=== PATIENT | female | born 1950 | race Caucasian/White ===

== ENCOUNTER → 2016-10-11 | Outpatient (CLI) | payer OTHER ==
[~2016-10-11] MED LIST: ATRIN INH; DICY20TA35 PO; LEVA45AE INH; LORA-741 PO; OXGN; PRED10TA PO; SERT50TA PO
--- NOTE | 2016-10-11 09:34 | DIAGNOSTIC IMAGING REPORT ---
GI SERIES W/AIR ROUTINE CLINICAL HISTORY: Generalized abdominal pain. COMPARISON STUDY: None. FLUOROSCOPY TIME: 0.7 minutes. 11 images obtained. FINDINGS: The patient only performed the exam in the upright position and a few prone/supine images. The patient did not participate in the remaining portions of the examination. The esophagus appeared to be normal and course and caliber. No hiatus hernia. No gastroesophageal reflux. Limited views of the stomach show no definite gastric ulcerations. The duodenal bulb and duodenal C sweep were incompletely evaluated. Orthopaedic Doctor image shows no evidence for bowel obstruction. Remaining portions of the small bowel follow-through were not obtained. IMPRESSION: Limited upper GI series as described above. However, no significant abnormality identified. Electronically signed by: Danny Catalan M.D. 10/11/2016 9:33 AM Dictated Date/Time: 10/11/2016 9:30 AM
== END | disposition home or self-care (01) ==
LOC: C.RAD 08:44
PROVIDERS: ATTEND Internal Medicine Gastroenterology
DX: R10.10 Upper abdominal pain, unspecified (principal)

== ENCOUNTER 2016-11-12 15:20 | Inpatient (IN) | payer OTHER ==
[~2016-11-12] VITALS: Ht 154.9 cm; Wt 44.2 kg
[~2016-11-12 15:20] MED LIST changes: -ATRIN INH; -DICY20TA35 PO; -LEVA45AE INH; -OXGN; -PRED10TA PO
[2016-11-12] MEDS ORDERED: DICY20TA35 PO (15:30)
[2016-11-12] MEDS ORDERED: METHYLPREDNISOLONE 125 MG VIAL IV STA (15:43)
[2016-11-12] MEDS ORDERED: PIPERACILLIN/TAZOBACTAM 3.375 GM/100ML D5W IV STA (15:44)
[2016-11-12 15:57] LABS: BASO % 2.5 %; BASO ABS # 0.07 K/uL (0-0.2); COMPLETE YES; EOS % 2.1 %; HEMATOCRIT 45.1 % (37-47); LYMPH % 20.8 %; LYMPH ABS # 0.59 K/uL (1.2-3.4); MEAN CELL VOLUME 87.2 fL (80-100); MEAN CORPUSCULAR HEMOGLOBIN 30.2 pg (25-34); MEAN CORPUSCULAR HGB CONC 34.6 g/dl (32-36); MEAN PLATELET VOLUME 9.1 fL (7.4-10.4); MONO % 10.9 %; NEUT % 63.7 %; PLATELET COUNT 162 K/uL (130-400); RED BLOOD COUNT 5.17 M/uL (4.2-5.4); WHITE BLOOD COUNT 2.84 K/uL (4.8-10.8)
[2016-11-12] MEDS ORDERED: AMPICILLIN IV SCH (16:00)
[2016-11-12] MEDS ORDERED: SODIUM CHLORIDE 0.9% IV SCH (16:00)
--- NOTE | 2016-11-12 16:14 | DIAGNOSTIC IMAGING REPORT ---
SINGLE VIEW CHEST CLINICAL HISTORY: Cough and fever. FINDINGS: An AP, portable, upright chest radiograph is compared to study dated 11/21/2011. The examination is degraded by portable technique and apical lordotic positioning. The cardiomediastinal silhouette is unremarkable. There is atherosclerotic calcification of the thoracic aorta. Advanced emphysema and chronic interstitial thickening is similar to previous. No airspace consolidation is identified typical for pneumonia. Blunting the costophrenic sulci may represent trace effusions or pleural thickening. No pneumothorax is seen. The skeletal structures are osteopenic. The bony thorax is grossly intact. IMPRESSION: 1. Advanced emphysema. 2. There is no airspace consolidation to suggest pneumonia. 3. Blunting of the costophrenic sulci could represent trace pleural effusions versus pleural thickening. Pleural thickening is favored. Electronically signed by: Alton Ratliff M.D. 11/12/2016 4:13 PM Dictated Date/Time: 11/12/2016 4:11 PM
[2016-11-12 16:15] LABS: ALT/SGPT 32 U/L (12-78); AST/SGOT 22 U/L (15-37); BLOOD UREA NITROGEN 3 mg/dl (7-18); CALCIUM 8.6 mg/dl (8.5-10.1); CARBON DIOXIDE 31 mmol/L (21-32); CHLORIDE 100 mmol/L (98-107); GLUCOSE 85 mg/dl (70-99); POTASSIUM 3.8 mmol/L (3.5-5.1); SODIUM 138 mmol/L (136-145)
[2016-11-12 16:18] LABS: ALKALINE PHOSPHATASE 74 U/L (45-117)
[2016-11-12] MEDS ORDERED: OSELTAMIVIR PHOSPHATE 75 MG CAP PO STA (17:01)
[2016-11-12] MEDS ORDERED: LORAZEPAM 0.5 MG TAB SL STA (17:07)
[2016-11-12] MEDS ORDERED: ZOLPIDEM TARTRATE 5 MG TAB PO PRN (17:15)
[2016-11-12] MEDS ORDERED: ALUMINUM/MAGNESIUM/SIMETH (MAALOX MAX) 30 ML UDC PO PRN (17:15)
[2016-11-12] MEDS ORDERED: MAGNESIUM HYDROXIDE SUSP 30 ML UDC PO PRN (17:15)
[2016-11-12] MEDS ORDERED: DICYCLOMINE HCL 20 MG TAB PO PRN (17:15)
[2016-11-12] MEDS ORDERED: ONDANSETRON INJ 2 MG/ML 2 ML VIAL IV PRN (17:15)
--- NOTE | 2016-11-12 17:20 | History and Physical ---
History & Physical Date & Time of Service: Nov 12, 2016 at 17:12 Chief Complaint: Coughing, Resp. Problems Primary Care Physician: Constance Bass M.D. History of Present Illness Source: patient pt reports of having cough . SOB , low grade fever , post nasal drip , sinus congestion for past 3 days denies of any sick contact , did not had Flu shot this year ( " I never take shots" ) experiencing Orthopnea -unable to lie flat -due to profuse post nasal drip very poor appetite last night SOB got worse , unable to take deep breath on arrival to ED she was found tachycardic, Hypoxic , SPO2 78% in RA , improved after 3 L 02 via nasal canula refused to have Neb tx -worried about side effect ( Father of anaphylaxis , cardiac shock with Albuterol neb tx ) Cxray -severe emphysema ,no obvious infiltrate afebrile Influenza A + ve Past Medical/Surgical History Medical Problems: (1) 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 (2) Chronic obstructive lung disease Status: Chronic (3) DISACCHARIDASE DEF/MALAB Status: Chronic (4) LONG QT SYNDROME Status: Chronic (5) s/p delivery Status: Resolved (6) s/p colonoscopy Permanent Comment: routine screening 01/13/09 Status: Resolved (7) s/p EGD Permanent Comment: 03/17/09 Status: Resolved (8) s/p tonsillectomy Status: Resolved (9) Sensorineural hearing loss Status: Chronic (10) Tobacco user Status: Chronic Social History Smoking Status: Current Every Day Smoker Marital Status: Housing status: lives with family Occupational Status: employed Immunizations History of Influenza Vaccine: No History of Tetanus Vaccine?: Yes Tetanus Immunization Date: Aug 17, 2009 History of Pneumococcal: Yes Pneumococcal Date: Aug 17, 2009 History of Hepatitis B Vaccine: Unknown Multi-Drug Resistant Organisms History of MDRO: No Allergies Coded Allergies: Amitriptyline (Verified Allergy, Severe, PASSED OUT, 11/12/16) Quinolones (Verified Allergy, Intermediate, urticaria, 11/21/11) also has history of prolonged QT Bacitracin (Verified Allergy, Unknown, "SPORINS" ALLERGY PER NURSING HX, ) Cephalexin (Verified Allergy, Unknown, UNKNOWN, 11/12/16) Cephalosporins (Verified Allergy, Unknown, "SPORINS" ALLERGY PER NURSING HX, 11/21/11) Ciprofloxacin (Verified Allergy, Unknown, HIVES, 11/12/16) Codeine (Verified Allergy, Unknown, ., 11/21/11) Diphenhydramine (Verified Allergy, Unknown, PER NURSING HX, 11/21/11) Macrolides and Ketolides (Verified Allergy, Unknown, UNKNOWN, 11/12/16) Neomycin (Verified Allergy, Unknown, "SPORINS" ALLERGY PER NURSING HX, 08/22) Nitrofurantoin (Verified Allergy, Unknown, DIZZY, IREGULAR HEARTBEAT, ) Polymyxin B (Verified Allergy, Unknown, "SPORINS" ALLERGY PER NURSING HX, 11/21/11) Sulfa Drugs (Verified Allergy, Unknown, "SULFA" ALLERGY, 11/21/11) Tetracycline (Verified Allergy, Unknown, unknown, 11/21/11) Propoxyphene (Verified Adverse Reaction, Severe, SPINNING, HALLUCINATIONS , 11/12/16) Morphine (Verified Adverse Reaction, Intermediate, "affects BP", 11/21/11) Sulfamethoxazole w/Trimethoprim (Verified Adverse Reaction, Intermediate, palpitations, 11/21/11) Erythromycin (Verified Adverse Reaction, Mild, agitation, 11/21/11) Metronidazole (Verified Adverse Reaction, Unknown, IRREGULAR HEART BEAT, ) Uncoded Allergies: LATEX (Allergy, Unknown, ORAL & VAGINAL SORES, 11/12/16) Home Medications Scheduled Lorazepam (Ativan), 0.5 MG PO Q6HR PRN Sertraline (Zoloft), 50 MG PO DAILY Scheduled PRN Dicyclomine Hcl (Bentyl), 1 TAB PO QID PRN for Pain Review of Systems Constitutional: + chills, + fatigue, + fever, + sweats, + weakness, + weight loss ENT: + nasal symptoms, + problem reported (post nasal drip , sinus pressure ), + sore throat Respiratory: + cough, + dyspnea at rest, + dyspnea on exertion, + shortness of breath, + sputum, + wheezing Cardiovascular: + orthopnea Abdomen: No GI bleeding, No constipation, No diarrhea, No nausea, No pain, No problem reported, No vomiting Musculoskeletal: + joint pain Genitourinary - Female: No dysmenorrhea, No dysuria, No hematuria, No menorrhagia, No metrorrhagia, No , No problem reported, No rash, No urinary frequency, No urinary incontinence, No urinary retention, No urinary urgency, No vaginal bleeding, No vaginal discharge, No vaginal itching, No vulvodynia Neurologic: + vertigo, + weakness Psychiatric: + anxiety, + insomnia Endocrine: + fatigue Physical Exam Vital Signs Date Time Temp Pulse Resp B/P Pulse Ox O2 Delivery O2 Flow Rate FiO2 11/12/16 16:01 100 Nasal Cannula 3.0 11/12/16 15:50 98 Nasal Cannula 4.0 11/12/16 15:42 90 11/12/16 15:21 37.5 100 20 140/72 85 Room Air General Appearance: + cachetic Head: normocephalic, atraumatic Eyes: normal inspection Respiratory/Chest: + respiratory distress, + decreased breath sounds, + wheezing Cardiovascular: + tachycardia Abdomen/GI: non tender, soft Extremities/Musculoskelatal: normal inspection, no calf tenderness, normal capillary refill, no pedal edema, normal range of motion Neurologic/Psych: no motor/sensory deficits, alert, normal mood/affect, oriented x 3 Diagnostics Laboratory Results Results Past 24 Hours Test 11/12/16 15:45 11/12/16 15:55 11/12/16 16:15 Range/Units White Blood Count 2.84 4.8-10.8 K/uL Red Blood Count 5.17 4.2-5.4 M/uL Hemoglobin 15.6 12.0-16.0 g/dL Hematocrit 45.1 37-47 % Mean Corpuscular Volume 87.2 80-100 fL Mean Corpuscular Hemoglobin 30.2 25-34 pg Mean Corpuscular Hemoglobin Concent 34.6 32-36 g/dl Platelet Count 162 130-400 K/uL Mean Platelet Volume 9.1 7.4-10.4 fL Neutrophils (%) (Auto) 63.7 % Lymphocytes (%) (Auto) 20.8 % Monocytes (%) (Auto) 10.9 % Eosinophils (%) (Auto) 2.1 % Basophils (%) (Auto) 2.5 % Neutrophils # (Auto) 1.81 1.4-6.5 K/uL Lymphocytes # (Auto) 0.59 1.2-3.4 K/uL Monocytes # (Auto) 0.31 0.11-0.59 K/uL Eosinophils # (Auto) 0.06 0-0.5 K/uL Basophils # (Auto) 0.07 0-0.2 K/uL RDW Standard Deviation 40.5 36.4-46.3 fL RDW Coefficient of Variation 12.6 11.5-14.5 % Immature Granulocyte % (Auto) 0.0 % Immature Granulocyte # (Auto) 0.00 0.00-0.02 K/uL Sodium Level 138 136-145 mmol/L Potassium Level 3.8 3.5-5.1 mmol/L Chloride Level 100 98-107 mmol/L Carbon Dioxide Level 31 21-32 mmol/L Anion Gap 7.0 3-11 mmol/L Blood Urea Nitrogen 3 7-18 mg/dl Creatinine 0.50 0.60-1.20 mg/dl Est Creatinine Clear Calc Drug Dose 75.1 ml/min Estimated GFR () 115.3 Estimated GFR (Non- 99.4 BUN/Creatinine Ratio 5.0 10-20 Random Glucose 85 70-99 mg/dl Calcium Level 8.6 8.5-10.1 mg/dl Total Bilirubin 0.3 0.2-1 mg/dl Direct Bilirubin < 0.1 0-0.2 mg/dl Aspartate Amino Transf (AST/SGOT) 22 15-37 U/L Alanine Aminotransferase (ALT/SGPT) 32 12-78 U/L Alkaline Phosphatase 74 45-117 U/L Total Protein 7.7 6.4-8.2 gm/dl Albumin 4.2 3.4-5.0 gm/dl Lactic Acid Level 0.6 0.4-2.0 mmol/L Influenza Type A Antigen POS for Influ A NEG Influenza Type B Antigen Neg for Influ B NEG Diagnostic Radiology SINGLE VIEW CHEST CLINICAL HISTORY: Cough and fever. FINDINGS: An AP, portable, upright chest radiograph is compared to study dated 11/21/2011. The examination is degraded by portable technique and apical lordotic positioning. The cardiomediastinal silhouette is unremarkable. There is atherosclerotic calcification of the thoracic aorta. Advanced emphysema and chronic interstitial thickening is similar to previous. No airspace consolidation is identified typical for pneumonia. Blunting the costophrenic sulci may represent trace effusions or pleural thickening. No pneumothorax is seen. The skeletal structures are osteopenic. The bony thorax is grossly intact. IMPRESSION: 1. Advanced emphysema. 2. There is no airspace consolidation to suggest pneumonia. 3. Blunting of the costophrenic sulci could represent trace pleural effusions versus pleural thickening. Pleural thickening is favored. Impression Assessment and Plan INFLUENZA A possible causing Hypoxia /COPD exacerbation Tamiflu 75 mg BID for 5 days no evidence of sepsis mild neutropenia -possible due to viral illness, repeat CBC in AM lactic acid 0.6 droplet isolation COPD EXACERBATION : hx of Chronic smoking 1 pk cig a day /50 yrs never had Pulmonology follow up or PFT done possible due to Influenza A -cont Tamiflu no evidence of pneumonia in chest Xray -advance COPD empiric abx not ordered -pt is allergic to multiple antibiotics given Solu Medrol 125 mg x1 in ED will cont Solu Medrol 40 mg IV Q 8hrs Neb tx ordered , cont supplemental 02 Pulmonology consult requested may need 2 step exercise prior to discharge HYPOXIA : due to above was hypoxic in RA on presentation 89% improved to 100 % with supplemental 02 3L via NC ( not on home 02 ) -may need 2 step exercise prior to discharge due to influenza A /COPD exacerbation Cxray : 1. Advanced emphysema. 2. There is no airspace consolidation to suggest pneumonia. cont tx for Influenza and COPD as outlined above low clinical suspicion for PE -no tachycardia /chest pain , no identifiable risk factor D Dimer 260 TOBACCO ABUSE DISORDER : hx of Chronic smoking 1 pk cig a day /50 yrs smoking cessation counselling provided refused Nicotine patch CHRONIC LONG QTc SYNDROME : check EKG repeat EKG in AM avoid medications /antibiotic that can cause Qtc prolongation monitor K /mg level DEPRESSION /ANXIETY DISORDER cont Zoloft PRN Ativan FULL CODE DVT PROPHYLAXIS : sub q heparin DISPOSITION : expected to be discharged home when medically stable Medicine follow up with Dr Constance Bass Level of Care Med/Surg Resuscitation Status FULL RESUSCITATION VTE Prophylaxis VTE Risk Assessment Done? Y/N: Yes Risk Level: Moderate Given or contraindicated: Unfractionated heparin SQ Note In my clinical judgment this beneficiary meets acute admission criteria, established by [facility], that includes being hospitalized through two midnights. Additional Copies To Constance Bass M.D.
[2016-11-12] MEDS ORDERED: LEVALBUTEROL/IPRATROPIUM NEB INH PRN (17:30)
[2016-11-12] MEDS ORDERED: PROMETHAZINE HCL INJ 12.5 MG in SODIUM CHLORIDE 0.9% 50ML 50 ML IV PRN (17:30)
[2016-11-12] MEDS ORDERED: SODIUM CHLORIDE 0.9% 1000ML 1,000 ML IV SCH (17:30)
--- NOTE | 2016-11-12 17:39 | EMERGENCY ROOM VISIT NOTE ---
History Report prepared by Herrera: Jany Denney Under the Supervision of: Dr. Matt Demarco D.O. First contact with patient: 15:26 Chief Complaint: SHORTNESS OF BREATH Stated Complaint: COUGHING, RESP. PROBLEMS History of Present Illness The patient is a 66 year old female who presents to the Emergency Room with complaints of constant shortness of breath beginning 3 days ago. The patient complains of a scratchy throat, beige productive cough, post nasal drip, and sore throat. She denies any abdominal pain, nausea, vomiting, urinary symptoms, chest pain, and fever at 99.4. She reports that she has COPD and is a smoker. She notes that she is not on oxygen at home and has no history of heart failure or recent steroid usage. The patient states that he has a lot of issues with antibiotics and only takes penicillins. She notes that she has never used an inhaler due to her father having a history of problems with inhalers. Source of History: patient Onset: 3 days ago Position: other (global) Quality: other (SOB) Timing: constant Associated Symptoms: + cough, + sorethroat, No abdominal pain, No chest pain , No fevers, No nausea, No urinary symptoms, No vomiting Note: The patient complains of a scratchy throat, post nasal drip. Review of Systems See HPI for pertinent positives & negatives. A total of 10 systems reviewed and were otherwise negative. Past Medical & Surgical Medical Problems: (1) ADJUSTMENT DISORDER WITH DEPRESSED MOOD (2) Chronic obstructive lung disease (3) DISACCHARIDASE DEF/MALAB (4) Hypoxia (5) Influenza A (6) LONG QT SYNDROME (7) s/p delivery (8) s/p colonoscopy (9) s/p EGD (10) s/p tonsillectomy (11) Sensorineural hearing loss (12) Tobacco user Family History No pertinent family history stated. Social History Smoking Status: Current Every Day Smoker Alcohol Use: occasionally Marital Status: Occupation Status: employed Current/Historical Medications Scheduled Lorazepam (Ativan), 0.5 MG PO Q6HR PRN Sertraline (Zoloft), 50 MG PO DAILY Scheduled PRN Dicyclomine Hcl (Bentyl), 1 TAB PO QID PRN for Pain Allergies Coded Allergies: Amitriptyline (Verified Allergy, Severe, PASSED OUT, 11/12/16) Quinolones (Verified Allergy, Intermediate, urticaria, 11/21/11) also has history of prolonged QT Bacitracin (Verified Allergy, Unknown, "SPORINS" ALLERGY PER NURSING HX, ) Cephalexin (Verified Allergy, Unknown, UNKNOWN, 11/12/16) Cephalosporins (Verified Allergy, Unknown, "SPORINS" ALLERGY PER NURSING HX, 11/21/11) Ciprofloxacin (Verified Allergy, Unknown, HIVES, 11/12/16) Codeine (Verified Allergy, Unknown, ., 11/21/11) Diphenhydramine (Verified Allergy, Unknown, PER NURSING HX, 11/21/11) Macrolides and Ketolides (Verified Allergy, Unknown, UNKNOWN, 11/12/16) Neomycin (Verified Allergy, Unknown, "SPORINS" ALLERGY PER NURSING HX, 08/22) Nitrofurantoin (Verified Allergy, Unknown, DIZZY, IREGULAR HEARTBEAT, ) Polymyxin B (Verified Allergy, Unknown, "SPORINS" ALLERGY PER NURSING HX, 11/21/11) Sulfa Drugs (Verified Allergy, Unknown, "SULFA" ALLERGY, 11/21/11) Tetracycline (Verified Allergy, Unknown, unknown, 11/21/11) Propoxyphene (Verified Adverse Reaction, Severe, SPINNING, HALLUCINATIONS , 11/12/16) Morphine (Verified Adverse Reaction, Intermediate, "affects BP", 11/21/11) Sulfamethoxazole w/Trimethoprim (Verified Adverse Reaction, Intermediate, palpitations, 11/21/11) Erythromycin (Verified Adverse Reaction, Mild, agitation, 11/21/11) Metronidazole (Verified Adverse Reaction, Unknown, IRREGULAR HEART BEAT, ) Uncoded Allergies: LATEX (Allergy, Unknown, ORAL & VAGINAL SORES, 11/12/16) Physical Exam Vital Signs Date Time Temp Pulse Resp B/P Pulse Ox O2 Delivery O2 Flow Rate FiO2 11/12/16 16:54 143/77 11/12/16 16:20 92 21 99 11/12/16 16:01 100 Nasal Cannula 3.0 11/12/16 15:50 98 Nasal Cannula 4.0 11/12/16 15:42 90 11/12/16 15:21 37.5 100 20 140/72 85 Room Air Physical Exam GENERAL: ill appearing, mild distress, non-toxic, on nasal canula. EYE EXAM: normal conjunctiva OROPHARYNX: no exudate, no erythema, lips, buccal mucosa, and tongue normal and mucous membranes are moist NECK: supple, no nuchal rigidity, no adenopathy, non-tender, no JVD LUNGS: Minimal air movement bilaterally with diffuse mild wheezing. HEART: no murmurs, S1 normal and S2 normal ABDOMEN: abdomen soft, non-tender, normo-active bowel sounds, no masses, no rebound or guarding. BACK: Back is symmetrical on inspection and there is no deformity, no midline tenderness, no CVA tenderness. SKIN: no rashes and no bruising UPPER EXTREMITIES: upper extremities are grossly normal. LOWER EXTREMITIES: Calves are equal bilaterally. No pitting edema. NEURO EXAM: Normal sensorium, cranial nerves II-XII grossly intact, normal speech, no gross weakness of arms, no gross weakness of legs. Medical Decision & Procedures ER Provider Diagnostic Interpretation: Xray results per the radiologist and my interpretation. SINGLE VIEW CHEST FINDINGS: An AP, portable, upright chest radiograph is compared to study dated 11/21/2011. The examination is degraded by portable technique and apical lordotic positioning. The cardiomediastinal silhouette is unremarkable. There is atherosclerotic calcification of the thoracic aorta. Advanced emphysema and chronic interstitial thickening is similar to previous. No airspace consolidation is identified typical for pneumonia. Blunting the costophrenic sulci may represent trace effusions or pleural thickening. No pneumothorax is seen. The skeletal structures are osteopenic. The bony thorax is grossly intact. IMPRESSION: 1. Advanced emphysema. 2. There is no airspace consolidation to suggest pneumonia. 3. Blunting of the costophrenic sulci could represent trace pleural effusions versus pleural thickening. Pleural thickening is favored. Electronically signed by: Alton Ratliff M.D. 11/12/2016 4:13 PM Dictated Date/Time: 11/12/2016 4:11 PM Laboratory Results 11/12/16 15:45 Red Blood Count 5.17, Mean Corpuscular Volume 87.2, Mean Corpuscular Hemoglobin 30.2, Mean Corpuscular Hemoglobin Concent 34.6, Mean Platelet Volume 9.1, Neutrophils (%) (Auto) 63.7, Lymphocytes (%) (Auto) 20.8, Monocytes (%) (Auto) 10.9, Eosinophils (%) (Auto) 2.1, Basophils (%) (Auto) 2.5, Neutrophils # (Auto ) 1.81, Lymphocytes # (Auto) 0.59, Monocytes # (Auto) 0.31, Eosinophils # (Auto ) 0.06, Basophils # (Auto) 0.07 11/12/16 15:45 Test 11/12/16 15:45 11/12/16 15:55 11/12/16 16:15 White Blood Count 2.84 K/uL (4.8-10.8) Red Blood Count 5.17 M/uL (4.2-5.4) Hemoglobin 15.6 g/dL (12.0-16.0) Hematocrit 45.1 % (37-47) Mean Corpuscular Volume 87.2 fL (80-100) Mean Corpuscular Hemoglobin 30.2 pg (25-34) Mean Corpuscular Hemoglobin Concent 34.6 g/dl (32-36) Platelet Count 162 K/uL (130-400) Mean Platelet Volume 9.1 fL (7.4-10.4) Neutrophils (%) (Auto) 63.7 % Lymphocytes (%) (Auto) 20.8 % Monocytes (%) (Auto) 10.9 % Eosinophils (%) (Auto) 2.1 % Basophils (%) (Auto) 2.5 % Neutrophils # (Auto) 1.81 K/uL (1.4-6.5) Lymphocytes # (Auto) 0.59 K/uL (1.2-3.4) Monocytes # (Auto) 0.31 K/uL (0.11-0.59) Eosinophils # (Auto) 0.06 K/uL (0-0.5) Basophils # (Auto) 0.07 K/uL (0-0.2) RDW Standard Deviation 40.5 fL (36.4-46.3) RDW Coefficient of Variation 12.6 % (11.5-14.5) Immature Granulocyte % (Auto) 0.0 % Immature Granulocyte # (Auto) 0.00 K/uL (0.00-0.02) Prothrombin Time 11.5 SECONDS (9.0-12.0) Prothromb Time International Ratio 1.1 (0.9-1.1) Activated Partial Thromboplast Time 35.0 SECONDS (21.0-31.0) Partial Thromboplastin Ratio 1.3 D-Dimer 260 ug/L FEU (0-500) Anion Gap 7.0 mmol/L (3-11) Est Creatinine Clear Calc Drug Dose 75.1 ml/min Estimated GFR () 115.3 Estimated GFR (Non- 99.4 BUN/Creatinine Ratio 5.0 (10-20) Calcium Level 8.6 mg/dl (8.5-10.1) Magnesium Level 2.0 mg/dl (1.8-2.4) Total Bilirubin 0.3 mg/dl (0.2-1) Direct Bilirubin < 0.1 mg/dl (0-0.2) Aspartate Amino Transf (AST/SGOT) 22 U/L (15-37) Alanine Aminotransferase (ALT/SGPT) 32 U/L (12-78) Alkaline Phosphatase 74 U/L (45-117) Total Protein 7.7 gm/dl (6.4-8.2) Albumin 4.2 gm/dl (3.4-5.0) Lactic Acid Level 0.6 mmol/L (0.4-2.0) Influenza Type A Antigen POS for Influ A (NEG) Influenza Type B Antigen Neg for Influ B (NEG) Laboratory results per my review. Medications Administered Medications (Trade) Dose Ordered Sig/Leroy Route Start Time Stop Time Status Last Admin Dose Admin Methylprednisolone Sodium Succinate (Solu-Medrol IV) 125 mg NOW STAT IV 11/12/16 15:43 11/12/16 15:44 DC 11/12/16 15:58 125 MG Oseltamivir Phosphate (Tamiflu Cap) 75 mg NOW STAT PO 11/12/16 17:01 11/12/16 17:02 DC 11/12/16 17:43 75 MG Lorazepam (Ativan Tab) 0.5 mg NOW STAT SL 11/12/16 17:07 11/12/16 17:09 DC 11/12/16 17:43 0.5 MG ECG Indication: SOB/dyspnea Rate (beats per minute): 90 Rhythm: sinus rhythm Findings: Q waves (Septal), other (normal axis) ED Course ED COURSE: Vital signs were reviewed and showed hypoxia The patients medical record was reviewed The above diagnostic studies were performed and reviewed. ED treatments and interventions as stated above. 1532: The patient was evaluated in room B12B. A complete history and physical examination was performed. Patient refused neb treatments and all antibiotics. 1543: Solu-Medrol IV 125mg IV. 1555: I reevaluated the patient and talked with her about putting her on Zosyn. She said that she sometimes passes out so she wants to do ampicillin. 1600: Ampicillin Sodium 800mg/Sodium Chloride 53.2 ml @ 100mls/hr IV. 1700: I updated the patient and re-paged Luci. 1701: Tamiflu Cap 75mg PO. 1707: Ativan Tab 0.5mg SL. 1707: I reviewed the patient's case with Dr. Covarrubias. She will evaluate the patient for further management. 1715: Upon reevaluation, the patient is hemodynamically stable.I discussed my findings with the patient and she understands and agrees with the treatment plan. Based on the patients age, coexisting illnesses, exam and lab findings the decision to treat as an inpatient was made. The patient remained stable while under my care. The patient will be evaluated for further management. Medical Decision Differential diagnoses includes but is not limited to pneumonia, bronchitis, COPD/Asthma exacerbation, pneumothorax, pulmonary embolism, congestive heart failure, acute coronary syndrome Patient is a 58-year-old female who presents the ER respiratory distress. Pulse ox was 70% on room air. She is placed on 4 L nasal cannula with improvement in her O2 saturations into the 90s. She has a history of COPD and new productive cough. She has of this has been worsening for at least 24 hours. Patient has multiple allergies to antibiotics. She notes that she is only able to take amoxicillin. Consequently I did order her dose of ampicillin. Following this influenza did come back positive. Chest x-ray showed no focal infiltrate. She was given steroids. She declined a treatments as this killed her father per the patient. With the oxygen and steroid she did feel slightly better. She is still hypoxic. She is admitted to internal medicine with influenza causing hypoxia and a COPD exacerbation. Consults Time Called: [phone] Consulting Physician: Dr. Covarrubias Returned Call: [phone] I reviewed the patient's case with Dr. Covarrubias. She will evaluate the patient for further management. Impression Primary Impression: Influenza Additional Impressions: Hypoxia COPD exacerbation Scribe Attestation The scribe's documentation has been prepared under my direction and personally reviewed by me in its entirety. I confirm that the note above accurately reflects all work, treatment, procedures, and medical decision making performed by me. Departure Information Dispostion Being Evaluated By Hospitalist Referrals Constance Bass M.D. (PCP) Patient Instructions My [facility] Problem Qualifiers
[2016-11-12] MEDS ORDERED: LEVALBUTEROL 1.25MG/0.5ML NEB INH PRN (18:00)
[2016-11-12] MEDS ORDERED: POLYETHYLENE (MIRALAX) 17 GM PACK PO PRN (18:00)
[2016-11-12] MEDS ORDERED: IPRATROPIUM BROMIDE NEB SOLN 0.02% 2.5 ML VIAL INH PRN (18:00)
[2016-11-12 18:09] LABS: INR 1.1 (0.9-1.1); PARTIAL THROMBOPLASTIN RATIO 1.3; PROTHROMBIN TIME (PATIENT) 11.5 SECONDS (9.0-12.0)
[2016-11-12 19:42] VITALS: PULSE 107; O2SAT 96
[2016-11-12 20:25] VITALS: BP 151/76; PULSE 95; TEMP 37.3; O2SAT 96; Ht 154.9 cm; Wt 44.2 kg
[2016-11-12] MEDS: HEPARIN SOD 5000 UNIT/0.5 ML CARP SQ SCH (20:26)
[2016-11-12] MEDS: OSELTAMIVIR PHOSPHATE 75 MG CAP PO SCH (20:26)
[2016-11-13] VITALS: O2SAT 95
[2016-11-13] MEDS: METHYLPREDNISOLONE IV 40 MG in SYRINGE 0 ML IV SCH ×3 (00:06→20:33)
[2016-11-13 00:12] VITALS: BP 108/67; PULSE 81; TEMP 37.6; O2SAT 97
[2016-11-13] MEDS: ACETAMINOPHEN 325 MG TAB PO PRN ×2 (03:59→09:40)
[2016-11-13 07:56] LABS: CREATININE 0.43 mg/dl (0.60-1.20); HEMATOCRIT 37.7 % (37-47); MEAN CELL VOLUME 87.9 fL (80-100); MEAN CORPUSCULAR HEMOGLOBIN 29.6 pg (25-34); MEAN CORPUSCULAR HGB CONC 33.7 g/dl (32-36); MEAN PLATELET VOLUME 9.1 fL (7.4-10.4); PLATELET COUNT 159 K/uL (130-400); RED BLOOD COUNT 4.29 M/uL (4.2-5.4)
[2016-11-13 07:57] LABS: BUN/CREATININE RATIO 10.5 (10-20); CALCIUM 8.1 mg/dl (8.5-10.1); POTASSIUM 4.2 mmol/L (3.5-5.1)
[2016-11-13 08:00] VITALS: O2SAT 97
[2016-11-13 08:04] VITALS: BP 109/56; PULSE 65; TEMP 36.3; O2SAT 93
[2016-11-13] MEDS: HEPARIN SOD 5000 UNIT/0.5 ML CARP SQ SCH ×2 (09:00→20:33)
[2016-11-13] MEDS: OSELTAMIVIR PHOSPHATE 75 MG CAP PO SCH ×2 (09:22→20:32)
[2016-11-13] MEDS: SERTRALINE HCL 50 MG TAB PO SCH (09:23)
--- NOTE | 2016-11-13 10:43 | Progress Note ---
Internal Med Progress Note Date of Service: Nov 13, 2016. Provider Documentation: SUBJECTIVE: Patient is seen and examine jahaira bedside. She feels better today. SOB and dry cough improving. Denies any chest pain, nausea, vomiting, dizziness, abd pain. Offers no other complaints. OBJECTIVE: Vital Signs-as noted below Physical Exam: General Appearance:Thin, fragile, no apparent distress Head: normocephalic, Atraumatic Eyes: normal inspection, EOMI, PERRLA Neck: supple, Trachea midline Respiratory/Chest: Decreased breath sounds, minimal creps at bases, No accessory muscle use Cardiovascular: S1, S2, No murmur Abdomen/GI:Soft, Non tender, Bowel sounds present Extremities/Musculoskelatal:normal inspection, no edema Neurologic/Psych:AAOX3, grossly no focal neurological deficits Skin: normal color, warm Lab data as noted below. ASSESSMENT & PLAN: INFLUENZA A Continue Tamiflu 75 mg BID for 5 days neutropenia -possible due to viral illness lactic acid 0.6 droplet isolation Monitor WBC, check Procalcitonin ACUTE HYPOXIC RESPIRATORY FAILURE secondary to Influenza/COPD Patient presented with hypoxic, 85% on RA CXR:Advanced COPD, no consolidation, likely pleural thickening continue Tamiflu, IV steroids D Dimer: 260, No signs of PE ACUTE COPD EXACERBATION : H/O Chronic smoking 1 pk per day for 50 yrs Never had Pulmonology follow up or PFT done possible due to Influenza A empiric abx not ordered -pt is allergic to multiple antibiotics Continue Solu Medrol 40 mg IV BID Neb PRN, cont supplemental 02 Pulmonology consulted May need 2 step exercise prior to discharge TOBACCO ABUSE DISORDER : smoking cessation counselling provided refused Nicotine patch CHRONIC LONG QTc SYNDROME : EKG: QTC wnl monitor K /mg level DEPRESSION /ANXIETY DISORDER cont Zoloft PRN Ativan CODE STATUS: FULL CODE DVT PROPHYLAXIS : sub q heparin DISPOSITION : Continue to monitor Medicine follow up with Dr Constance Bass PROCEDURES; CXR: 1. Advanced emphysema. 2. There is no airspace consolidation to suggest pneumonia. 3. Blunting of the costophrenic sulci could represent trace pleural effusions versus pleural thickening. Pleural thickening is favored. Vital Signs: Date Time Temp Pulse Resp B/P Pulse Ox O2 Delivery O2 Flow Rate FiO2 11/13/16 08:04 36.3 65 18 109/56 93 Nasal Cannula 3.0 11/13/16 00:12 37.6 81 18 108/67 97 3.0 11/13/16 00:00 95 Nasal Cannula 3.0 11/12/16 20:25 37.3 95 20 151/76 96 Nasal Cannula 3.0 11/12/16 19:42 107 22 96 Nasal Cannula 4.0 11/12/16 18:39 97 24 133/79 95 Nasal Cannula 2.5 11/12/16 18:20 98 17 96 11/12/16 17:44 115/84 11/12/16 17:44 94 20 115/84 95 Nasal Cannula 3.0 11/12/16 17:20 95 15 96 11/12/16 16:54 143/77 11/12/16 16:20 92 21 99 11/12/16 16:01 100 Nasal Cannula 3.0 11/12/16 15:50 98 Nasal Cannula 4.0 11/12/16 15:42 90 11/12/16 15:21 37.5 100 20 140/72 85 Room Air Lab Results: Results Past 24 Hours Test 11/12/16 15:45 11/12/16 15:55 11/12/16 16:15 11/13/16 06:50 Range/Units White Blood Count 2.84 1.50 4.8-10.8 K/uL Red Blood Count 5.17 4.29 4.2-5.4 M/uL Hemoglobin 15.6 12.7 12.0-16.0 g/dL Hematocrit 45.1 37.7 37-47 % Mean Corpuscular Volume 87.2 87.9 80-100 fL Mean Corpuscular Hemoglobin 30.2 29.6 25-34 pg Mean Corpuscular Hemoglobin Concent 34.6 33.7 32-36 g/dl Platelet Count 162 159 130-400 K/uL Mean Platelet Volume 9.1 9.1 7.4-10.4 fL Neutrophils (%) (Auto) 63.7 % Lymphocytes (%) (Auto) 20.8 % Monocytes (%) (Auto) 10.9 % Eosinophils (%) (Auto) 2.1 % Basophils (%) (Auto) 2.5 % Neutrophils # (Auto) 1.81 1.4-6.5 K/uL Lymphocytes # (Auto) 0.59 1.2-3.4 K/uL Monocytes # (Auto) 0.31 0.11-0.59 K/uL Eosinophils # (Auto) 0.06 0-0.5 K/uL Basophils # (Auto) 0.07 0-0.2 K/uL RDW Standard Deviation 40.5 40.8 36.4-46.3 fL RDW Coefficient of Variation 12.6 12.7 11.5-14.5 % Immature Granulocyte % (Auto) 0.0 % Immature Granulocyte # (Auto) 0.00 0.00-0.02 K/uL Prothrombin Time 11.5 9.0-12.0 SECONDS Prothromb Time International Ratio 1.1 0.9-1.1 Activated Partial Thromboplast Time 35.0 21.0-31.0 SECONDS Partial Thromboplastin Ratio 1.3 D-Dimer 260 0-500 ug/L FEU Sodium Level 138 134 136-145 mmol/L Potassium Level 3.8 4.2 3.5-5.1 mmol/L Chloride Level 100 98 98-107 mmol/L Carbon Dioxide Level 31 27 21-32 mmol/L Anion Gap 7.0 9.0 3-11 mmol/L Blood Urea Nitrogen 3 5 7-18 mg/dl Creatinine 0.50 0.43 0.60-1.20 mg/dl Est Creatinine Clear Calc Drug Dose 75.1 87.4 ml/min Estimated GFR () 115.3 121.1 Estimated GFR (Non- 99.4 104.5 BUN/Creatinine Ratio 5.0 10.5 10-20 Random Glucose 85 98 70-99 mg/dl Calcium Level 8.6 8.1 8.5-10.1 mg/dl Magnesium Level 2.0 2.0 1.8-2.4 mg/dl Total Bilirubin 0.3 0.2-1 mg/dl Direct Bilirubin < 0.1 0-0.2 mg/dl Aspartate Amino Transf (AST/SGOT) 22 15-37 U/L Alanine Aminotransferase (ALT/SGPT) 32 12-78 U/L Alkaline Phosphatase 74 45-117 U/L Total Protein 7.7 6.4-8.2 gm/dl Albumin 4.2 3.4-5.0 gm/dl Lactic Acid Level 0.6 0.4-2.0 mmol/L Influenza Type A Antigen POS for Influ A NEG Influenza Type B Antigen Neg for Influ B NEG Test 11/13/16 10:38 Range/Units
--- NOTE | 2016-11-13 11:20 | PULMONARY CONSULTATION ---
DATE OF CONSULTATION: 11/13/2016 HISTORY OF PRESENT ILLNESS: The patient is a 66-year-old female who was admitted to the hospital through the Emergency Room with worsening shortness of breath. Dr. Covarrubias has asked me to evaluate the patient from a pulmonary standpoint. She actually put the consult in for Dr. Munoz but he is away on vacation, I am covering the pulmonary service this week. The patient has had development of cough associated with shortness of breath about 5 days ago. She then 3 days ago developed some coryza associated with mild sore throat, sputum production but the sputum was beige in color but she only produced sputum twice with coughing. She denies aspiration, fevers or night sweats, developed worsening shortness of breath with a temp of 99.4. She was seen then in the Emergency Room with shortness of breath by Dr. Matt Demarco. Hemodynamically she was stable with an oxygen saturation of 85% at 1521 hours yesterday on room air, on 3 liters was 100%. She was admitted to the hospital, states she feels considerably improved today. The rhinitis is improving. She has not had a cough. She has not been out of bed much except to go to the bathroom, has some mild shortness of breath with exertion. Travel history and environmental histories are otherwise unremarkable. She is not using any inhalers at home. No one in her family has been ill. REVIEW OF SYSTEMS: Otherwise unremarkable. PAST MEDICAL HISTORY: Significant for chronic obstructive lung disease, prolonged QT syndrome, disaccharidase deficiency, adjustment disorder. PAST SURGICAL HISTORY: Positive for tonsillectomy, colonoscopy, EGD, recent upper GI series and a . She also has some hearing loss. FAMILY HISTORY: Unremarkable. SOCIAL HISTORY: She started smoking about age 12, about a pack a day and still smoking a pack of cigarettes a day, which gives her about [id number] history of cigarette smoking. She is not an alcohol user. 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 She is originally from [place]. ALLERGIES: NOTED AND ARE MULTIPLE. SHE IS RELUCTANT TO TAKE ALBUTEROL BECAUSE APPARENTLY HER FATHER FROM ANAPHYLAXIS FROM THAT MEDICATION. PHYSICAL EXAMINATION: VITAL SIGNS: Stable now, blood pressure is 108/67, oxygen saturation 97% on 3 liters and she has been afebrile since admission with a temp of 37.5 at the time of admission. Her weight is 44.2 kilograms. GENERAL: She was here with chest pain in 2012. Her weight was 60 kilograms at that point, so she has lost a considerable amount of weight over the last 5 years. HEENT: Unremarkable. No coryza is noted. No posterior pharyngeal abnormalities noted. There is no thrush. No adenopathy is noted. Carotid upstroke normal. Thyroid normal. She is quite thin. Expansion of the thorax is very good with deep inspiration. HEART: Regular rate and rhythm. No murmurs are heard. LUNGS: Reveal decreased breath sounds bilaterally, otherwise are clear. ABDOMEN: Soft, nontender. She has no cyanosis, clubbing or edema. EKG shows probable lead reversal with I suspect some right atrial enlargement, poor R-wave progression across the precordium and she could have possible septal infarction. Her chest x-ray revealed some cardiomegaly with probable pleural thickening at the left lower lobe area laterally. No pneumothorax is noted. There appears to be an apical lordotic film as well. Some chronic interstitial changes are noted compared to previous chest x-ray of 11/21/2011. I do not believe it has changed appreciably. No pulmonary infiltrates are noted. LABORATORY DATA: White count was 2.84, hemoglobin 15.6, hematocrit 45%, platelet count of 162,000. Chemistry profile is unremarkable with normal liver function studies. Lactate level was normal at 0.6 as well as the coagulation profile and D-dimer. Influenza A antigen is positive, influenza B antigen is negative. IMPRESSION: 1. Chronic obstructive pulmonary disease with exacerbation. 2. Influenza A. 3. Gastroesophageal reflux disease. RECOMMENDATIONS: 1. Continue with her present medications. I think the methylprednisolone could be tapered down to 20 mg q. 8 hours and perhaps she could be placed on prednisone starting tomorrow. 2. I think the Tamiflu may help but usually I think should be started within 48 hours of the illness and she has had this for about 4 days, but she seems to be tolerating it well. As long as she does not develop any significant vertigo, that could be finished out over a several-day period of time. 3. Continue on the Xopenex and Atrovent 4 times a day as needed. She has no wheezing now. 4. Smoking cessation discussed with the patient at great length. Overall, she is stable today. Thanks for asking me to evaluate Anish Fatemeh. Dr. Tuttle will tack picker her care tomorrow morning.
[2016-11-13 15:35] VITALS: BP 119/68; PULSE 66; TEMP 36.8; O2SAT 96
[2016-11-13 20:00] VITALS: O2SAT 95
[2016-11-13] MEDS: LORAZEPAM 0.5 MG TAB PO PRN (20:31)
[2016-11-14 00:36] VITALS: BP 127/64; PULSE 76; TEMP 36.7; O2SAT 92
[2016-11-14 06:41] LABS: COMPLETE YES; HEMATOCRIT 42.6 % (37-47); IG% 0.3 %; LYMPH ABS # 0.95 K/uL (1.2-3.4); MEAN CELL VOLUME 89.5 fL (80-100); MEAN CORPUSCULAR HEMOGLOBIN 29.6 pg (25-34); MEAN CORPUSCULAR HGB CONC 33.1 g/dl (32-36); MONO % 10.1 %; NEUT % 63.6 %; PLATELET COUNT 170 K/uL (130-400); RED BLOOD COUNT 4.76 M/uL (4.2-5.4); WHITE BLOOD COUNT 3.65 K/uL (4.8-10.8)
[2016-11-14 06:58] VITALS: BP 128/73; PULSE 64; TEMP 36.7; O2SAT 93
[2016-11-14 07:16] LABS: BUN/CREATININE RATIO 10.9 (10-20); CALCIUM 8.3 mg/dl (8.5-10.1); CREATININE 0.49 mg/dl (0.60-1.20); MAGNESIUM 2.2 mg/dl (1.8-2.4); POTASSIUM 4.4 mmol/L (3.5-5.1)
[2016-11-14] MEDS: SERTRALINE HCL 50 MG TAB PO SCH (09:37)
[2016-11-14] MEDS: OSELTAMIVIR PHOSPHATE 75 MG CAP PO SCH ×2 (09:37→21:00)
[2016-11-14] MEDS: HEPARIN SOD 5000 UNIT/0.5 ML CARP SQ SCH ×2 (09:37→20:50)
[2016-11-14] MEDS: METHYLPREDNISOLONE IV 40 MG in SYRINGE 0 ML IV SCH ×2 (09:38→21:17)
--- NOTE | 2016-11-14 11:42 | Pulmonology Progress Note ---
Pulmonary Progress Note Date of Service Nov 14, 2016. Attending Dr. Tuttle Subjective Feeling improved today. Denies any increased cough, dyspnea, wheeze or chest pain. Slept well over the night last night for the first time in several days. Denies any edema. Anticipating ambulating the halls today. Objective 66-yo female admitted to [facility] through the ER 11/12/16 with symptoms of cough, malaise and hypoxia. CXR 11/12/16 consistent with emphysema and subtle pleural thickening. Influenza PCR: + Influenza A. Pct: <0.05. She was treated with IV steroid, oseltamivir (day #3) and PRN levalbuterol-ipratropium (received x 1 11/12). Of note, she is hesitant to take any medications/inhalers on a daily basis but stated that she did tolerate levalbuterol-ipratropium x 1 without complication. PMHx includes: COPD/emphysema (no prior PFTs or pulmonary f/u), h/o long QTc, GERD, and current tobacco use: 50-pack year. Today: - 92-93% O2 via 2-3LPM nasal cannula - WBC/Hgb/Hct/Plts: 3.65/14.1/42.6/170 - CO2 elevated 35 (from 27) Physical Exam: Constitutional: Well developed thin female sitting upright in hospital bed. No acute distress Head: + facial symmetry Eyes: EOMi, PERRLA, no injection Mouth: Moist mucous membranes. Several missing teeth. No visible lesions. Respiratory: Non-labored respirations. Very reduced air movement bilaterally. No wheeze, rales or rhonchi. CV: RRR, no MRG. Warm and perfused peripherally. MSK/Extremities: Moving and developed symmetrically. No peripheral edema or erythema Neurologic: A&O. Good data recall. Appropriate affect. Assessment & Plan 66-yo female admitted with exacerbation of COPD + Influenza A. She is responding well to current treatment with steroid and oseltamivir. We did discuss her daily inhalers and prior pulmonary care. She is very resistant to taking any new medications and specifically - long-acting medications/inhalers. She did tolerate levalbuterol-ipratropium 11/12/16 and is willing to continue this regimen as an outpatient. She stated she would not use a medication like Spiriva or a LABA/ICS secondary to her fears of an adverse. 1. Wean steroid to 50mg PO prednisone tomorrow 2. Ambulatory O2 assessment prior to discharge: 2-step 3. Trial Atrovent and Xopenex HFA TID in-house with spacer under observation - has tolerated nebulized formulation 4. Will need lung CA screening CT - chest and PFTs as part of outpatient follow- up Data Medications: Current Inpatient Medications Medications (Trade) Dose Ordered Sig/Leroy Route Start Time Stop Time Status Last Admin Dose Admin Acetaminophen (Tylenol Tab) 650 mg Q4H PRN PO 11/12/16 17:15 12/12/16 17:14 11/13/16 09:40 650 MG Al Hydrox/Mg Hydrox/Simethicone (Maalox Max Susp) 15 ml Q4H PRN PO 11/12/16 17:15 12/12/16 17:14 Magnesium Hydroxide (Milk Of Magnesia Susp) 30 ml Q6H PRN PO 11/12/16 17:15 12/12/16 17:14 Polyethylene (Miralax Powder Packet) 17 gm DAILY PRN PO 11/12/16 18:00 12/12/16 17:59 Zolpidem Tartrate (Ambien Tab) 5 mg HSZ PRN PO 11/12/16 17:15 12/12/16 17:14 Heparin Sodium (Porcine) (Heparin Sq 5000 Unit/0.5ml) 5,000 unit Q12H SQ 11/12/16 21:00 12/12/16 20:59 Oseltamivir Phosphate (Tamiflu Cap) 75 mg BID PO 11/12/16 21:00 11/17/16 20:59 11/14/16 09:37 75 MG Dicyclomine HCl (Bentyl Tab) 20 mg QID PRN PO 11/12/16 17:15 12/12/16 17:14 Lorazepam (Ativan Tab) 0.5 mg Q6 PRN PO 11/12/16 17:15 12/12/16 17:14 11/13/16 20:31 0.5 MG Sertraline HCl 50 mg 50 mg DAILY PO 11/13/16 09:00 12/13/16 08:59 11/14/16 09:37 50 MG Promethazine HCl/ Sodium Chloride (Phenergan Inj/ Nss 50ml) 50.5 ml @ 204 mls/hr Q6H PRN IV 11/12/16 17:30 12/12/16 17:29 Ipratropium [place] (Atrovent 0.02% 0.5MG/2.5ML Neb) 0.5 mg Q6R PRN INH 11/12/16 18:00 12/12/16 17:59 11/12/16 19:41 0.5 MG Levalbuterol 1.25 mg 1.25 mg Q6R PRN INH 11/12/16 18:00 12/12/16 17:59 11/12/16 19:41 1.25 MG Methylprednisolone Sodium Succinate/ Syringe (Solu-Medrol IV/ Syringe) 0.64 ml @ 1.5 mls/min BID IV 11/13/16 21:00 12/13/16 20:59 11/14/16 09:38 1.5 MLS/MIN I & O: 24-Hour Column 11/14/16 07:59 Intake Total 1435 ml Output Total 3700 ml Balance -2265 ml Vital Signs: Date Time Temp Pulse Resp B/P Pulse Ox O2 Delivery O2 Flow Rate FiO2 11/14/16 08:30 Nasal Cannula 2.0 11/14/16 06:58 36.7 64 18 128/73 93 Nasal Cannula 2.0 11/14/16 00:36 36.7 76 18 127/64 92 3.0 11/14/16 00:00 Nasal Cannula 2.0 11/13/16 20:00 Nasal Cannula 3.0 11/13/16 16:00 Room Air 11/13/16 15:35 36.8 66 18 119/68 96 Nasal Cannula 3.0 Laboratory Results: Last 24 Hours Test 11/14/16 06:22 White Blood Count 3.65 K/uL Red Blood Count 4.76 M/uL Hemoglobin 14.1 g/dL Hematocrit 42.6 % Mean Corpuscular Volume 89.5 fL Mean Corpuscular Hemoglobin 29.6 pg Mean Corpuscular Hemoglobin Concent 33.1 g/dl Platelet Count 170 K/uL Mean Platelet Volume 9.0 fL Neutrophils (%) (Auto) 63.6 % Lymphocytes (%) (Auto) 26.0 % Monocytes (%) (Auto) 10.1 % Eosinophils (%) (Auto) 0.0 % Basophils (%) (Auto) 0.0 % Neutrophils # (Auto) 2.32 K/uL Lymphocytes # (Auto) 0.95 K/uL Monocytes # (Auto) 0.37 K/uL Eosinophils # (Auto) 0.00 K/uL Basophils # (Auto) 0.00 K/uL RDW Standard Deviation 42.2 fL RDW Coefficient of Variation 12.8 % Immature Granulocyte % (Auto) 0.3 % Immature Granulocyte # (Auto) 0.01 K/uL Sodium Level 140 mmol/L Potassium Level 4.4 mmol/L Chloride Level 100 mmol/L Carbon Dioxide Level 35 mmol/L Anion Gap 5.0 mmol/L Blood Urea Nitrogen 5 mg/dl Creatinine 0.49 mg/dl Est Creatinine Clear Calc Drug Dose 76.7 ml/min Estimated GFR () 116.0 Estimated GFR (Non- 100.1 BUN/Creatinine Ratio 10.9 Random Glucose 87 mg/dl Calcium Level 8.3 mg/dl Magnesium Level 2.2 mg/dl
[2016-11-14 14:27] VITALS: BP 132/70; PULSE 67; TEMP 36.8; O2SAT 94
--- NOTE | 2016-11-14 14:27 | Progress Note ---
Internal Med Progress Note Date of Service: Nov 14, 2016. Provider Documentation: SUBJECTIVE: Patient is seen and examine jahaira bedside. States having some productive cough. SOB and wheezing improving. Denies any chest pain, nausea, vomiting, dizziness, abd pain. Offers no other complaints. OBJECTIVE: Vital Signs-as noted below Physical Exam: General Appearance:Thin, fragile, no apparent distress Head: normocephalic, Atraumatic Eyes: normal inspection, EOMI, PERRLA Neck: supple, Trachea midline Respiratory/Chest: Decreased breath sounds, CTA, No accessory muscle use Cardiovascular: S1, S2, No murmur Abdomen/GI:Soft, Non tender, Bowel sounds present Extremities/Musculoskelatal:normal inspection, no edema Neurologic/Psych:AAOX3, grossly no focal neurological deficits Skin: normal color, warm Lab data as noted below. ASSESSMENT & PLAN: INFLUENZA A Continue Tamiflu 75 mg BID for 5 days neutropenia -possible due to viral illness, improving lactic acid 0.6 droplet isolation Monitor WBC Procalcitonin:wnl ACUTE HYPOXIC RESPIRATORY FAILURE secondary to Influenza/COPD Patient presented with hypoxic, 85% on RA CXR:Advanced COPD, no consolidation, likely pleural thickening continue Tamiflu, IV steroids D Dimer: 260, No signs of PE ACUTE COPD EXACERBATION : H/O Chronic smoking 1 pk per day for 50 yrs Never had Pulmonology follow up or PFT done possible due to Influenza A empiric abx not ordered -pt is allergic to multiple antibiotics Continue Solu Medrol 40 mg IV BID Plan to transition to 50mg PO prednisone tomorrow Neb PRN, cont supplemental 02 Appreciate Pulmonology help May need 2 step exercise prior to discharge Reluctant to take any new meds like long acting inhalers (Family member from use) Trial of Atrovent and Xopenex HFA TID today TOBACCO ABUSE DISORDER : smoking cessation counselling provided refused Nicotine patch CHRONIC LONG QTc SYNDROME : EKG: QTC wnl monitor K /mg level DEPRESSION /ANXIETY DISORDER cont Zoloft PRN Ativan CODE STATUS: FULL CODE DVT PROPHYLAXIS : sub q heparin DISPOSITION : Continue to monitor Medicine follow up with Dr Constance Bass Needs lung CA screening CT - chest and PFTs as outpatient follow-up PROCEDURES; CXR: 1. Advanced emphysema. 2. There is no airspace consolidation to suggest pneumonia. 3. Blunting of the costophrenic sulci could represent trace pleural effusions versus pleural thickening. Pleural thickening is favored. Vital Signs: Date Time Temp Pulse Resp B/P Pulse Ox O2 Delivery O2 Flow Rate FiO2 11/14/16 14:27 36.8 67 18 132/70 94 Nasal Cannula 2.0 11/14/16 08:30 Nasal Cannula 2.0 11/14/16 06:58 36.7 64 18 128/73 93 Nasal Cannula 2.0 11/14/16 00:36 36.7 76 18 127/64 92 3.0 11/14/16 00:00 Nasal Cannula 2.0 11/13/16 20:00 Nasal Cannula 3.0 11/13/16 16:00 Room Air 11/13/16 15:35 36.8 66 18 119/68 96 Nasal Cannula 3.0 Lab Results: Results Past 24 Hours Test 11/14/16 06:22 Range/Units White Blood Count 3.65 4.8-10.8 K/uL Red Blood Count 4.76 4.2-5.4 M/uL Hemoglobin 14.1 12.0-16.0 g/dL Hematocrit 42.6 37-47 % Mean Corpuscular Volume 89.5 80-100 fL Mean Corpuscular Hemoglobin 29.6 25-34 pg Mean Corpuscular Hemoglobin Concent 33.1 32-36 g/dl Platelet Count 170 130-400 K/uL Mean Platelet Volume 9.0 7.4-10.4 fL Neutrophils (%) (Auto) 63.6 % Lymphocytes (%) (Auto) 26.0 % Monocytes (%) (Auto) 10.1 % Eosinophils (%) (Auto) 0.0 % Basophils (%) (Auto) 0.0 % Neutrophils # (Auto) 2.32 1.4-6.5 K/uL Lymphocytes # (Auto) 0.95 1.2-3.4 K/uL Monocytes # (Auto) 0.37 0.11-0.59 K/uL Eosinophils # (Auto) 0.00 0-0.5 K/uL Basophils # (Auto) 0.00 0-0.2 K/uL RDW Standard Deviation 42.2 36.4-46.3 fL RDW Coefficient of Variation 12.8 11.5-14.5 % Immature Granulocyte % (Auto) 0.3 % Immature Granulocyte # (Auto) 0.01 0.00-0.02 K/uL Sodium Level 140 136-145 mmol/L Potassium Level 4.4 3.5-5.1 mmol/L Chloride Level 100 98-107 mmol/L Carbon Dioxide Level 35 21-32 mmol/L Anion Gap 5.0 3-11 mmol/L Blood Urea Nitrogen 5 7-18 mg/dl Creatinine 0.49 0.60-1.20 mg/dl Est Creatinine Clear Calc Drug Dose 76.7 ml/min Estimated GFR () 116.0 Estimated GFR (Non- 100.1 BUN/Creatinine Ratio 10.9 10-20 Random Glucose 87 70-99 mg/dl Calcium Level 8.3 8.5-10.1 mg/dl Magnesium Level 2.2 1.8-2.4 mg/dl
[2016-11-14] MEDS: IPRATROPIUM BROMIDE HFA INHALER INH SCH ×2 (14:49→20:52)
[2016-11-14] MEDS: LEValbuterol HFA 15GM INHALER INH SCH ×2 (14:52→20:53)
[2016-11-14] MEDS: LORAZEPAM 0.5 MG TAB PO PRN (19:52)
[2016-11-14 19:55] VITALS: O2SAT 97
[2016-11-15 00:07] VITALS: BP 109/64; PULSE 68; TEMP 36.9; O2SAT 90
[2016-11-15 07:28] VITALS: BP 133/69; PULSE 56; TEMP 36.8; O2SAT 96
[2016-11-15 08:14] LABS: BASO % 0.3 %; BASO ABS # 0.01 K/uL (0-0.2); COMPLETE YES; HEMATOCRIT 41.6 % (37-47); LYMPH % 23.6 %; LYMPH ABS # 0.83 K/uL (1.2-3.4); MEAN CELL VOLUME 90.8 fL (80-100); MEAN CORPUSCULAR HEMOGLOBIN 29.3 pg (25-34); MEAN CORPUSCULAR HGB CONC 32.2 g/dl (32-36); MEAN PLATELET VOLUME 9.5 fL (7.4-10.4); NEUT % 66.1 %; PLATELET COUNT 179 K/uL (130-400); RED BLOOD COUNT 4.58 M/uL (4.2-5.4); WHITE BLOOD COUNT 3.51 K/uL (4.8-10.8)
[2016-11-15 08:45] LABS: BUN/CREATININE RATIO 13.3 (10-20); CALCIUM 8.7 mg/dl (8.5-10.1); CREATININE 0.42 mg/dl (0.60-1.20); MAGNESIUM 2.3 mg/dl (1.8-2.4)
[2016-11-15] MEDS: HEPARIN SOD 5000 UNIT/0.5 ML CARP SQ SCH ×2 (09:00→21:00)
[2016-11-15] MEDS: IPRATROPIUM BROMIDE HFA INHALER INH SCH ×3 (09:02→21:00)
[2016-11-15] MEDS: OSELTAMIVIR PHOSPHATE 75 MG CAP PO SCH ×2 (09:03→21:08)
[2016-11-15] MEDS: LEValbuterol HFA 15GM INHALER INH SCH ×3 (09:04→21:00)
[2016-11-15] MEDS: SERTRALINE HCL 50 MG TAB PO SCH (09:04)
[2016-11-15] MEDS: METHYLPREDNISOLONE IV 40 MG in SYRINGE 0 ML IV SCH (09:07)
--- NOTE | 2016-11-15 12:41 | PULMONARY PROGRESS NOTE ---
DATE: 11/15/2016 TIME: 12:05 p.m. SUBJECTIVE: The patient is generally feeling better. She has very little cough. She is less short of breath. She has no specific complaints at the present time. Her oxygen saturations have remained marginal. I took her off of oxygen for a few minutes and her saturations were 89%. She states she thinks her saturations are usually about 95% when she goes to her family doctor. OBJECTIVE: GENERAL: The patient appears comfortable. Temperature is 36.8. The patient is slender. BMI is 18.4. ENT: Unremarkable. CARDIAC: Rate is 56 beats per minute. The rhythm is regular. Blood pressure 133/69. Respiratory rate 18 breaths per minute. LUNGS: Lung diaz revealed diminished breath sounds. No active wheezing was heard. Saturations are as noted above. EXTREMITIES: Showed no cyanosis, clubbing or edema. LABORATORY DATA: White blood cell count is still low at 3.51. It is unknown if this is a chronic situation or if it is due to a viral infection such as influenza. Hemoglobin is 13.4. Platelets were 179,000. Electrolytes show sodium 136, potassium 4.0, chloride 96, and bicarbonate 32. BUN was 6 with a creatinine of 0.42. IMPRESSIONS: 1. Influenza A. 2. Chronic obstructive pulmonary disease with exacerbation secondary to #1. 3. Emphysema. 4. Hypoxia. 5. Leukopenia. COMMENTS AND RECOMMENDATIONS: The patient has been very cautious with medicines. She states there is a family history of QT interval prolongation. She is very concerned about the problems that may occur. She believes that she has had this for a period of time. She describes having syncopal episodes at various times during her lifetime that she thinks might have been related to that. She is concerned about the effects of medications on QT interval. She did try Atrovent inhaler and Xopenex inhaler. She apparently did not have any side effects with them. She was uncertain if they made a significant difference or not. She seems receptive to trying the inhalers upon discharge. In the past, they tried to do pulmonary function test on her. She states she had a hard time doing it properly because she had dentures and she could not perform a good seal around the tube when they were doing the test. She is on methylprednisolone that I think certainly could be switched to prednisone and tapered fairly readily. I do not have any objections to her being discharged. She needs a 2-step to determine if she may need home oxygen. The patient requested one of my card because she indicated she might want to be seen for a pulmonary outpatient evaluation. I explained to her that that would be feasible if she so desired, but she should speak to her family physician about that.
--- NOTE | 2016-11-15 14:57 | Progress Note ---
Subjective Date of Service: Nov 15, 2016. Subjective Pt evaluation today including: conversation w/ patient, physical exam, lab review, review of studies, conversation w/ independent marketing consultant, review of inpatient medication list Saw/examined the patient in room 254 She is feeling slightly better today No respiratory distress, no wheezing continues to agree with nebulizer treatments two step performed - requiring 2L O2 continuously Problem List Medical Problems: (1) COPD exacerbation Status: Acute (2) Influenza Status: Acute Review of Systems Constitutional: No chills, No fever Respiratory: + cough, + shortness of breath, + sputum, No dyspnea at rest, No dyspnea on exertion, No hemoptysis, No wheezing Cardiac: No chest pain, No edema, No palpitations Abdomen: No constipation, No diarrhea, No nausea, No pain, No vomiting Female : No dysuria, No urinary frequency Heme: No abnormal bleeding/bruising Medications Current Inpatient Medications Medications (Trade) Dose Ordered Sig/Leroy Route Start Time Stop Time Status Last Admin Dose Admin Acetaminophen (Tylenol Tab) 650 mg Q4H PRN PO 11/12/16 17:15 12/12/16 17:14 11/13/16 09:40 650 MG Al Hydrox/Mg Hydrox/Simethicone (Maalox Max Susp) 15 ml Q4H PRN PO 11/12/16 17:15 12/12/16 17:14 Magnesium Hydroxide (Milk Of Magnesia Susp) 30 ml Q6H PRN PO 11/12/16 17:15 12/12/16 17:14 Polyethylene (Miralax Powder Packet) 17 gm DAILY PRN PO 11/12/16 18:00 12/12/16 17:59 Zolpidem Tartrate (Ambien Tab) 5 mg HSZ PRN PO 11/12/16 17:15 12/12/16 17:14 Heparin Sodium (Porcine) (Heparin Sq 5000 Unit/0.5ml) 5,000 unit Q12H SQ 11/12/16 21:00 12/12/16 20:59 Oseltamivir Phosphate (Tamiflu Cap) 75 mg BID PO 11/12/16 21:00 11/17/16 20:59 11/15/16 09:03 75 MG Dicyclomine HCl (Bentyl Tab) 20 mg QID PRN PO 11/12/16 17:15 12/12/16 17:14 Lorazepam (Ativan Tab) 0.5 mg Q6 PRN PO 11/12/16 17:15 12/12/16 17:14 11/14/16 19:52 0.5 MG Sertraline HCl 50 mg 50 mg DAILY PO 11/13/16 09:00 12/13/16 08:59 11/15/16 09:04 50 MG Promethazine HCl/ Sodium Chloride (Phenergan Inj/ Nss 50ml) 50.5 ml @ 204 mls/hr Q6H PRN IV 11/12/16 17:30 12/12/16 17:29 Ipratropium [place] (Atrovent 0.02% 0.5MG/2.5ML Neb) 0.5 mg Q6R PRN INH 11/12/16 18:00 12/12/16 17:59 11/12/16 19:41 0.5 MG Levalbuterol (Xopenex 1.25MG/ 0.5ML Neb) 1.25 mg Q6R PRN INH 11/12/16 18:00 12/12/16 17:59 11/12/16 19:41 1.25 MG Ipratropium [place] (Atrovent Hfa Inhaler) 2 puffs TID INH 11/14/16 14:00 12/14/16 13:59 11/15/16 14:44 2 PUFFS Levalbuterol (Xopenex Hfa Inhaler) 2 puffs TID INH 11/14/16 14:00 12/14/16 13:59 11/15/16 14:44 2 PUFFS Prednisone (PredniSONE TAB) 50 mg DAILY PO 11/16/16 09:00 12/16/16 08:59 Objective Vital Signs Date Time Temp Pulse Resp B/P Pulse Ox O2 Delivery O2 Flow Rate FiO2 11/15/16 08:00 Nasal Cannula 1.0 11/15/16 07:28 36.8 56 18 133/69 96 2.0 11/15/16 00:07 36.9 68 16 109/64 90 Room Air 11/15/16 00:00 Nasal Cannula 2.0 11/14/16 19:55 97 Room Air 11/14/16 16:08 Nasal Cannula 2.0 Physical Exam General Appearance: no apparent distress, + thin Respiratory/Chest: no respiratory distress, no accessory muscle use, + decreased breath sounds Cardiovascular: regular rate, rhythm, no edema, no murmur Abdomen: normal bowel sounds, non tender, soft Extremities: normal inspection, no pedal edema Neurologic/Psychiatric: no motor/sensory deficits, alert, normal mood/affect Skin: normal color Laboratory Results Last 24 Hours Test 11/15/16 07:35 White Blood Count 3.51 K/uL Red Blood Count 4.58 M/uL Hemoglobin 13.4 g/dL Hematocrit 41.6 % Mean Corpuscular Volume 90.8 fL Mean Corpuscular Hemoglobin 29.3 pg Mean Corpuscular Hemoglobin Concent 32.2 g/dl Platelet Count 179 K/uL Mean Platelet Volume 9.5 fL Neutrophils (%) (Auto) 66.1 % Lymphocytes (%) (Auto) 23.6 % Monocytes (%) (Auto) 10.0 % Eosinophils (%) (Auto) 0.0 % Basophils (%) (Auto) 0.3 % Neutrophils # (Auto) 2.32 K/uL Lymphocytes # (Auto) 0.83 K/uL Monocytes # (Auto) 0.35 K/uL Eosinophils # (Auto) 0.00 K/uL Basophils # (Auto) 0.01 K/uL RDW Standard Deviation 43.2 fL RDW Coefficient of Variation 12.9 % Immature Granulocyte % (Auto) 0.0 % Immature Granulocyte # (Auto) 0.00 K/uL Sodium Level 136 mmol/L Potassium Level 4.0 mmol/L Chloride Level 96 mmol/L Carbon Dioxide Level 32 mmol/L Anion Gap 8.0 mmol/L Blood Urea Nitrogen 6 mg/dl Creatinine 0.42 mg/dl Est Creatinine Clear Calc Drug Dose 89.5 ml/min Estimated GFR () 122.1 Estimated GFR (Non- 105.3 BUN/Creatinine Ratio 13.3 Random Glucose 97 mg/dl Calcium Level 8.7 mg/dl Magnesium Level 2.3 mg/dl Assessment and Plan This is a 66 year old female with PMH of severe COPD, IBS, depression/anxiety presents with worsening shortness of breath Acute COPD exacerbation likely secondary to Influenza A has been treated with IV steroids refusing Spiriva, albuterol, LABA, etc. due to family history of anaphylaxis agreeable to Xarelto-Atrovent nebs/inhalers for today, we will taper Solu-medrol to PO prednisone one week prednisone taper as per pulm two step performed - requiring 2L O2 continuously can be re-evaluated as an outpatient by PCP and pulmonology for the need for O2 Influenza A finish tamiflu course hemodynamically stable Depression/Anxiety continue home medications DVT ppx subq heparin FULL CODE
[2016-11-15 15:37] VITALS: BP 146/81; PULSE 59; TEMP 36.8; O2SAT 97
[2016-11-15] MEDS: ACETAMINOPHEN 325 MG TAB PO PRN (16:14)
[2016-11-15 16:20] VITALS: O2SAT 97
[2016-11-15] MEDS: LORAZEPAM 0.5 MG TAB PO PRN (21:04)
[2016-11-16 00:25] VITALS: BP 133/71; PULSE 63; TEMP 36.8; O2SAT 91
[2016-11-16 06:56] LABS: HEMATOCRIT 43.9 % (37-47); MEAN CORPUSCULAR HEMOGLOBIN 29.4 pg (25-34); PLATELET COUNT 183 K/uL (130-400); RED BLOOD COUNT 4.93 M/uL (4.2-5.4); WHITE BLOOD COUNT 3.84 K/uL (4.8-10.8)
[2016-11-16 07:19] VITALS: BP 121/71; PULSE 60; TEMP 37.1; O2SAT 93
[2016-11-16 07:29] LABS: BUN/CREATININE RATIO 10.7 (10-20); CALCIUM 8.4 mg/dl (8.5-10.1); CREATININE 0.55 mg/dl (0.60-1.20); MAGNESIUM 2.2 mg/dl (1.8-2.4); POTASSIUM 3.7 mmol/L (3.5-5.1)
[2016-11-16 08:17] LABS: BASO % 0.5 %; BASO ABS # 0.02 K/uL (0-0.2); COMPLETE YES; EOS % 1.3 %; LYMPH ABS # 1.92 K/uL (1.2-3.4); MONO % 15.4 %; NEUT % 32.8 %
[2016-11-16] MEDS: LEValbuterol HFA 15GM INHALER INH SCH (08:43)
[2016-11-16] MEDS: IPRATROPIUM BROMIDE HFA INHALER INH SCH (08:43)
[2016-11-16] MEDS: OSELTAMIVIR PHOSPHATE 75 MG CAP PO SCH (08:46)
[2016-11-16] MEDS: HEPARIN SOD 5000 UNIT/0.5 ML CARP SQ SCH (08:47)
--- NOTE | 2016-11-16 08:54 | Progress Note ---
Subjective Date of Service: Nov 16, 2016. Subjective Pt evaluation today including: conversation w/ patient, physical exam, lab review, review of studies, review of inpatient medication list Saw/examined the patient in room 254 Doing well, eager to go home, no shortness of breath or chest pain Problem List Medical Problems: (1) COPD exacerbation Status: Acute (2) Influenza Status: Acute Review of Systems Constitutional: No chills, No fever, No weakness Respiratory: + cough, + sputum, No dyspnea at rest, No dyspnea on exertion, No hemoptysis, No shortness of breath, No wheezing Cardiac: No chest pain, No edema, No palpitations Abdomen: No constipation, No diarrhea, No nausea, No pain, No vomiting Heme: No abnormal bleeding/bruising Medications Current Inpatient Medications Medications (Trade) Dose Ordered Sig/Leroy Route Start Time Stop Time Status Last Admin Dose Admin Acetaminophen (Tylenol Tab) 650 mg Q4H PRN PO 11/12/16 17:15 12/12/16 17:14 11/15/16 16:14 650 MG Al Hydrox/Mg Hydrox/Simethicone (Maalox Max Susp) 15 ml Q4H PRN PO 11/12/16 17:15 12/12/16 17:14 Magnesium Hydroxide (Milk Of Magnesia Susp) 30 ml Q6H PRN PO 11/12/16 17:15 12/12/16 17:14 Polyethylene (Miralax Powder Packet) 17 gm DAILY PRN PO 11/12/16 18:00 12/12/16 17:59 Zolpidem Tartrate (Ambien Tab) 5 mg HSZ PRN PO 11/12/16 17:15 12/12/16 17:14 Heparin Sodium (Porcine) (Heparin Sq 5000 Unit/0.5ml) 5,000 unit Q12H SQ 11/12/16 21:00 12/12/16 20:59 Oseltamivir Phosphate (Tamiflu Cap) 75 mg BID PO 11/12/16 21:00 11/17/16 20:59 11/16/16 08:46 75 MG Dicyclomine HCl (Bentyl Tab) 20 mg QID PRN PO 11/12/16 17:15 12/12/16 17:14 Lorazepam (Ativan Tab) 0.5 mg Q6 PRN PO 11/12/16 17:15 12/12/16 17:14 3/7/17 21:04 0.5 MG Sertraline HCl 50 mg 50 mg DAILY PO 11/13/16 09:00 12/13/16 08:59 11/15/16 09:04 50 MG Promethazine HCl/ Sodium Chloride (Phenergan Inj/ Nss 50ml) 50.5 ml @ 204 mls/hr Q6H PRN IV 11/12/16 17:30 12/12/16 17:29 Ipratropium [place] (Atrovent 0.02% 0.5MG/2.5ML Neb) 0.5 mg Q6R PRN INH 11/12/16 18:00 12/12/16 17:59 11/12/16 19:41 0.5 MG Levalbuterol (Xopenex 1.25MG/ 0.5ML Neb) 1.25 mg Q6R PRN INH 11/12/16 18:00 12/12/16 17:59 11/12/16 19:41 1.25 MG Ipratropium [place] (Atrovent Hfa Inhaler) 2 puffs TID INH 11/14/16 14:00 12/14/16 13:59 11/16/16 08:43 2 PUFFS Levalbuterol (Xopenex Hfa Inhaler) 2 puffs TID INH 11/14/16 14:00 12/14/16 13:59 11/16/16 08:43 2 PUFFS Prednisone (PredniSONE TAB) 50 mg DAILY PO 11/16/16 09:00 12/16/16 08:59 11/16/16 08:44 50 MG Objective Vital Signs Date Time Temp Pulse Resp B/P Pulse Ox O2 Delivery O2 Flow Rate FiO2 11/16/16 07:19 37.1 60 18 121/71 93 Nasal Cannula 2.0 11/16/16 00:25 36.8 63 16 133/71 91 2.0 11/16/16 00:00 Nasal Cannula 2.0 11/15/16 16:20 97 Nasal Cannula 2.0 11/15/16 15:37 36.8 59 18 146/81 97 Nasal Cannula 2.0 Physical Exam General Appearance: no apparent distress, + thin Respiratory/Chest: chest non-tender, lungs clear, normal breath sounds, no respiratory distress, no accessory muscle use Cardiovascular: regular rate, rhythm, no edema, no murmur Extremities: normal inspection, no pedal edema Skin: normal color Laboratory Results Last 24 Hours Test 11/16/16 06:35 White Blood Count 3.84 K/uL Red Blood Count 4.93 M/uL Hemoglobin 14.5 g/dL Hematocrit 43.9 % Mean Corpuscular Volume 89.0 fL Mean Corpuscular Hemoglobin 29.4 pg Mean Corpuscular Hemoglobin Concent 33.0 g/dl Platelet Count 183 K/uL Mean Platelet Volume 9.0 fL Neutrophils (%) (Auto) 32.8 % Lymphocytes (%) (Auto) 50.0 % Monocytes (%) (Auto) 15.4 % Eosinophils (%) (Auto) 1.3 % Basophils (%) (Auto) 0.5 % Neutrophils # (Auto) 1.26 K/uL Lymphocytes # (Auto) 1.92 K/uL Monocytes # (Auto) 0.59 K/uL Eosinophils # (Auto) 0.05 K/uL Basophils # (Auto) 0.02 K/uL RDW Standard Deviation 41.5 fL RDW Coefficient of Variation 12.7 % Immature Granulocyte % (Auto) 0.0 % Immature Granulocyte # (Auto) 0.00 K/uL Sodium Level 138 mmol/L Potassium Level 3.7 mmol/L Chloride Level 97 mmol/L Carbon Dioxide Level 34 mmol/L Anion Gap 7.0 mmol/L Blood Urea Nitrogen 6 mg/dl Creatinine 0.55 mg/dl Est Creatinine Clear Calc Drug Dose 68.3 ml/min Estimated GFR () 111.7 Estimated GFR (Non- 96.4 BUN/Creatinine Ratio 10.7 Random Glucose 79 mg/dl Calcium Level 8.4 mg/dl Magnesium Level 2.2 mg/dl Assessment and Plan This is a 66 year old female with PMH of severe COPD, IBS, depression/anxiety presents with worsening shortness of breath Acute COPD exacerbation 11/16 secondary to Influenza A doing well today currently on 2L of oxygen via nasal cannula two step performed yesterday - requiring O2 for home script written - to receive oxygen tank later today will d/c home with prednisone taper 11/15 likely secondary to Influenza A has been treated with IV steroids refusing Spiriva, albuterol, LABA, etc. due to family history of anaphylaxis agreeable to Xarelto-Atrovent nebs/inhalers for today, we will taper Solu-medrol to PO prednisone one week prednisone taper as per pulm two step performed - requiring 2L O2 continuously can be re-evaluated as an outpatient by PCP and pulmonology for the need for O2 Influenza A finish tamiflu course (last dose on 11/16) hemodynamically stable Depression/Anxiety continue home medications DVT ppx subq heparin FULL CODE Discharge planning: home
[2016-11-16] MEDS: SERTRALINE HCL 50 MG TAB PO SCH (09:00)
[2016-11-16] MEDS ORDERED: PRED10TA PO (09:01)
[2016-11-16] MEDS ORDERED: LEVA45AE INH (09:01)
[2016-11-16] MEDS ORDERED: ATRIN INH (09:01)
[2016-11-16] MEDS ORDERED: OXGN (09:03)
--- NOTE | 2016-11-16 09:07 | Discharge Instructions ---
Discharge Instructions Date of Service Nov 16, 2016. Admission Reason for Admission: Hypoxia Infuenza A Discharge Discharge Diagnosis / Problem: Hypoxia, Influenza A, COPD exacerbation Discharge Goals Goal(s): Decrease discomfort, Improve function, Diagnostic testing, Therapeutic intervention Activity Recommendations Activity Limitations: resume your previous activity . Instructions / Follow-Up Instructions / Follow-Up Please see your primary care physician, Dr. Bass, on November 22 @ 10: 30AM You should follow-up with pulmonology, Dr. Tuttle, as an outpatient You will be sent home with oxygen 2L via nasal cannula continuously You will be sent home with a prednisone taper (please take 5 tablets on 11/17, 4 tablets on 11/18, 3 tablets on 11/19, 2 tablets on 11/20, 1 tablet on 11/21, 11/22, ) You will be sent home with Xopenex and Atrovent inhalers - please use as needed Last dose of Tamiflu is on 11/16/16 Current Hospital Diet Patient's current hospital diet: Regular Diet, Low Lactose Diet Discharge Diet Recommended Diet: Regular Diet Pending Studies Studies pending at discharge: no Medical Emergencies . Who to Call and When: Medical Emergencies: If at any time you feel your situation is an emergency, please call 911 immediately. . Non-Emergent Contact Non-Emergency issues call your: Primary Care Provider . . "Provider Documentation" section prepared by Lida Cabezas. VTE Core Measure Inpt VTE Proph given/why not?: Unfractionated heparin SQ
--- NOTE | 2016-11-16 09:11 | Discharge Summary ---
Discharge Summary Date of Service Nov 16, 2016. Discharge Summary Admission Date: Nov 12, 2016 at 17:10 Discharge Date: Nov 16, 2016 Discharge Disposition: Home Principal Diagnosis: Influenza A COPD exacerbation Medication Reconciliation New Medications: Oxygen (Oxygen) Gas 2 LITERS NA CONTINOUS for 30 Days Ipratropium [place] (Atrovent Hfa) 200 Puffs/3400 Mcg Aers 2 PUFFS INH TID PRN for Shortness of Breath for 30 Days, #1 INHALER Levalbuterol Tartrate (Levalbuterol Tartrate Hfa) 45 Mcg/Act Aer 2 PUFFS INH TID PRN for Shortness of Breath for 30 Days, #1 INHALER Prednisone Tab (Prednisone) 10 Mg Tab 10 MG PO DAILY for 7 Days, #17 TAB Continued Medications: Dicyclomine Hcl (Bentyl) 20 Mg Tab 1 TAB PO QID PRN for Pain for 30 Days Lorazepam (Ativan) 0.5 Mg Tab 0.5 MG PO Q6HR PRN Take as needed for anxiety. Sertraline (Zoloft) 50 Mg Tab 50 MG PO DAILY Admission Information HPI (per Admitting provider): pt reports of having cough . SOB , low grade fever , post nasal drip , sinus congestion for past 3 days denies of any sick contact , did not had Flu shot this year ( " I never take shots" ) experiencing Orthopnea -unable to lie flat -due to profuse post nasal drip very poor appetite last night SOB got worse , unable to take deep breath on arrival to ED she was found tachycardic, Hypoxic , SPO2 78% in RA , improved after 3 L 02 via nasal canula refused to have Neb tx -worried about side effect ( Father of anaphylaxis , cardiac shock with Albuterol neb tx ) Cxray -severe emphysema ,no obvious infiltrate afebrile Influenza A + ve Physical Exam (per Admitting): General Appearance: + cachetic Head: normocephalic, atraumatic Eyes: normal inspection Respiratory/Chest: + respiratory distress, + decreased breath sounds, + wheezing Cardiovascular: + tachycardia Abdomen/GI: non tender, soft Extremities/Musculoskelatal: normal inspection, no calf tenderness, normal capillary refill, no pedal edema, normal range of motion Neurologic/Psych: no motor/sensory deficits, alert, normal mood/affect, oriented x 3 Hospital Course This is a 66 year old female with PMH of severe COPD, IBS, depression/anxiety presents with worsening shortness of breath Acute COPD exacerbation 11/16 secondary to Influenza A doing well today currently on 2L of oxygen via nasal cannula two step performed yesterday - requiring O2 for home script written - to receive oxygen tank later today will d/c home with prednisone taper 11/15 likely secondary to Influenza A has been treated with IV steroids refusing Spiriva, albuterol, LABA, etc. due to family history of anaphylaxis agreeable to Xarelto-Atrovent nebs/inhalers for today, we will taper Solu-medrol to PO prednisone one week prednisone taper as per pulm two step performed - requiring 2L O2 continuously can be re-evaluated as an outpatient by PCP and pulmonology for the need for O2 Influenza A finish tamiflu course (last dose on 11/16) hemodynamically stable Depression/Anxiety continue home medications DVT ppx subq heparin FULL CODE Discharge planning: home Total time spent on discharge = 35 This includes examination of the patient, discharge planning, medication reconciliation, and communication with other providers. Discharge Instructions Please see your primary care physician, Dr. Bass, on November 22 @ 10: 30AM You should follow-up with pulmonology, Dr. Tuttle, as an outpatient You will be sent home with oxygen 2L via nasal cannula continuously You will be sent home with a prednisone taper (please take 5 tablets on 11/17, 4 tablets on 11/18, 3 tablets on 11/19, 2 tablets on 11/20, 1 tablet on 11/21, 11/22, ) You will be sent home with Xopenex and Atrovent inhalers - please use as needed Last dose of Tamiflu is on 11/16/16
[2016-11-16 09:29] VITALS: BP 121/71; PULSE 60; TEMP 37.1; O2SAT 93
[2016-11-16] MEDS ORDERED: NURSING VERBAL MED ORDER ONE (09:45)
[2016-11-16] MEDS ORDERED: OSELTAMIVIR PHOSPHATE 75 MG CAP PO SCH (10:00)
== END 2016-11-16 11:00 | disposition home or self-care (01) | DRG 152 ==
LOC: ENRESERVTM → ENRESERVDT → C.EDB 15:22 → C.MS2W 17:10 → UNDOADMIN 17:10
PROVIDERS: ADMIT Hospitalist; ATTEND Family Medicine
DX: J11.1 Influenza due to unidentified influenza virus with other respiratory manifestations (principal); J96.01 Acute respiratory failure with hypoxia; J44.1 Chronic obstructive pulmonary disease with (acute) exacerbation; F32.9 Major depressive disorder, single episode, unspecified; F41.9 Anxiety disorder, unspecified; D70.9 Neutropenia, unspecified; F17.210 Nicotine dependence, cigarettes, uncomplicated; K21.9 Gastro-esophageal reflux disease without esophagitis; I45.81 Long QT syndrome; E73.9 Lactose intolerance, unspecified; H90.5 Unspecified sensorineural hearing loss; Z87.898 Personal history of other specified conditions; Z79.899 Other long term (current) drug therapy; Z53.29 Procedure and treatment not carried out because of patient's decision for other reasons

== ENCOUNTER 2024-11-18 09:09 | Observation (INO) ==
--- NOTE | 2024-11-18 09:28 | Emergency Department Note ---
Impression & Plan Acute exacerbation of chronic obstructive pulmonary disease, Acute respiratory failure with hypoxia and hypercarbia, Chest pain, Shortness of breath ED Provider Note NAME: IQRA MONZON AGE: 74 SEX: F : 1950 ARRIVES VIA: Walk-In INFORMANT: Patient, ED PROVIDER(S): Pj Glass MD CHIEF COMPLAINT: Chest pain MEDICAL DECISION MAKING: Patient presents due to concern for chest pain. IV was established and blood work is obtained. EKG without significant changes from prior. Patient is very limited with what she can take with regard to COPD and this could be more of a presentation of that although the patient states that this feels different. Patient's blood work shows a white count of 2.2 with a normal hemoglobin and platelet count. The patient's kidney function is unremarkable. Hyponatremia at 130. The patient did have a VBG and a repeat troponin ordered and troponin negative. I do believe the patient may benefit from inpatient treatment. Escalation of care was considered and offered. Did discuss that the patient may benefit from inpatient treatment or further discuss medication management options with regard to her COPD as the patient has been hesitant to try new medications given the patient's significant prior allergy history as and concerns for intermittent heart block per review of prior records. VBG with a pH of 735 with pCO2 72. Fairly well compensated. Repeat troponin is negative. BioFire negative. I did speak the on-call hospital service Dr. Muller and the patient was admitted to the medicine service. Discussion w/ other healthcare providers: Dr. Muller inpatient medicine service Prior /Outside records reviewed: I reviewed part of pulmonology note from Dr. Lyn from January 2022. Known history of COPD patient with known history of chronic hypoxia COPD on 2 L at all times. Differential diagnosis: Cardiac ischemia, aortic dissection, pulmonary embolism, pneumothorax, pneumonia, pericarditis, myocarditis, GERD, cholecystitis, pancreatitis, musculoskeletal, as well as other pathologies were considered. Diagnostics, as interpreted by me: ECG: Normal sinus rhythm, rate of 68, normal intervals, normal axis, Q waves noted anteriorly with slight elevation in V3. EKG morphology looks grossly unchanged from comparison April 17, 2023. Cardiac monitoring: An order was placed for continuous cardiac monitoring. The monitor shows a rate of 72 with sinus rhythm. Patient was placed on pulse oximetry Medical decision rules: Wells score Imaging studies: I informally interpreted the patient's chest x-ray does not show obvious pneumonia or pneumothorax with formal report to follow. HPI: Patient presents due to concern for bandlike chest pain over the lower chest that woke her up from sleep of the chest. The patient states that she gets a noncontrast CT yearly that is low-dose in nature for follow-up for her COPD and pulmonary nodules. Patient states that she currently does not have that chest discomfort. Patient denies any exertional component. Mild nausea but no vomiting or diaphoresis. No leg swelling or calf pain. Patient denies a prior history of DVT or PE. No recent surgeries procedures or hospitalizations no recent long car plane travel. Patient states that she does suffer from QT prolongation and will pass out whenever she takes any medications and this is limited with what she can take for her COPD. Patient denies any cough or fever. Patient states that this chest discomfort feels different from her COPD. Patient does wear 2 L of oxygen at all times. PAST MEDICAL HISTORY: See Below PAST SURGICAL HISTORY: See Below SOCIAL HISTORY: See Below HOME MEDICATIONS: See Below ALLERGIES: See Below VITALS: See Below PHYSICAL EXAMINATION: GENERAL: NAD, non-toxic. Wearing glasses. EYE EXAM: Normal conjunctiva. PERRL, no anisocoria and EOM's grossly intact w/o pain. OROPHARYNX: Moist mucus membranes, grossly normal dentition. NECK: Trachea midline, no stridor. Supple, no nuchal rigidity, no adenopathy, non-tender. No signs of meningismus. FROM of the neck with good chin to chest and neck extension. LUNGS: Diminished breath sounds throughout. Normal chest wall mechanics. HEART: NSR, no MRG. ABDOMEN: Abdomen soft, non-tender, no masses, no rebound or guarding. BACK: No CVA TTP. SKIN: No rashes and no bruising. UPPER EXTREMITIES: Upper extremities are grossly normal. LOWER EXTREMITIES: Grossly normal, no edema. Negative Homans' sign bilaterally. NEURO EXAM: A&O x3, cranial nerves II-XII grossly intact, normal speech, moves all 4 extremities. Past Med/Surg History Problem List (Updated 11/18/24 @ 17:34 by Pj Glass MD) Shortness of breath (Acute) Chest pain (Acute) Acute respiratory failure with hypoxia and hypercarbia (Acute) Acute exacerbation of chronic obstructive pulmonary disease (Acute) Hypercapnic respiratory failure Pulmonary nodule COPD (chronic obstructive pulmonary disease) Colon cancer screening Encounter for pre-operative examination COPD exacerbation (Acute) Hypoxia Influenza (Acute) Influenza A Sensorineural hearing loss (Chronic Unknown) Bronchitis (Chronic) Pneumonia (Chronic) Urinary problem (Chronic) Medical History IBS (irritable bowel syndrome) On home oxygen therapy 1.5 LITERS ----- 03/04 Chronic obstructive pulmonary disease Hx of bronchitis Surgical History History of open reduction and internal fixation (ORIF) procedure left radius fx repair--hardware in place History of colonoscopy History of thumb surgery History of dental surgery 2 POST FOR DENTURES History of tonsillectomy and adenoidectomy Hx of section X1 Hx of carpal tunnel repair RIGHT AND LEFT Hx of cataract surgery bilt Family History Daughter Family history of reaction to anesthesia gets nauseated Uncle Family hx of colon cancer Uncle Family hx of colon cancer Other No significant family history Social History Smoking Status: Former smoker Tobacco Type: Cigarettes Smoking End Date: 2018; Second Hand Exposure: No; Do You Dip or Chew Tobacco: No; Tobacco Cessation Education Requested by Patient: No Hx Alcohol Use: No Hx Substance Use: Yes Last Used Substance Other:: 4 months ago Substance Use Type Other:: gummivalentín Preferred Language: Uzbek Communication Ability: Effective Disk Operator Required: No Beliefs That Will Affect Care: None Current Living Situation: Family Current Living Situation Comment: son daughter and inlaws Other Information That Helps Us Care for You: No Feels Safe at Home: Yes Safety Concerns: Feels Safe At This Time Assistive Devices: Denture - Upper, Glasses and Oxygen - Continuous Assistive Devices Comment: partial lower Allergies Allergies Allergy/AdvReac Type Severity Reaction Status Date / Time amitriptyline Allergy Severe PASSED OUT Verified 11/18/24 11:53 Milk Containing Products Allergy Severe difficulty Verified 11/18/24 13:16 (Dairy) breathing 24-36 hours after ingestion ciprofloxacin Allergy Intermediate HIVES Verified 11/18/24 11:53 diphenhydramine Allergy Intermediate "gets me Verified 11/18/24 11:53 too hyper" metronidazole Allergy Intermediate IRREGULAR Verified 11/18/24 11:53 HEART BEAT nitrofurantoin Allergy Intermediate DIZZY, Verified 11/18/24 11:53 IREGULAR HEARTBEAT propoxyphene Allergy Intermediate SPINNING, Verified 11/18/24 11:53 HALLUCINATIONS Quinolones Allergy Intermediate Hives Verified 11/18/24 11:53 epinephrine Allergy Mild heart Verified 11/18/24 11:53 beats fast and has twitches latex Allergy Mild thrush Verified 11/18/24 11:53 Methacrylate Analogues Allergy Mild THRUSH Verified 11/18/24 13:16 bacitracin Allergy Unknown Unknown Verified 11/18/24 11:53 cephalexin Allergy Unknown UNKNOWN Verified 11/18/24 11:53 Cephalosporins Allergy Unknown Unknown Verified 11/18/24 11:53 Cipro Allergy Unknown HIVES Verified 11/12/16 15:36 codeine Allergy Unknown Unknown Verified 11/18/24 11:53 Macrolide Antibiotics Allergy Unknown UNKNOWN Verified 11/18/24 11:53 neomycin Allergy Unknown Unknown Verified 11/18/24 11:53 polymyxin B Allergy Unknown Unknown Verified 11/18/24 11:53 Sulfa (Sulfonamide Allergy Unknown Unknown Verified 11/18/24 11:53 Antibiotics) tetracycline Allergy Unknown unknown Verified 11/18/24 11:53 Bactrim AdvReac Intermediate palpitation Verified 11/21/11 10:38 s morphine AdvReac Intermediate "affects Verified 11/18/24 11:53 BP" sulfamethoxazole AdvReac Intermediate palpitation Verified 11/18/24 11:53 s trimethoprim AdvReac Intermediate palpitation Verified 11/18/24 11:53 s erythromycin base AdvReac Mild agitation Verified 11/18/24 11:53 Home Meds Home Medications Medication Instructions Recorded Confirmed sertraline 50 mg tablet (Zoloft) 50 mg PO QAM 07/02/19 11/18/24 clobetasol 0.05 % scalp solution 1 applic topical BID PRN flare 11/18/24 11/18/24 clobetasol 0.05 % topical ointment 1 applic topical BID Rash on legs 11/18/24 11/18/24 lorazepam 0.5 mg tablet 0.5 mg PO Q8H PRN Anxiety 11/18/24 11/18/24 prednisone 1 mg tablet 1 mg PO QAM 11/18/24 11/18/24 Results & Data (ED) Vital Signs Vital Signs - 24 hr 11/18/24 09:13 11/18/24 09:33 11/18/24 09:40 Temperature 36.0 C L Temperature Source Temporal Artery Scan Pulse Rate 69 Pulse Rate from SpO2 Sensor Respiratory Rate 24 Respiratory Effort / Characteristics Spontaneous Short of Breath Blood Pressure 141/70 H 156/77 H Blood Pressure Mean 93 111 Pulse Oximetry 91 98 Oxygen Delivery Method Nasal Cannula Nasal Cannula Oxygen Flow Rate 2 2 Sepsis Recent Fever Within 48 Hours No Sepsis New/Unexplained Change in Mental Status N/A Sepsis Action Taken by Nursing No Action Required 11/18/24 09:40 11/18/24 10:00 11/18/24 10:00 Temperature Temperature Source Pulse Rate 70 Pulse Rate from SpO2 Sensor Respiratory Rate Respiratory Effort / Characteristics Blood Pressure 153/79 H 153/79 H Blood Pressure Mean 114 114 Pulse Oximetry Oxygen Delivery Method Oxygen Flow Rate Sepsis Recent Fever Within 48 Hours Sepsis New/Unexplained Change in Mental Status Sepsis Action Taken by Nursing 11/18/24 10:03 11/18/24 10:30 11/18/24 10:30 Temperature Temperature Source Pulse Rate 71 70 Pulse Rate from SpO2 Sensor 71 Respiratory Rate 22 19 Respiratory Effort / Characteristics Blood Pressure 149/81 H Blood Pressure Mean 113 Pulse Oximetry 92 Oxygen Delivery Method Oxygen Flow Rate Sepsis Recent Fever Within 48 Hours Sepsis New/Unexplained Change in Mental Status Sepsis Action Taken by Nursing 11/18/24 10:39 11/18/24 11:00 11/18/24 11:00 Temperature Temperature Source Pulse Rate 71 Pulse Rate from SpO2 Sensor 70 Respiratory Rate 20 Respiratory Effort / Characteristics Blood Pressure 141/85 H 141/85 H Blood Pressure Mean 117 117 Pulse Oximetry 95 Oxygen Delivery Method Oxygen Flow Rate Sepsis Recent Fever Within 48 Hours Sepsis New/Unexplained Change in Mental Status Sepsis Action Taken by Nursing 11/18/24 11:00 11/18/24 11:18 11/18/24 11:30 Temperature Temperature Source Pulse Rate 69 Pulse Rate from SpO2 Sensor 68 Respiratory Rate 23 Respiratory Effort / Characteristics Blood Pressure 141/85 H 159/78 H Blood Pressure Mean 117 107 Pulse Oximetry 93 Oxygen Delivery Method Oxygen Flow Rate Sepsis Recent Fever Within 48 Hours Sepsis New/Unexplained Change in Mental Status Sepsis Action Taken by Nursing 11/18/24 11:30 11/18/24 11:30 11/18/24 11:54 Temperature Temperature Source Pulse Rate 68 75 Pulse Rate from SpO2 Sensor 67 80 Respiratory Rate 19 24 Respiratory Effort / Characteristics Blood Pressure 159/78 H Blood Pressure Mean 107 Pulse Oximetry 92 89 L Oxygen Delivery Method Oxygen Flow Rate Sepsis Recent Fever Within 48 Hours Sepsis New/Unexplained Change in Mental Status Sepsis Action Taken by Nursing 11/18/24 12:00 11/18/24 12:00 11/18/24 12:00 Temperature Temperature Source Pulse Rate Pulse Rate from SpO2 Sensor Respiratory Rate Respiratory Effort / Characteristics Blood Pressure 156/79 H 156/79 H 156/79 H Blood Pressure Mean 102 102 102 Pulse Oximetry Oxygen Delivery Method Oxygen Flow Rate Sepsis Recent Fever Within 48 Hours Sepsis New/Unexplained Change in Mental Status Sepsis Action Taken by Prison Medications Current Medication List: was personally reviewed by me Laboratory Data Attestation: I reviewed the patient's lab results. 11/18/24 09:35 11/18/24 09:35 Lab Results 11/18/24 11/18/24 11/18/24 Range/Units 09:35 11:00 11:33 WBC 2.24 L (4.8-10.8) K/ul RBC 4.54 (4.20-5.40) M/uL Hgb 12.4 (12.0-16.0) g/dl Hct 39.6 (37.0-47.0) % MCV 87.2 (80.0-100.0) fL MCH 27.3 (25.0-34.0) pg MCHC 31.3 L (32.0-36.0) g/dL RDW Std Deviation 41.0 (36.4-46.3) fL RDW Coeff of Porfirio 13.0 (11.5-14.5) % Plt Count 206 (130-400) K/uL MPV 9.6 (9.4-12.4) fL Immature Gran % (Auto) 0.4 % Neut % (Auto) 69.2 % Lymph % (Auto) 17.9 % [place] % (Auto) 8.5 % Eos % (Auto) 2.7 % Baso % (Auto) 1.3 % Neut # (Auto) 1.55 (1.40-6.50) K/uL Lymph # (Auto) 0.40 L (1.20-3.40) K/uL [place] # (Auto) 0.19 (0.11-0.59) K/uL Eos # (Auto) 0.06 (0.00-0.50) K/uL Baso # (Auto) 0.03 (0.00-0.20) K/uL Immature Gran # (Auto) 0.01 (0.01-0.20) K/uL PT 11.0 (9.0-12.0) Seconds INR 1.0 (0.9-1.1) APTT 31 (21-31) Seconds PTT Ratio 1.2 D-Dimer 1180 H* (0-500) ug/L FEU VBG pH 7.35 L (7.36-7.41) VBG pCO2 72 H (38-50) mmHg VBG pO2 34 mmHg VBG HCO3 40 mmol/L VBG O2 Saturation 61.6 % VBG Base Excess 11.0 mEq/L Sodium 130 L (136-145) mmol/L Potassium 3.9 (3.5-5.1) mmol/L Chloride 91 L (98-107) mmol/L Carbon Dioxide 39 H (21-32) mmol/L Anion Gap 0 L (3-11) BUN 5 L (6-23) mg/dl Creatinine 0.37 L (0.6-1.2) mg/dl Est Cr Clr Drug Dosing 94.3 ml/min eGFR 104.45 BUN/Creatinine Ratio 13.5 (10-20) Glucose 99 (70-99(Fasting)) mg/dl Calcium 9.5 (8.6-10.3) mg/dl Total Bilirubin 0.4 (0.2-1.0) mg/dl AST 31 (13-39) U/L ALT 15 (7-52) U/L Alkaline Phosphatase 44 (34-104) U/L Total Creatine Kinase 61 (26-192) U/L Troponin I High Sens 5.5 4.1 (0-14) pg/ml Total Protein 7.5 (6.0-8.3) gm/dl Albumin 4.2 (3.4-5.0) gm/dl Globulin 3.3 (2.5-4.0) gm/dl Albumin/Globulin Ratio 1.3 (0.9-2) Lipase 30 (11-82) U/L Adenovirus (PCR) Not Detected (NotDetected) B. pertussis DNA (PCR) Not Detected (NotDetected) B.parapertussis DNA PCR Not Detected (NotDetected) C. pneumoniae DNA (PCR) Not Detected (NotDetected) Coronavirus OC43 (PCR) Not Detected (NotDetected) Coronavirus HKU1 (PCR) Not Detected (NotDetected) Coronavirus 229E (PCR) Not Detected (NotDetected) SARS-CoV-2 (PCR) Not Detected (NotDetected) Coronavirus NL63 (PCR) Not Detected (NotDetected) Human Metapneumovir PCR Not Detected (NotDetected) Influenza Type A (PCR) Not Detected (NotDetected) Influenza Type B (PCR) Not Detected (NotDetected) M. pneumoniae (PCR) Not Detected (NotDetected) Parainfluenza 1 (PCR) Not Detected (NotDetected) Parainfluenza 2 (PCR) Not Detected (NotDetected) Parainfluenza 3 (PCR) Not Detected (NotDetected) Parainfluenza 4 (PCR) Not Detected (NotDetected) RSV (PCR) Not Detected (NotDetected) Entero/Rhino (PCR) Not Detected (NotDetected) Administered Medications Amoxicillin/Clavulanate Potassium (Amoxicillin/Clavulanate 875 Mg Tab) 1 tab PO BIDM [facility]; Protocol Stop: 11/28/24 12:59 Last Admin: 11/18/24 13:09 Dose: 1 tab Documented By: CATALINA Aspirin (Aspirin 81 Mg Chew) 81 mg PO DAILY [facility] Stop: 12/18/24 12:59 Last Admin: 11/18/24 13:09 Dose: Not Given Documented By: CATALINA Discontinued Medications Magnesium Sulfate/Dextrose (Magnesium Sulfate / D5w) 1 gm in 100 mls @ 200 mls/hr IV NOW STA Stop: 11/18/24 10:16 Last Infusion: 11/18/24 11:06 Dose: Infused Documented By: Admin: 11/18/24 10:06 Dose: 200 mls/hr Documented By: CATALINA Ioversol (Optiray 320 125ml) 120 ml IV ONCE ONE Stop: 11/18/24 15:11 Last Admin: 11/18/24 15:10 Dose: 120 ml Documented By: VY Methylprednisolone (Methylprednisolone 125 Mg/2 Ml Vial) 125 mg IV NOW STA Stop: 11/18/24 09:46 Last Admin: 11/18/24 10:03 Dose: 125 mg Documented By: CATALINA Imaging Data Radiologist's Impression: Chest X-Ray 11/18/24 09:45 XR chest 1V portable CLINICAL HISTORY: Chest pain, nonspecific COMPARISON STUDY: 04/17/2023 FINDINGS: Single view chest is unchanged demonstrating no acute cardiopulmonary process. Flattened diaphragms and mild bibasilar fibrotic changes are redemonstrated. There is no focal airspace opacity or pleural effusion. There is no pneumothorax. The heart and pulmonary vascularity are unremarkable. IMPRESSION: Stable exam; no acute process ACT 112: Negative or not required by law. Electronically signed by: Ana Porras M.D. 11/18/2024 10:32 AM Discharge Plan Visit Data Chief Complaint: Cardiac Assessment Stated Complaint: TIGHT BAND AROUND CHEST, HEART BURN, GAS ED Provider: Pj Glass Discharge Problem: Acute exacerbation of chronic obstructive pulmonary disease, Acute respiratory failure with hypoxia and hypercarbia, Chest pain, Shortness of breath Patient Disposition: Admitted As Inpatient Discharge Instructions Interventions: ED Discharge Assessment Last Done: 11/18/24 14:35 Discharge Problem: Chest pain Qualifiers: Chest pain type: unspecified Qualified Code(s): R07.9 - Chest pain, unspecified
[2024-11-18] MEDS: methylPREDNISolone 125 MG/2 ML VIAL IV STA (10:03)
[2024-11-18] MEDS: MAGNESIUM SULFATE / D5W 1 GM/100 ML BAG IV STA (10:06)
[2024-11-18 10:19] LABS: Basophils # (auto) 0.03 K/uL (0.00-0.20); Basophils % (auto) 1.3 %; Eosinophils # (auto) 0.06 K/uL (0.00-0.50); Eosinophils % (auto) 2.7 %; Hematocrit (blood only) 39.6 % (37.0-47.0); Hemoglobin 12.4 g/dl (12.0-16.0); Immature Granulocytes # (auto) 0.01 K/uL (0.01-0.20); Immature Granulocytes % (auto) 0.4 %; Lymphocytes % (auto) 17.9 %; Mean Corpuscular Hemoglobin 27.3 pg (25.0-34.0); Mean Corpuscular Hgb Conc 31.3 g/dL (32.0-36.0); Mean Corpuscular Volume 87.2 fL (80.0-100.0); Mean Platelet Volume 9.6 fL (9.4-12.4); Monocytes # (auto) 0.19 K/uL (0.11-0.59); Monocytes % (auto) 8.5 %; Neutrophils # (auto) 1.55 K/uL (1.40-6.50); Neutrophils % (auto) 69.2 %; Platelet Count 206 K/uL (130-400); Red Blood Count 4.54 M/uL (4.20-5.40); White Blood Count 2.24 K/ul (4.8-10.8)
--- OUTSIDE RECORDS SUMMARY | 2024-11-18 10:30 | External Medical Summary ---
Author Name Unknown Address Unknown Organization [facility] [address] [place] [address] Laboratory Report Ordering Provider Test Date Status MIROSLAVA LARA 10/23/2024 11:28:23 Final Observation Date Value Abnormality Reference (Units ) Status SYNC LEUKOCYTES IN BLOOD BY AUTOMATED COUNT 10/23/2024 11:28:23 2.36 Below low normal 4.00-10.80 (K/uL) Final Segs 10/23/2024 11:28:23 64.9 40.0-75.0 (%) Final Lymphs % 10/23/2024 11:28:23 21.6 18.0-42.0 (%) Final Monos 10/23/2024 11:28:23 9.7 1.0-11.0 (%) Final Eosinophils 10/23/2024 11:28:23 3.0 0.0-6.0 (%) Final Basos 10/23/2024 11:28:23 0.8 0.0-2.0 (%) Final Absolute Segs 10/23/2024 11:28:23 1.53 Below low normal 1.80-7.70 (K/uL) Final Lymphs, absolute 10/23/2024 11:28:23 0.51 Below low normal 1.00-4.80 (K/ul) Final Monos, Abs 10/23/2024 11:28:23 0.23 0.00-1.10 (K/uL) Final Eos, Abs 10/23/2024 11:28:23 0.07 0.00-0.70 (K/uL) Final Basos, Abs 10/23/2024 11:28:23 0.02 0.00-0.20 (K/uL) Final Performing Location [facility] [address] [place] [place] [address]
--- OUTSIDE RECORDS SUMMARY | 2024-11-18 10:30 | External Medical Summary ---
Author Name Unknown Address Unknown Organization [id number] [address] [place] [address] Laboratory Report Ordering Provider Test Date Status MIROSLAVA LARA 10/23/2024 11:28:23 Final Observation Date Value Abnormality Reference (Units ) Status BUN 10/23/2024 11:28:23 4 Below low normal 6-2 0 (mg/dL) Final Creatinine 10/23/2024 11:28:23 0.4 Below low normal 0. 5-1.0 (mg/dL) Final The above reference range is based on the legal sex of the patient only. Results should be interpreted together with patient's sex at , gender identity, and clinical context. Glomerular filtration rate/1 .73 sq M.predicted [Volume Rate/Area] in Serum, Plasma or Blood by Creatinine-based formula (CKD-EPI) 10/23/2024 11:28:23 >90 >=60 (mL/min) Final eGFR is calculated based on the legal sex of the patient, using the CKD-EPI 2020 equation. Sodium 10/23/2024 11:28:23 132 Below low normal 135 -146 (mmol/L) Final Potassium 10/23/2024 11:28:23 4.8 3.5-5.1 (m mol/L) Final Cl 10/23/2024 11:28:23 89 Below low normal 98- 107 (mmol/L) Final CO2 10/23/2024 11:28:23 34 Above high normal 22 -32 (mmol/L) Final Anion gap 10/23/2024 11:28:23 9 7-15 (mmol /L) Final Glucose 10/23/2024 11:28:23 97 70-120 (mg /dL) Final Albumin 10/23/2024 11:28:23 4.2 3.8-5.0 (g /dL) Final AST (Aspartate aminotransferase) 10/23/2024 11:28:23 36 Above high normal 10-35 (U/L) Final Alk Phos 10/23/2024 11:28:23 52 35-130 (U/ L) Final Bilirubin, Total 10/23/2024 11:28:23 0.3 <=1 .2 (mg/dL) Final Calcium 10/23/2024 11:28:23 9.7 8.4-10.2 ( mg/dL) Final Protein 10/23/2024 11:28:23 7.1 6.0-8.3 (g /dL) Final ALT (Alanine aminotransferase) 10/23/2024 11:28:23 19 10-35 (U/L) Pastor matthews Performing Location [facility] [address] [place] [address]
--- OUTSIDE RECORDS SUMMARY | 2024-11-18 10:30 | External Medical Summary | Summary of Care ---
Author Name Unknown Organization [facility] Address [address] [place] [address] Phone [phone] Care Team Providers Care Rn Progressive Care Unit Name Role Phone Jung Ruvalcabar Nick DO Primary Care Provider Reason for Visit * Reason Comments Outpatient Testing Encounter Details Date Type Department Care Team (Late st Contact Info) Description 10/23/2024 11:20 AM EST Laboratory Laboratory, [facility] [address] [place] [phone] [facility] [address] [place] [address] Encounter for long-term (current) use of medications; Dyslipidemia, goal LDL below 100 Allergies Active Allergy Reactions Criticality Noted Date Comments Amitriptyline Other (Please comment) High 08/23/2016 Passed out Other Reaction(s): PASSED OUT Aspirin Other (Please comment) 04/03/2023 Shortness of breath Diphenhydramine Other (Please comment) 02/16/2024 QT Prolongation Cefditoren Pivoxil Allergy test positive Medium 10/21/2021 Allergic to Casein Cephalosporins 02/14/2000 See Keflex Ciprofloxacin Hives 08/23/2016 Codeine Hypotension 09/08/2016 Propoxyphene Other (Please comment) 08/23/2016 Spinning, hallucinations Erythromycin Other (Please comment) 08/15/1997 agitation Azathioprine 01/24/2024 Cephalexin Unknown 08/23/2016 Occurred in Lactose Allergy test positive High 10/21/2021 bronchospasms Latex 02/24/1999 oral and vaginal sores Macrolides And Ketolides 08/15/1997 Methylmethacrylate 12/07/2022 Metronidazole 08/23/2016 Irregular heart beat A-G Pro 10/26/2021 Morphine And Codeine 08/15/1997 affects bp Nitrofurantoin 01/25/2012 Dizzy, irregular heart beat Quinolones Hives 04/19/2001 Including Cipro Sulfa Antibiotics Other (Please comment) 02/24/1999 heartbeat irregularities,dizzy Tetracyclines & Related Unknown 08/15/1997 Trimethoprim 08/15/1997 documented as of this encounter (statuses as of 10/23/2024) Medications oxygen IN GAS 1 LPM via NC with exertion only 1 Each 05/17/20 22 Active predniSONE 2.5 MG Oral Tablet (Deltasone) Take One to Two tablet by mouth as needed 20 Tablet 10/25/19 24 Active Dicyclomine HCl 20 MG Oral Tablet (Bentyl) Take 1 Tablet by mouth every 6 hours. Active Triamcinolone Acetonide 0.1 % External Ointment (Aristocort)Indica tions:Atopic dermatitis, unspecified type Apply topically to affected area 2 times a day. To affected area. 80 g 5 11/28/19 24 Active Additional Information Patient not taking.Reported on 10/23/2024 Sertraline HCl 50 MG Oral Tablet (Zoloft)Indication s:Adjustment disorder with depressed mood TAKE 1 TABLET BY MOUTH EVERY DAY 90 Tablet 3 12/21/19 24 Active hydrOXYzine HCl 10 MG Oral Tablet (Atarax)Indication s:Pruritic dermatitis Take 1 Tablet by mouth 3 times a day as needed for Itching. 90 Tablet 3 04/09/20 24 Active Additional Information Patient not taking.Reported on 10/23/2024 Clobetasol Propionate 0.05 % External Cream (Temovate)Indicati ons:Nummular dermatitis Apply to rash on back and legs twice daily 60 g 5 04/25/20 24 Active Amoxicillin-Pot Clavulanate 875-125 MG Oral Tablet (Augmentin)Indicat ions:COPD, group D, by GOLD 2017 classification ([facility]) Take 1 Tablet by mouth in the morning and 1 Tablet before bedtime. 20 Tablet 3 06/11/20 24 Active Miconazole Nitrate 2 % Vaginal Cream (Monistat 7)Indications:Labi al irritation Administer into the vagina daily. 45 g 1 07/15/20 24 Active Additional Information Patient not taking.Reported on 10/23/2024 predniSONE 1 MG Oral Tablet (Deltasone)Indicat ions:Dermatomyosit is (HCC) Take one tablet daily 60 Tablet 2 07/23/20 24 Active LORazepam 0.5 MG Oral Tablet (Ativan)Indication s:Anxiety state,Adjustment disorder with depressed mood TAKE 1 TABLET BY MOUTH UP TO EVERY 8 HOURS NEEDED FOR ANXIETY [employer]: TEVA ONLY (lactose free tablets) 90 Tablet 10/14/19 25 025 Discontin ued(Refil l) documented as of this encounter (statuses as of 10/23/2024) Active Problems Problem Noted Date Diagnosed Date Dermatomyositis 12/20/2023 Intermittent complete atrioventricular block 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 Dyslipidemia, goal LDL below 100 11/28/2023 COPD, group D, by GOLD 2017 classification 12/19 Overview: Per COPD GOLD Classification Sacroiliitis, not elsewhere classified Abnormal heart rhythm 10/21/2021 At risk for prolonged QT interval syndrome 10/21 Age-related osteoporosis wit hout current pathological fracture 10/12/2020 Gastro-esophageal reflux disease without esophag itis 10/12/2020 Paraseptal emphysema 10/25/2019 Anxiety state 09/30/2019 Atherosclerotic heart diseas e of [place] coronary artery without angina pectoris 09/30/2019 Chronic respiratory failure with hypoxia and hyp ercapnia 11/14/2018 Family history of osteoporosis in mother 018 Allergy to multiple antibiotics 08/23/2016 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 History of tobacco use 10/10/2002 ADJ DISORDER W/DEPRES MOOD 08/15/1997 Irritable bowel syndrome 08/15/1997 Centrilobular emphysema documented as of this encounter (statuses as of 10/23/2024) Resolved Problems Problem Noted Date Diagnosed Date Resolved Date COPD, group B, by GOLD 2017 classification 06/13/2018 12/22/2022 Overview: Per COPD GOLD Classification Lactose intolerance 08/23/2016 04/14/20 22 Overview (04/14/2022): Duplicate-Intestinal disaccharidase deficiency Pain in the abdomen 05/09/2016 05/25/20 17 Rectal pressure 05/09/2016 12/21/2017 CHR SEROUS OM,right 10/14/2010 10/12/19 16 Unspecified viral infection, in conditions classified elsewhere and of unspecified site 04/15/2010 10/12/2015 Abdominal pain, left upper quadrant 03/11/2009 10/12/2015 Chest pain 11/30/2007 10/12/2015 COPD, severity to be determined 11/12/2007 08/23/2016 ADVANCE DIRECTIVE INFORMATION 10/27/2006 07/15/2024 Overview (10/27/2006): Information given previously. Dysfunction of eustachian tube 07/11/2006 10/12/2015 Overview (01/08/2008): Rt, Dr. Maldonado Sensorineural hearing loss 07/11/2006 0 10/12/2015 Overview (01/08/2008): Dr. Maldonado Temporomandibular joint diso rders, unspecified 07/11/2006 10/12/2015 Overview (01/08/2008): Dr. Maldonado Allergic rhinitis 07/11/2006 05/25/2017 Overview (01/08/2008): Dr. Maldonado Carpal tunnel syndrome 01/29/200211/11 Thrush 05/12/1999 10/27/2006 documented as of this encounter (statuses as of 10/23/2024) Immunizations Name Administration Dates Next Due COVID-19 mRNA, LNP-s, No Pre serve, 2-Dose Series (Moderna) 04/27/2021,11/14/2020,10/17/2020 Pneumococcal Conjugate Vacc, 13 Valent (Prevnar) 07/28/2014 Pneumococcal Polysaccharide PPV23 (Pneumovax) 06/22/2017,08/17/2009,02/20/2009(Defer red: Patient Refused) Seasonal Influenza, PF, 6 M & above, IM , (FluLaval or Fluzone) 06/13/2018 Seasonal Influenza, Quadriva lent Hd (Fluzone Hd) 05/26/2023 Seasonal Influenza, Quadriva lent Hd, 65+ Yrs 06/22/2022 Seasonal Influenza, Trivalen t, (IIV3), PF, (Fluzone) 06/12/2024 TDAP (age 10 and older)(Boostrix) 05/29/2020 TDAP, Age 7 and older, IM (Adacel) 08/17,01/29/2009(Deferred: Patient Refused) documented as of this encounter Social History Tobacco Use Types Packs/Day Years Used Date Smoking Tobacco: Former Cigarettes 1 50 1 - 06/26/2019 Smokeless Tobacco: Never Alcohol Use Standard Drinks/Week Comments Not Currently 3.3 (1 standard drink = 0.6 oz p ure alcohol) 8 drinks/week PHQ-2 Answer Date Recorded PHQ-2 Score -1 08/17/2020 Hunger Vital Sign Answer Date Recorded Within the past 12 months, y ou worried that your food would run out before you got the money to buy more. Never true 07/20/20 24 Within the past 12 months, t he food you bought just didn't last and you didn't have money to get more. Never true 07/20/2024 Childcare Answer Date Recorded Do you feel overwhelmed with taking care of a child, family member or friend? No 07/20/2024 Does your family need help f inding childcare? (Household - for ages 0-17 years) Not on file 07/20/2024 Clothing Answer Date Recorded Have you been unable to get clothing when it was really needed? No 07/20/2024 Is your family able to get c lothes or diapers when needed? (Household - for ages 0-17 years) Not on file 07/20/2024 Personal Safety Answer Date Recorded Do you feel unsafe or have concerns for your saf ety? No 07/20/2024 Do you have concerns for you r family's safety? (Household - for ages 0-17 years) Not on file 07/20/2024 Utilities Answer Date Recorded Do you have trouble paying y our heating, water, or electric bill? No 07/20/2024 Is your family able to pay t he heat, water, or electric bill? (Household - for ages 0-17 years) Not on file 07/20/2024 Does your family have access to good internet? (Household - for ages 0-17 years) Not on file 07/20/2024 Employment Status Answer Date Recorded Are you unemployed or without regular income? No 07/20/2024 Does the household have a re lar source of income? (Household - for ages 0-17 years) Not on file 07/20/2024 Social Connections Answer Date Recorded How often do you feel lonely or isolated from th ose around you? Never 07/20/2024 Financial Resource Strain Answer Date R ecorded Do you have any trouble payi ng for your medications, or do you think you might in the future? No 07/20/2024 Does your family have troubl e paying for medicine? (Household - for ages 0-17 years) Not on file 07/20/2024 Transportation Needs Answer Date Record ed READ ONLY Do you have troubl e getting a ride to medical visits or work? Never True 07/20/2024 Does your family have a hard time getting a ride to doctors visits? (Household - for ages 0-17 years) Not on file 07/20/2024 Has lack of transportation k ept you from medical appointments, meetings, work, or from getting things needed for daily living? Check all that apply. No 07/20/2024 Do you (or your family) have trouble finding or paying for a ride (transportation)? (Household - for ages 0-17 years) Not on file 07/20/2024 Housing Stability Answer Date Recorded Do you currently live in a s helter or have no steady place to sleep at night? No 07/20/2024 READ ONLY Do you think you a re at risk of becoming homeless? No 07/20/2024 Does your family worry about paying for your home or becoming homeless? (Household - for ages 0-17 years) Not on file 1 09/19/2023 Are you homeless or worried that you might be in the future? No 07/20/2024 Are you (or your family) gisel eless or worried that you might be in the future? (Household - for ages 0-17 years) Not on file Food Insecurity Answer Date Recorded Do you need food for this week? No 07/20/2024 Are you able to get enough f ood for your family? (Household - for ages 0-17 years) Not on file 07/20/2024 Does your family need food t his week? (Household - for ages 0-17 years) Not on file 07/20/2024 Do you always have enough fo od for your family? (Household - for ages 0-17 years) Not on file 07/20/2024 Food Insecurity Answer Date Recorded Within the past 12 months, y ou worried that your food would run out before you got the money to buy more. Never true 07/20/20 24 Within the past 12 months, t he food you bought just didn't last and you didn't have money to get more. Never true 07/20/2024 Do you need food for this week? No 07/20/2024 Comments No Sex and Gender Information Value Date Recorded Sex Assigned at Choose not to disclose 9:41 AM EDT Legal Sex Female 5:56 AM EST Gender Identity Female 09/30/2019 2:18 PM EST Sexual Orientation Straight 12/07/2023 9: 41 AM EDT Sexual Orientation Choose not to disclose 2023 9:41 AM EDT documented as of this encounter Plan of Treatment Upcoming Encounters Date Type Department Care Team (Late st Contact Info) Description 11/22/2024 10:15 AM EDT Office Visit Dermatology [facility] [place] [address] [place] [address] Raj Jackson MD [address] [place] [address] 12/24/2024 1:00 PM EDT Telemedicine Pharmacy, [facility] [address] [facility] [address] [place] [address] 01/01/2025 1:30 PM EDT Imaging Radiology [facility] 1st Floor, [place] [address] [place] [phone] 01/22/2025 10:40 AM EDT Office Visit [facility] [address] [place] [address] Theron Ruvalcaba, DO [address] [address] 05/05/2025 8:40 AM EDT Office Visit [facility] [address] [place] [address] Theron Ruvalcaba, DO [address] [place] [address] Pending Results Name Type Priority Associated Diagnoses Date /Time LIPID PANEL WITH DIRECT LDL IF TG IS HIGH Lab Routine Dyslipidemia, goal LDL below 100 10/23/2024 11:28 AM EST Scheduled Procedures Name Priority Associated Diagnoses Date/Ti me COLONOSCOPY FLEXIBLE PROXIMAL DIAGNOSTIC Recall Colon cancer screening Health Maintenance Due Date Last Done Comments Zoster Vaccines (1 of 2) 1998 Adult Wellness Visit 2014 Depression Screening 08/17/2021 08/17/2020 *BISPHONATE OR OTHER ACCEPTABLE MEDICATION NEEDED FOR OSTEOPOROSIS (REFER TO SMARTSET #1146) 08/03/2023 COVID-19 Vaccine ( season) 2024 04/27/2021, 11/14/2020, 10/17/2020 O2 ASSESSMENT COMPLETED IN PAST YEAR FOR COPD 10/23/2025 10/23/2024 DTap/Tdap Vaccines (3 - Td or Tdap) 05/29/2030 05/29/2020, 08/17/2009 VITAMIN D LEVEL ONCE IN A LIFETIME-USE SMARTSET# 23977 Completed 12/16/2008 Cologuard Discontinued 10/27/2016 Pneumococcal Vaccine: 50+ Years Completed 06/22/2017, 07/28/2014, 08/17/2009 DXA Scan Discontinued 11/11/2019 Alpha-1 Antitrypsin Completed 05/29/2020 Colonoscopy Discontinued 12/24/2020, 09/11, 09/20/2016, Additional history exists Colorectal Cancer Screening Discontinued Lung Cancer Screening Completed 12/29/2023 , 12/26/2022, 01/04/2022, Additional history exists Influenza Vaccine (FLU shot) Completed 06/12/2024, 05/26/2023, 06/22/2022, Additional history exists Fecal Occult Blood Test Discontinued HPV (Gardasil) Vaccine Aged Out No lo nger eligible based on patient's age to complete this topic Hepatitis B Vaccine Aged Out No longe r eligible based on patient's age to complete this topic MENINGOCOCCAL (MENACTRA/MENVEO) Aged Out No longer eligible based on patient's age to complete this topic Sigmoidoscopy Discontinued documented as of this encounter Medical Devices Implanted Type Area Forest Management Teacher Device Identifier Shelf Expiration Date Model / Serial / Lot Lens Intraoc 17.5 - [id number] - [id number] Implanted:Qty: 1 on 10/09/2018 by Elvis Pacheco MD at OR [facility] Right: Eye [employer] 04/10/2023 [id number] / [id number] / Lens Intraoc 20.5 - [id number] - [id number] Implanted:Qty: 1 on 10/16/2018 by Elvis Pacheco MD at OR [facility] Left: Eye [employer] 07/11/2023 [id number] / [id number] / [id number] documented as of this encounter Procedures Procedure Name Priority Date/Time Associated Diagnosis Comments DIFFERENTIAL, AUTOMATED Routine 10/23/2024 11:28 AM EST Encounter for long-term (current) use of medications COMPREHENSIVE METABOLIC PANEL Routine 10/23/2024 11:28 AM EST Dyslipidemia, goal LDL below 100 CBC Routine 10/23/2024 11:28 AM EST Encounter for long-term (current) use of medications ALBUMIN / CREATININE RATIO, URINE Routine 10/23/2024 11:28 AM EST Encounter for long-term (current) use of medications CBC Routine 10/23/2024 11:28 AM EST Encounter for long-term (current) use of medications documented in this encounter Results * (ABNORMAL) DIFFERENTIAL, AUTOMATED (10/23/2024 11:28 AM EST) WBC 2.36(L) 4.00 - 10.80 K/uL 10/23/2024 11:53 AM EST [facility] Neutrophils % 64.9 40.0 - 75.0 % 10/23/2024 11:53 AM EST [facility] [place] [facility] Lymphocytes % 21.6 18.0 - 42.0 % 10/23/2024 11:53 AM EST [facility] Monocytes % 9.7 1.0 - 11.0 % 10/23/2024 11:53 AM EST [facility] [place] [facility] Eosinophils % 3.0 0.0 - 6.0 % 10/23/2024 11:53 AM EST [facility] [place] [facility] Basophils % 0.8 0.0 - 2.0 % 10/23/2024 11:53 AM EST [facility] Absolute Neutrophils 1.53(L) 1.80 - 7.70 K/uL 10/23/2024 11:53 AM EST [facility] Absolute Lymphocytes 0.51(L) 1.00 - 4.80 K/ul 10/23/2024 11:53 AM EST [facility] [place] [facility] Absolute Monocytes 0.23 0.00 - 1.10 K/uL 10/23/2024 11:53 AM EST [facility] [place] [facility] Absolute Eosinophils 0.07 0.00 - 0.70 K/uL 10/23/2024 11:53 AM EST [facility] Absolute Basophils 0.02 0.00 - 0.20 K/uL 10/23/2024 11:53 AM EST [facility] Blood Venous blood specimen / Unknown Venipuncture / Unknown 10/23/2024 11:28 AM EST 10/23/2024 11:28 AM EST Theron Ruvalcaba DO LAB BLOOD ORDERABLES Fi nal Result [facility] [address] [place] [address] * (ABNORMAL) CBC (10/23/2024 11:28 AM EST) WBC 2.36(L) 4.00 - 10.80 K/uL 10/23/2024 11:53 AM EST [facility] RBC 4.43 3.85 - 5.15 M/uL 10/23/2024 11:53 AM EST [facility] HGB 12.2 12.0 - 15.3 g/dL 10/23/2024 11:53 AM EST [facility] HCT 39.3 36.0 - 45.2 % 10/23/2024 11:[address] [facility] MCV 88.7 81.5 - 97.5 fL 10/23/2024 11:[address] [facility] MCH 27.5 27.0 - 34.0 pg 10/23/2024 11:[address] [facility] MCHC 31.0 32.0 - 36.0 g/dL 10/23/2024 11:53 AM EST [facility] RDW 13.2 11.5 - 15.5 % 10/23/2024 11:53 AM EST [facility] PLT 201 140 - 400 K/uL 10/23/2024 11:53 AM EST [facility] MPV 9.5 6.6 - 11.1 fL 10/23/2024 11:53 AM EST [facility] Blood Venous blood specimen / Unknown Venipuncture / Unknown 10/23/2024 11:28 AM EST 10/23/2024 11:28 AM EST us Theron Ruvalcaba DO LAB BLOOD ORDERABLES Fi nal Result [facility] [address] [place] [address] * ALBUMIN / CREATININE RATIO, URINE (10/23/2024 11:28 AM EST) Albumin, Random Urine <1.20 mg/dL 10/23/2024 5:[address] [facility] Creatinine, Random Urine 58 mg/dL 10/23/2024 5:[address] [facility] Albumin / Creatinine Ratio, Urine <21 <30 mg/g Creat 10/23/2024 5:[address] [facility] Urine Urine specimen obtained by clean catch procedure / Unknown Non-blood Collection / Unknown 10/23/2024 11:28 AM EST 10/23/2024 11:28 AM EST [facility] - 10/23/2024 5:40 PM EST Normal: <30 mg/g creatinine High: 30-300 mg/g creatinine Very High: >300 mg/g creatinine Nephrotic: >2200 mg/g creatinine us Theron Ruvalcaba DO LAB URINE ORDERABLES Fi nal Result [facility]ATORY [facility] [address] [place] [address] * (ABNORMAL) COMPREHENSIVE METABOLIC PANEL (10/23/2024 11:28 AM EST) Pathologist [facility] BUN 4(L) 6 - 20 mg/dL 10/23/2024 1:17 PM EST [facility] [place] [facility] CREATININE 0.4(L) 0.5 - 1.0 mg/dL 10/23/2024 1:17 PM EST [facility] [place] [facility] Comment:The above reference range is based on the legal sex of the patient only. Results should be interpreted together with patient's sex at , gender identity, and clinical context. EGFR >90 >=60 mL/min 10/23/2024 1:17 PM EST [facility] [place] [facility] Comment:eGFR is calculated b ased on the legal sex of the patient, using the CKD- EPI 2020 equation. SODIUM 132(L) 135 - 146 mmol/L 10/23/2024 1:17 PM EST [facility] POTASSIUM 4.8 3.5 - 5.1 mmol/L 10/23/2024 1:17 PM EST [facility] CHLORIDE 89(L) 98 - 107 mmol/L 10/23/2024 1:17 PM EST [facility] CO2 34(H) 22 - 32 mmol/L 10/23/2024 1:17 PM EST [facility] ANION GAP 9 7 - 15 mmol/L 10/23/2024 1:17 PM EST [facility] GLUCOSE 97 70 - 120 mg/dL 10/23/2024 1:17 PM EST [facility] Albumin 4.2 3.8 - 5.0 g/dL 10/23/2024 1:17 PM EST [facility] AST 36(H) 10 - 35 U/L 10/23/2024 1:17 PM EST [facility] Alkaline Phosphatase 52 35 - 130 U/L 10/23/2024 1:17 PM EST [facility] Bilirubin, Total 0.3 <=1.2 mg/dL 10/23/2024 1:17 PM EST [facility] CALCIUM 9.7 8.4 - 10.2 mg/dL 10/23/2024 1:17 PM EST [facility] Protein 7.1 6.0 - 8.3 g/dL 10/23/2024 1:17 PM EST [facility] ALT 19 10 - 35 U/L 10/23/2024 1:17 PM EST [facility] Blood Venous blood specimen / Unknown Venipuncture / Unknown 10/23/2024 11:28 AM EST 10/23/2024 11:28 AM EST us Theron Ruvalcaba DO LAB BLOOD ORDERABLES Fi nal Result [facility] [address] [facility] [place] [address] documented in this encounter Visit Diagnoses Diagnosis Encounter for long-term (current) use of medications Encounter for long-term (current) use of other medications Dyslipidemia, goal LDL below 100 Other and unspecified hyperlipidemia documented in this encounter Advance Directives Documents on File Type Date Recorded Patient Roll Scale Worker Expl anation Power of Dependency Case Manager 03/19/2024 signed on 03/14/2024 Care Teams Rn Progressive Care Unit Relationship Specialty Start Date End Date Theron Ruvalcaba DO [address] [address] PCP - General Family Medicine 11/11/19 documented as of this encounter
--- OUTSIDE RECORDS SUMMARY | 2024-11-18 10:30 | External Medical Summary ---
Author Name Unknown Address Unknown Organization [id number]:LABORATORY [facility] - [address] [place] [address] Laboratory Report Ordering Provider Test Date Status MIROSLAVA LARA 10/23/2024 11:28:23 Final Normal: <30 mg/g creatinine< br/>High: 30-300 mg/g creatinine
Very High: >300 mg/g creatinine
Nephrotic: >2200 mg/g creatinine Observation Date Value Abnormality Reference (Units ) Status Albumin, Urine 10/23/2024 11:28:23 <1.20 (mg/dL) Final Creatinine, Urine 10/23/2024 11:28:23 58 (mg/dL) Final Albumin/Creatinine [Mass Ratio] in Urine 10/23/2024 11:28:23 <21 <30 (mg/g Creat) Final Performing Location LABORATORY [facility] - [address] [place] [address]
--- OUTSIDE RECORDS SUMMARY | 2024-11-18 10:30 | External Medical Summary ---
Author Name Unknown Address Unknown Organization [id number]:[facility] - [address] [place] [address] Laboratory Report Ordering Provider Test Date Status MIROSLAVA LARA 10/23/2024 11:28:23 Final Observation Date Value Abnormality Reference (Units ) Status WBC, Total 10/23/2024 11:28:23 2.36 Below low normal 4. 00-10.80 (K/uL) Final RBC 10/23/2024 11:28:23 4.43 3.85-5.15 (M/uL) Final Hemoglobin 10/23/2024 11:28:23 12.2 12.0-15.3 (g/dL) Final HCT 10/23/2024 11:28:23 39.3 36.0-45.2 (%) Final MCV 10/23/2024 11:28:23 88.7 81.5-97.5 (fL) Final MCH 10/23/2024 11:28:23 27.5 27.0-34.0 (pg) Final MCHC 10/23/2024 11:28:23 31.0 32.0-36.0 (g/dL) Final RDW 10/23/2024 11:28:23 13.2 11.5-15.5 (%) Final Platelets 10/23/2024 11:28:23 201 140-400 (K /uL) Final MPV 10/23/2024 11:28:23 9.5 6.6-11.1 ( fL) Final Performing Location [facility] 0 - [address] [place] [address]
--- OUTSIDE RECORDS SUMMARY | 2024-11-18 10:30 | External Medical Summary | Summary of Care ---
Author Name Unknown Organization [facility] Address [address] [place] [address] Phone [phone] Care Team Providers Care District Resource Officer Name Role Phone Theron Ruvalcaba Primary Care Provider Encounter Details Date Type Department Care Team (Late st Contact Info) Description 10/01/2024 Population Health External Data Unspecified Department Allergies Active Allergy Reactions Criticality Noted Date [...] Azathioprine 01/24/2024 Cephalexin Unknown 08/23/2016 Occurred in 1960's Lactose Allergy test positive High 10/21/2021 bronchospasms [...] as of this encounter (statuses as of 10/01/2024) Medications oxygen IN GAS 1 LPM via NC with exertion only 1 Each 05/17/20 22 Active predniSONE 2.5 MG Oral Tablet (Deltasone) Take One to Two tablet by mouth as needed 20 Tablet 10/25/19 24 Active Additional Information Patient not taking.Reported on 07/23/2024 Dicyclomine HCl 20 MG Oral Tablet (Bentyl) Take 1 Tablet by mouth every 6 hours. Active Triamcinolone Acetonide 0.1 % External Ointment (Aristocort)Indica tions:Atopic dermatitis, unspecified type Apply topically to affected area 2 times a day. To affected area. 80 g 5 11/28/19 24 Active Additional Information Patient not taking.Reported on 07/23/2024 Sertraline HCl 50 MG Oral Tablet (Zoloft)Indication s:Adjustment disorder with depressed mood TAKE 1 TABLET BY MOUTH EVERY DAY 90 Tablet 3 12/21/19 24 Active hydrOXYzine HCl 10 MG Oral Tablet (Atarax)Indication s:Pruritic dermatitis Take 1 Tablet by mouth 3 times a day as needed for Itching. 90 Tablet 3 04/09/20 24 Active Additional Information Patient not taking.Reported on 07/23/2024 Clobetasol Propionate 0.05 % External Cream (Temovate)Indicati ons:Nummular dermatitis Apply to rash on back and legs twice daily 60 g 5 04/25/20 24 Active Amoxicillin-Pot Clavulanate 875-125 MG Oral Tablet (Augmentin)Indicat ions:COPD, group D, by GOLD 2017 classification ([facility]) Take 1 Tablet by mouth in the morning and 1 Tablet before bedtime. 20 Tablet 3 06/11/20 24 Active Miconazole Nitrate 2 % Vaginal Cream (Monistat 7)Indications:Labi al irritation Administer into the vagina daily. 45 g 1 07/15/20 24 Active predniSONE 1 MG Oral Tablet (Deltasone)Indicat ions:Dermatomyosit is ([facility]) Take one tablet daily 60 Tablet 2 07/23/20 24 Active LORazepam 1 MG Oral Tablet (Ativan)Indication s:Grief,Anxiety state Take 1 Tablet by mouth at bedtime as needed for Anxiety. 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 (Household - for ages [...] ages 0-17 years) Not on file 07/20/2024 Comments No Sex and Gender Information [...] Care Team (Late st Contact Info) Description 10/17/2024 11:30 AM EST Office Visit Dermatology [facility] [address] [facility] [place] [address] Raj Jackson MD [address] [facility] [place] [address] 10/23/2024 10:40 AM EST Office Visit [facility] [address] [place] [address] Theron Ruvalcaba, DO [address] [place] [address] 01/22/2025 10:40 AM EDT Office Visit [facility] [address] [place] [address] Theron Ruvalcaba, DO [address] [place] [address] 05/05/2025 8:40 AM EDT Office Visit [facility] [address] [place] [address] Theron Ruvalcaba, DO [address] [place] [address] Scheduled Procedures Name Priority Associated Diagnoses Date/Ti [...] ASSESSMENT COMPLETED IN PAST YEAR FOR COPD 07/23/2025 07/23/2024 DTap/Tdap Vaccines (3 - Td or Tdap) 05/29/2030 05/29/2020, 08/17/2009 VITAMIN D LEVEL ONCE IN A LIFETIME-USE SMARTSET# [id number] Completed 12/16/2008 Cologuard Discontinued 10/27/2016 Pneumococcal Vaccine: [...] this encounter Medical Devices Implanted Type Area Shoe Lining Fitter Device Identifier Shelf Expiration Date Model / Serial / Lot Lens Intraoc 17.5 - [id number] - [id number] Implanted:Qty: 1 on 10/09/2018 by Elvis Pacheco MD at [place] [facility] Right: Eye [employer] 04/10/2023 [id number] / [id number] / Lens Intraoc 20.5 - [id number] - [id number] Implanted:Qty: 1 on 10/16/2018 by Elvis Pacheco MD at [place] [facility] Left: Eye [employer] 07/11/2023 [id number] / [id number] / [id number] documented as of this encounter Advance Directives Documents on File Type Date Recorded Patient Manager Ship Expl anation Power of R&D Engineer 03/19/2024 signed on 03/14/2024 Care Teams District Resource Officer Relationship Specialty Start Date End Date Theron Ruvalcaba DO [address] [place] [address] PCP - General Family Medicine 11/11/19 documented as of this encounter
--- OUTSIDE RECORDS SUMMARY | 2024-11-18 10:30 | External Medical Summary ---
Author Name Unknown Address Unknown Organization K01:[facility] [address] [place] [address] Laboratory Report Ordering Provider Test Date Status MIROSLAVA LARA 10/23/2024 11:28:23 Final Observation Date Value Abnormality Reference (Units ) Status Triglyceride 10/23/2024 11:28:23 81 <=174 ( mg/dL) Final Triglyceride Reference Range s (mg/dL):
<150 Acceptable
150-174 Borderline high
175-499 High
>=500 Very high Cholesterol 10/23/2024 11:28:23 262 Above high normal <200 (mg/dL) Final Total Cholesterol Reference Ranges (mg/dL):
<200 Desirable
200-239 Borderline high
>=240 High HDL 10/23/2024 11:28:23 89 >49 (mg/dL ) Final HDL Cholesterol Reference Ra nges (mg/dL):
>=60 High (Desirable)
<50 Low (Undesirable) For Females
<40 Low (Undesirable) For Males NON-HDL CHOLESTEROL 10/23/2024 11:28:23 173 Above high normal <=159 (mg/dL) Final Non-HDL Cholesterol Referenc e Range (mg/dL):
<100 Target level for high risk ASCVD patient
<130 Optimal for general population
130-159 Near optimal for general population
160-189 Borderline High
190-219 High
>=220 Very High LDL, (calculated) 10/23/2024 11:28:23 157 Above high n ormal <=129 (mg/dL) Final LDL Cholesterol Reference Ra nges (mg/dL):
<70 Target level for high risk ASCVD patient
<100 Optimal for general population
100-129 Near optimal for general population
130-159 Borderline high
160-189 High
>=190 Very high Performing Location [facility] [address] [facility] [address]
--- OUTSIDE RECORDS SUMMARY | 2024-11-18 10:30 | External Medical Summary | Summary of Care ---
Author Name Unknown Organization [facility] Address [address] [place] [address] Phone [phone] Care Team Providers Care Per Diem Interpreter Name Role Phone Theron Ruvalcaba DO Primary Care Provider Reason for Referral * Evaluate & Treat - Unlimited Visits (Within 10 days (routine)) - Authorized Specialty Diagnoses / Procedures Referred By She gonzales Referred To Contact Pharmacist / Pharmacy Diagnoses Chronic respiratory failure with hypoxia and hypercapnia (HCC) Paraseptal emphysema (HCC) COPD, group D, by GOLD 2017 classification (HCC) Dyslipidemia, goal LDL below 100 Theron Ruvalcaba DO [address] [place] [address] Phone: tel: fax: Referral ID Status Reason Start Date Expiration Date Visits Requested Visits Authorized [id number] Authorized Specialty Services Required 10/23/2024 04/21/2025 99 99 Question Answer Referral Priority Within 10 days (routine) Where should this appointment be scheduled? [facility] Referring Provider Role: Primary Care Reason for Referral: Med Review Comments Pharmacist Medication Therapy Management: Minimum frequency patient should be seen in person for medication management: as appropriate per clinical condition and patient status By my signature, I understand that my patient Dipika Weldon will have her medication therapy managed by the [facility] Medication Therapy Disease Management [facility] ([facility]) per established policies, procedures, and protocols. I also certify that this referral may serve as an initiation of service for the management of drug therapy in the above noted patient. [facility] providers will be responsible for scheduling patient visits, obtaining appropriate laboratory studies, and adjusting medication management therapy per patient's need, in addition to those roles spelled out in the clinic policy, procedures, and drug management protocols. I understand that the service provided by the [facility] Clinic is voluntary and have informed patient that they can refuse the service at their discretion. I am aware that the [facility] Clinic will provide me with a copy of the patient encounter via my [employer] InBasket. I authorize the [facility] Clinic to carry out these activities on my behalf. I consider this program to be a necessary part of the patient's medical care. Theron Ruvalcaba DO Reason for Visit * Reason Comments Re-Check 3 months Encounter Details Date Type Department Care Team (Latest Contact Info) Description 10/23/2024 10:40 AM EST Office Visit [facility] [address] [place] [address] Theron Ruvalcaba DO [address] [place] [address] Chronic respiratory failure with hypoxia and hypercapnia (HCC)*; Paraseptal emphysema (HCC); COPD, group D, by GOLD 2017 classification (HCC); Centrilobular emphysema (HCC); Sacroiliitis, not elsewhere classified (HCC); Dermatomyositis (HCC); Dyslipidemia, goal LDL below 100; Encounter for long-term (current) use of medications; Anxiety state; ADJ DISORDER W/DEPRES MOOD; History of tobacco use; Intermittent complete atrioventricular block (HCC); Ophthalmic migraine; Grief; Atherosclerosis of [place] coronary artery of [place] heart without angina pectoris; Age-related osteoporosis without current pathological fracture Allergies Active Allergy Reactions Criticality Noted Date [...] ions:COPD, group D, by GOLD 2017 classification ([facility]) Take 1 Tablet by mouth in the morning and 1 Tablet before bedtime. 20 Tablet 3 06/11/20 24 Active Miconazole Nitrate 2 % Vaginal Cream (Monistat 7)Indications:Labi al irritation Administer into the vagina daily. 45 g 1 07/15/20 24 Active Additional Information Patient not taking.Reported on 10/23/2024 predniSONE 1 MG Oral Tablet (Deltasone)Indicat ions:Dermatomyosit is ([facility]) Take one tablet daily 60 Tablet 2 07/23/20 24 Active LORazepam 0.5 MG Oral Tablet (Ativan)Indication s:Anxiety state,Adjustment disorder with depressed mood Take 1.5 Tablets by mouth every 8 hours as needed for Anxiety. TAKE 1 TABLET BY MOUTH UP TO EVERY 8 HOURS NEEDED FOR ANXIETY [employer]HOU[employer] DISTRIBUTION ASSOCIATE: TEVA ONLY (lactose free tablets) 135 Tablet 10/23/19 25 Active LORazepam 0.5 MG Oral Tablet (Ativan)Indication s:Anxiety state,Adjustment disorder with depressed mood TAKE 1 TABLET BY MOUTH UP TO EVERY 8 HOURS NEEDED FOR ANXIETY [employer]ARE[employer] DISTRIBUTION ASSOCIATE: TEVA ONLY (lactose free tablets) 90 Tablet [...] state 09/30/2019 Atherosclerotic heart diseas e of [place] coronary artery without angina pectoris 09/30/2019 Chronic [...] No 07/20/2024 Does the household have a [facility] source of income? (Household - for ages [...] AM EDT documented as of this encounter Last Filed Vital Signs Vital Sign Reading Time Taken Comments Blood Pressure 130/64 10/23/2024 10:53 AM EST Pulse 67 10/23/2024 10:53 AM EST Temperature 36.6 °C (97.9 °F) 10/23/2024 10:[address] Respiratory Rate - - Oxygen Saturation 93% 10/23/2024 10:53 AM EST Inhaled Oxygen Concentration - - Weight - - Height 154.9 cm (5' 1") 10/23/2024 10:53 AM EST Body Mass Index - - documented in this encounter Progress Notes * Theron Ruvalcaba, DO - 10/23/2024 12:25 PM EST Images from the original note were not included. Assessment and Plan Assessment & Plan Chronic Obstructive Pulmonary Disease (COPD) Stable with occasional fluctuations in oxygen saturation. Discussed the importance of maintaining oxygen saturation between 88-95% and adjusting oxygen flow rate accordingly. Noted patient's effective use of pursed-lip breathing and diaphragmatic breathing. -Continue current management and monitor oxygen saturation. -Consider reducing oxygen flow rate if saturation consistently above 95%. Grief Doing well currently And is surrounded with family Intermittent heart block Avoid QT prolongation medications Dermatomyositis Patient hesitant to start Methotrexate due to potential side effects. Discussed the benefits of Methotrexate in managing dermatomyositis and the importance of starting with a low dose. -Encourage patient to start Methotrexate at a low dose. -Order blood work to monitor CK levels. Medication Management Patient experiencing difficulty with precise dosing of Lorazepam and concerns about lactose in Prednisone. Discussed the possibility of meeting with a clinical pharmacist for medication therapy management. -Refer to clinical pharmacist for medication therapy management. COVID-19 Vaccination Patient has not received a COVID-19 vaccine in over a year. Discussed the importance of vaccination, especially given patient's high-risk status. -Advise patient to receive COVID-19 vaccine at local pharmacy. Follow-up in January 2025. History of Present Illness Dipika Weldon is a 74 year old adult that presents for Re-Check (3 months) History of Present Illness The patient, with a history of dermatomyositis and COPD, presents for a follow- up visit. She reports a recent weight gain of three pounds over the past three months, which she considers a significantimprovement. She has been eating regularly, although she did not have breakfast on the day of the visit. Respiratory-wilks, the patient reports doing okay, with her oxygen saturation levels mostly ranging between 93 to 95. However, she has noticed instances where her oxygen levels reach 99, which she is concerned might indicate she is receiving too much oxygen. She reports that her oxygen levels drop to the 80s within 30 seconds to a minute of removing her oxygen supply. The patient is also concerned about the lactose content in her prednisone medication and is lookingfor a substitute. She is also interested in new bronchodilators that do not contain drugs she cannot take. She expresses fear about starting methotrexate due to the potential side effects. The patient has not had a COVID-19 vaccine in over a year and is considering getting one. She also reports having no headaches and sleeping fine. Physical Exam Vitals: 10/23/24 1053 Temp: 97.9 °F (36.6 °C) Pulse: 67 SpO2: 93% BP: 130/64 Physical Exam Constitutional: Appearance: Normal appearance. HENT: Head: Normocephalic and atraumatic. Eyes: Extraocular Movements: Extraocular movements intact. Pupils: Pupils are equal, round, and reactive to light. Cardiovascular: Rate and Rhythm: Normal rate. Pulmonary: Effort: Pulmonary effort is normal. Breath sounds: Wheezing present. No rhonchi or rales. Neurological: General: No focal deficit present. Mental Status: She is alert and oriented to person, place, and time. Psychiatric: Mood and Affect: Mood normal. Behavior: Behavior normal. Wrap-Up Time: Total time today was 42 minutes excluding any time spent in the performance of separately billed services. Text in this note was generated using an ambient documentation service. I discussed the use of a device to record and summarize our discussion today. All persons present during the encounter consented to its use. documented in this encounter Nursing Notes * Marisela Singh Student - 10/23/2024 10:49 AM EST The patient has been properly identified by confirmation of name and date of . Chief Complaint Patient presents with Re-Check 3 months documented in this encounter Plan of Treatment Upcoming Encounters Date Type Department Care Team (Late st Contact Info) Description 11/22/2024 10:15 AM EDT Office Visit Dermatology [facility] [address] [facility] [place] [address] Raj Jackson MD [address] [facility] [address] 12/24/2024 1:00 PM EDT Telemedicine Pharmacy, [facility] [address] [place] [phone] [facility] [address] [place] [address] 01/01/2025 1:30 PM EDT Imaging Radiology [address] [place] [phone] 01/22/2025 10:40 AM EDT Office Visit [facility] [address] [place] [address] Theron Ruvalcaba, DO [address] [place] [address] 05/05/2025 8:40 AM EDT Office Visit [facility] [address] [place] [address] Theron Ruvalcaba, DO [address] [place] [address] Pending Results Name Type Priority Associated Diagnoses Date /Time LIPID PANEL WITH DIRECT LDL IF TG IS HIGH Lab Routine Dyslipidemia, goal LDL below 100 10/23/2024 11:28 AM EST Scheduled Orders Name Type Priority Associated Diagnoses Orde r Schedule LIPID PANEL WITH DIRECT LDL IF TG IS HIGH Lab Routine Dyslipidemia, goal LDL below 100 Expected: 10/23/2024, Expires: 10/23/2025 Scheduled Procedures Name Priority Associated Diagnoses Date/Ti in COLONOSCOPY FLEXIBLE PROXIMAL DIAGNOSTIC Recall Colon cancer screening Scheduled Referrals Name Type Priority Associated Diagnoses Orde r Schedule PHARMACIST MEDS THERAPY MGMT REFERRAL OP Referral Within 10 days (routine) Chronic respiratory failure with hypoxia and hypercapnia (HCC) Paraseptal emphysema (HCC) COPD, group D, by GOLD 2017 classification (HCC) Dyslipidemia, goal LDL below 100 Ordered: 10/23/2024 Health Maintenance Due Date Last Done Comments [...] D LEVEL ONCE IN A LIFETIME-USE SMARTSET# [id number] Completed 12/16/2008 Cologuard Discontinued 10/27/2016 Pneumococcal Vaccine: [...] this encounter Medical Devices Implanted Type Area Security Consultant Device Identifier Shelf Expiration Date Model / Serial / Lot Lens Intraoc 17.5 - [id number] - [id number] Implanted:Qty: 1 on 10/09/2018 by Elvis Pacheco MD at OR [facility] Right: Eye [employer] 04/10/2023 [id number] / [id number] / Lens Intraoc 20.5 - [id number] - [id number] Implanted:Qty: 1 on 10/16/2018 by Elvis Pacheco MD at OR [facility] Left: Eye [employer] 07/11/2023 [id number] / [id number] / [id number] documented as of this encounter Results * ALBUMIN / CREATININE RATIO, URINE (10/23/2024 11:28 AM EST) Albumin, Random Urine <1.20 mg/dL 10/23/2024 5:40 PM EST [facility] Creatinine, Random Urine 58 mg/dL 10/23/2024 5:40 PM EST [facility] Albumin / Creatinine Ratio, Urine <21 <30 mg/g Creat 10/23/2024 5:40 PM EST [facility] Urine Urine specimen obtained by clean catch procedure / Unknown Non-blood Collection / Unknown 10/23/2024 11:28 AM EST 10/23/2024 11:28 AM EST Narrative [facility] - 10/23/2024 5:40 PM EST Normal: <30 mg/g creatinine High: 30-300 mg/g creatinine Very High: >300 mg/g creatinine Nephrotic: >2200 mg/g creatinine us Theron Ruvalcaba DO LAB URINE ORDERABLES Fi nal Result [facility] [address] [place] [address] * (ABNORMAL) COMPREHENSIVE METABOLIC PANEL (10/23/2024 11:28 AM EST) BUN 4(L) 6 - 20 mg/dL 10/23/2024 1:17 PM EST [facility]10 CREATININE 0.4(L) 0.5 - 1.0 mg/dL 10/23/2024 1:17 PM EST [facility] Comment:The above reference range is based on the legal sex of the patient only. Results should be interpreted together with patient's sex at , gender identity, and clinical context. EGFR >90 >=60 mL/min 10/23/2024 1:17 PM EST [facility]10 Comment:eGFR is calculated b ased on [...] LAB BLOOD ORDERABLES Fi nal Result [facility] [address] [place] [id number] documented in this encounter Visit Diagnoses Diagnosis Chronic respiratory failure with hypoxia and hypercapnia (HCC)- Primary Paraseptal emphysema (HCC) Other emphysema COPD, group D, by GOLD 2017 classification (HCC) Centrilobular emphysema (HCC) Other emphysema Sacroiliitis, not elsewhere classified (HCC) Sacroiliitis, not elsewhere classified Dermatomyositis (HCC) Dermatomyositis Dyslipidemia, goal LDL below 100 Other and unspecified hyperlipidemia Encounter for long-term (current) use of medications Encounter for long-term (current) use of other medications Anxiety state Anxiety state, unspecified ADJ DISORDER W/DEPRES MOOD Adjustment disorder with depressed mood History of tobacco use Personal history of tobacco use, presenting hazards to health Intermittent complete atrioventricular block (HCC) Atrioventricular block, complete Ophthalmic migraine Other forms of migraine, without mention of intractable migraine without mention of status migrainosus Grief Adjustment disorder with depressed mood Atherosclerosis of [place] coronary artery of [place] heart without angina pectoris Age-related osteoporosis without current pathological fracture Senile osteoporosis documented in this encounter Advance Directives Documents on File Type Date Recorded Patient Racking Technician Expl anation Power of Diesel Pile Hammer Operator 03/19/2024 signed on 03/14/2024 Care Teams Per Diem Interpreter Relationship Specialty Start Date End Date Theron Ruvalcaba DO [address] [place] [address] PCP - General Family Medicine 11/11/19 documented as of this encounter
--- OUTSIDE RECORDS SUMMARY | 2024-11-18 10:30 | External Medical Summary | Continuity of Care Document ---
Author Name Unknown Organization [facility] [address] [phone] Care Team Providers Care Bobbin Winder Tender Name Role Phone Theron Ruvalcaba Primary Care Physician [phone] Encounter [facility] [id number] Date(s): 09/02/24 - 09/02/24 [facility] [address] [facility] [facility] [address] [phone] Encounter Diagnosis Dermatomyositis(Discharge Diagnosis) - 09/02/24 Dermatitis(Discharge Diagnosis) - 09/02/24 Discharge Disposition: Home or Self Care Attending Physician: MD Reis Galen T Allergies, Adverse Reactions, Alerts Substance Criticality Severity Reaction Reaction Severity Status ciprofloxacin Hives Active codeine Hypotension Active tetracycline Unknown Active erythromycin unknown Active nitrofurantoin Irrgeular hea rt beat Dizzy Active trimethoprim Unknown Active aspirin Unknown Active cephalosporins unknown Activ e sulfa drugs Dizzy Heartbeat irregularities Active Keflex Unknown Active Darvon Hallucinations Spinning Active Benadryl QT Prolongation Acti ve Latex Hives Active Immune Globulin, Intravenous Hives Active Allergy Not found in Search QT prolonging agents unknown Dairy Active azaTHIOprine Unknown Active metroNIDAZOLE irregular heart beat Active Assessment and Plan Extracted from: Title:Clinical Document Author:MD Reis Galen T Date:09/02/24 DERMATOLOGY OUTPATIENT NOTE Name: IQRA MONZON Patient Number: [id number] : 1950 Date of Service: 09/02/2024 Primary Care Physician: DO Ruvalcaba Trevor S Chief Complaint: Follow up. 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 She presented with symptoms for the first time in October 2023. She was treated at [facility] with azathioprine at first, which was not effective. After a few months she was transitioned to IVIg and after the second infusion she had a substantial rash outbreak, that was deemed to be a morbilliform drug eruption secondary to the IVIg. It resolved in about a week. Since last visit she has developed new rash on the chest, neck and scalp, and has had worsening of the rash on the hands. The knuckles have erosions. She has new weakness in the upper arms and in her knees, and perhaps in her calves. Topical steroids have not been helpful with the new rash. She has a new sore spot on the R antihelix. Present for weeks. She sleeps on that ear. Her since last visit, and she had to delay her imaging studies. They were completed this morning. She has a [facility] lab report of TIF1g+ abs. Her rash is painful and burning and her weakness limits her ADLs. 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 No other major health issues. She gets yearly chest CT. Hx of long QT syndrome NO significant fam hx SHx: Denies EtOH Review of Systems: A 12 point review systems was conducted - no vision changes, headaches, numbness or tingling, no difficulty speaking or swallowing, no shortness of breath, no chest pain, no night sweats, no abnormal bleeding, no swollen lymph nodes, no infections or recurrent fevers. Current Home Meds: (Last Updated 09/02 14:17) LORazepam (LORazepam 0.5 mg oral tablet) clobetasol topical (clobetasol 0.05% topical ointment) 1 appl topical bid clobetasol topical (clobetasol 0.05% topical solution) 1 appl topical bid folic acid (folic acid 1 mg oral tablet) 1 mg PO Daily methotrexate (methotrexate 2.5 mg oral tablet) 15 mg PO q7days HAZARDOUS MEDICATION | tablet: green | suspension: yellow | oral soln: yellow | injection: yellow | prefilled syringe: Nursing - yellow, Pharmacy - green - [facility] 09/02 14:17 predniSONE (predniSONE 1 mg oral tablet) 1 mg PO Daily sertraline (sertraline 50 mg oral tablet) 50 mg PO Daily tofacitinib (tofacitinib 5 mg oral tablet) 5 mg PO bid HAZARDOUS MEDICATION | tablet: green | XR tablet: green | oral soln: teal - [facility] 07/08 13:59 Allergies and Sensitivities: aspirin(Unknown) trimethoprim(Unknown) tetracycline(Unknown) sulfa drugs(Heartbeat irregularities) sulfa drugs(Dizzy) nitrofurantoin(Dizzy) nitrofurantoin(Irrgeular heart beat) metroNIDAZOLE(irregular heart beat) Keflex(Unknown) azaTHIOprine(Unknown) erythromycin(unknown) Darvon(Spinning) Darvon(Hallucinations) codeine(Hypotension) ciprofloxacin(Hives) cephalosporins(unknown) Benadryl(QT Prolongation) Allergy Not found in Search(QT prolonging agents) Allergy Not found in Search(unknown) Allergy Not found in Search(Dairy) Immune Globulin, Intravenous(Hives) Latex(Hives) Past Medical History: Problems: No Chronic Problems OBJECTIVE Physical Exam Helene red scaly plaques on the dorsal hands with erosions on the knuckles. New rash on scalp, chest, arms, legs and trunk, BSA ~ 30% tenderness to palpation of the shoulders and quadriceps, 5/5 strength in the shoulders, elbow flexion and 4/5 extension, 4/5 hip extension and flexion, knee flexion and extension, ankle plantar and dorsiflexion. No finger ulcerations, no atrophy of the digital pulp This patient is well appearing, interactive and pleasant. Skin examination including the head, scalp, ears, eyelids, eyelashes, nose, lips, neck, chest, back, trunk, arms, hands, nails, legs, feet, and buttocks was performed and was negative save those items listed above ASSESSMENT: 74 yo woman with TIFg+ dermatomyositis, a severe rheumatic disease with high risk of morbidity and mortality. [id number] - TIF1g is associated with a substantial increase in cancer risk, with 40-60% of cases being paraneoplastic. She has extensive new rash. new rash, and increasing muscle weakness. It seems that she does have new dermatitis in addition to her dermatomyositis on her chest, arms neck. She has expert pulm care already, so we will not deploy any advanced pulm dz screening. PLAN: _ 1 ) Dermatitis - resistant to topical steroids, has not responded to azathioprine in the past. Rinvoq can help with her dermatitis, and has high liklihood to improve her DM as well. Upadacitinib 15 mg once daily. Discussed risks of infection, cytopenias, lipid abnormalities, thromboses and malignancy among others. Try to continue topicals (clobetasol) 2 ) TIF1g+ classical DM - 15 mg mtx weekly. Folic acid once daily. If dermatitis approved for dermatitis, will d/c methotrexate. Discussed risks of hepatotoxicity, cytopenias, infection and others. 3 ) muscle pain and stiffness - Check CPK and aldolase 4 ) Health maintenance - high risk medication tofacitinib - CBC and CMP after start and lipid profile. Check q 3 mo thereafter. RTC 3 months Primary Care Physician: DO Ruvalcaba Trevor S Addendum by MD Smiley, Torrie Hallman on September 02, 2024 15:38 EST I spent greater than 40 minutes were spe nt with the patient, greater than half of which was spent discussing treatment and counseling Medications clobetasol 0.05% topical ointment Start: 07/08/24 1:54:00 PM EDT, 1 appl, topical, bid, Disp# 30 g, Refills: 9, [id number] Start Date: 07/08/24 Status: Ordered clobetasol 0.05% topical solution Start: 07/08/24 1:54:00 PM EDT, 1 appl, topical, bid, Disp# 50 mL, Refills: 9, Pharmacy: [id number] Start Date: 07/08/24 Status: Ordered folic acid 1 mg oral tablet Start: 09/02/24 2:14:00 PM EST, 1 tab, PO, Daily, Disp# 90 tab, Refills: 9, Pharmacy: [id number] Start Date: 09/02/24 Stop Date: 02/19/27 Status: Ordered LORazepam 0.5 mg oral tablet Start: 07/08/24 1:02:00 PM EDT Start Date: 07/08/24 Status: Ordered methotrexate 2.5 mg oral tablet Start: 09/02/24 2:14:00 PM EST, 6 tab, PO, q7days, Disp# 78 tab, Refills: 2, Pharmacy: [id number] Start Date: 09/02/24 Stop Date: 05/30/25 Status: Ordered predniSONE 1 mg oral tablet Start: 07/08/24 1:02:00 PM EDT, 1 tab, PO, Daily Start Date: 07/08/24 Status: Ordered sertraline 50 mg oral tablet Start: 07/08/24 1:01:00 PM EDT, 1 tab, PO, Daily Start Date: 07/08/24 Status: Ordered tofacitinib 5 mg oral tablet Start: 07/08/24 1:59:00 PM EDT, 1 tab, PO, bid, Disp# 180 tab, Refills: 2, Pharmacy: [facility] Start Date: 07/08/24 Stop Date: 04/04/25 Status: Ordered Mental Status 09/02/24 Barriers to Learning one year None evide nt Mandatory Health Literacy Documentation Yes Health Literacy Communication Barriers N ever Primary Language Slovak Problem List No Chronic Problems Diagnosis Diagnosis Type Effective Dates Health Status Cl inical Service Informant Dermatomyositis Discharge Diagnosis 09/02/24 Dermatitis Discharge Diagnosis 09/02/24 Procedures Procedure Date Related Diagnosis Body Site Status Cataracts Completed Tonsillectomy Completed Social History Social History Type Response Smoking Status Never smoked cigaret farhat Sex Female Sex Representation Female (finding) Dermatology Outpatient Note * MD Smiley, Felipe T: PERFORM, MODIFY Event Display: Dermatology Outpt Note Authored Date: [id number] DERMATOLOGY OUTPATIENT NOTE Name: IQRA MONZON Patient Number: [id number] : 1950 Date of Service: 09/02/2024 Primary Care Physician: DO Ruvalcaba Trevor S Chief Complaint: Follow up. 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 She presentedwith symptoms for the first time in October 2023. She was treated at [facility] with azathioprine at first, which was not effective. After a few months she was transitioned to IVIg and after the second infusion she had a substantial rash outbreak, that was deemed to be a morbilliform drug eruption secondary to the IVIg. It resolved in about a week. Since last visit she has developed new rash on the chest, neck and scalp, and has had worsening of the rash on the hands. The knuckles have erosions. She has new weakness in the upper arms and in herknees, and perhaps in her calves. Topical steroids have not been helpful with the new rash. She has a new sore spot on the R antihelix. Present for weeks. She sleeps on that ear. Her since last visit, and she had to delay her imaging studies. They were completed this morning. She has a [facility] lab report of TIF1g+ abs. Her rash is painful and burning and her weakness limits her ADLs. 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 No other major health issues. She gets yearly chest CT. Hx of long QT syndrome NO significant fam hx SHx: Denies EtOH Review of Systems: A 12 point review systems was conducted - no vision changes, headaches, numbnessor tingling, no difficulty speaking or swallowing, no shortness of breath, no chest pain, no night sweats, no abnormal bleeding, no swollen lymph nodes, no infections or recurrent fevers. Current Home Meds: (Last Updated 09/02 14:17) LORazepam (LORazepam 0.5 mg oral tablet) clobetasol topical (clobetasol 0.05% topical ointment) 1 appl topical bid clobetasol topical (clobetasol 0.05% topical solution) 1 appl topical bid folic acid (folic acid 1 mg oral tablet) 1 mg PO Daily methotrexate (methotrexate 2.5 mg oral tablet) 15 mg PO q7days HAZARDOUS MEDICATION | tablet: green| suspension: yellow | oral soln: yellow | injection: yellow | prefilled syringe: Nursing - yellow,Pharmacy - green - [facility] 09/02 14:17 predniSONE (predniSONE 1 mg oral tablet) 1 mg PO Daily sertraline (sertraline 50 mg oral tablet) 50 mg PO Daily tofacitinib (tofacitinib 5 mg oral tablet) 5 mg PO bid HAZARDOUS MEDICATION | tablet: green | XR tablet: green | oral soln: teal - [facility] 07/08 13:59 Allergies and Sensitivities: aspirin(Unknown) trimethoprim(Unknown) tetracycline(Unknown) sulfa drugs(Heartbeat irregularities) sulfa drugs(Dizzy) nitrofurantoin(Dizzy) nitrofurantoin(Irrgeular heart beat) metroNIDAZOLE(irregular heart beat) Keflex(Unknown) azaTHIOprine(Unknown) erythromycin(unknown) Darvon(Spinning) Darvon(Hallucinations) codeine(Hypotension) ciprofloxacin(Hives) cephalosporins(unknown) Benadryl(QT Prolongation) Allergy Not found in Search(QT prolonging agents) Allergy Not found in Search(unknown) Allergy Not found in Search(Dairy) Immune Globulin, Intravenous(Hives) Latex(Hives) Past Medical History: Problems: No Chronic Problems OBJECTIVE Physical Exam Helene red scaly plaques on the dorsal hands with erosions on the knuckles. New rash on scalp, chest, arms, legs and trunk, BSA ~ 30% tenderness to palpation of the shoulders and quadriceps, 5/5 strength in the shoulders, elbow flexion and 4/5 extension, 4/5 hip extension and flexion, knee flexion and extension, ankle plantar and dorsiflexion. No finger ulcerations, no atrophy of the digital pulp This patient is well appearing, interactive and pleasant. Skin examination including the head, scalp, ears, eyelids, eyelashes, nose, lips, neck, chest, back, trunk, arms, hands, nails, legs, feet, and buttocks was performed and was negative save those items listed above ASSESSMENT: 74 yo woman with TIFg+ dermatomyositis, a severe rheumatic disease with high risk of morbidity and mortality. [id number] - TIF1g is associated with a substantial increase in cancer risk, with 40-60% of cases being paraneoplastic. She has extensive new rash. new rash, and increasing muscle weakness. It seems that she does have new dermatitis in addition to her dermatomyositis on her chest, arms neck. She has expert pulm care already, so we will not deploy any advanced pulm dz screening. PLAN: _ 1 ) Dermatitis - resistant to topical steroids, has not responded to azathioprine in the past. Rinvoq can help with her dermatitis, and has high liklihood to improve her DM as well. Upadacitinib 15 mg once daily. Discussed risks of infection, cytopenias, lipid abnormalities, thromboses and malignancy among others. Try to continue topicals (clobetasol) 2 ) TIF1g+ classical DM - 15 mg mtx weekly. Folic acid once daily. If dermatitis approved for dermatitis, will d/c methotrexate. Discussed risks of hepatotoxicity, cytopenias, infection and others. 3 ) muscle pain and stiffness - Check CPK and aldolase 4 ) Health maintenance - high risk medication tofacitinib - CBC and CMP after start and lipid profile. Check q 3 mo thereafter. RTC 3 months Primary Care Physician: DO Ruvalcaba Trevor S Electronic Signature on File Electronically Reviewed/Signed by: Felipe Reis MD Author Signature Dt/Tm:09/02/2024 03:36 PM Department of Dermatology [facility] * MD Smiley, Felipe Hallman: PERFORM Event Display: Dermatology Outpt Note Authored Date: [id number] I spent greater than 40 minutes were spent with the patient, greater than half of which was spent discussing treatment and counseling Electronic Signature on File CC: Theron Ruvalcaba DO [address] [place] [id number] * Electronically Reviewed/Signed by: Felipe Reis MD Author Signature Dt/Tm:09/02/2024 03:38 PM Department of Dermatology [facility] Patient Care team information Care Team Personnel Name: DO Ruvalcaba Trevor S Position: Referring DIRECT Member Role: Primary Care Provider Address: [address] [place] [address]"
[2024-11-18 10:31] LABS: Albumin Globulin Ratio 1.3 (0.9-2); Albumin Level 4.2 gm/dl (3.4-5.0); BUN Creatinine Ratio 13.5 (10-20); Bilirubin,Total 0.4 mg/dl (0.2-1.0); Calcium 9.5 mg/dl (8.6-10.3); Creatinine Clr Calc Pharmacy 94.3 ml/min; Globulin 3.3 gm/dl (2.5-4.0); Potassium 3.9 mmol/L (3.5-5.1); Total Protein 7.5 gm/dl (6.0-8.3)
--- NOTE | 2024-11-18 10:33 | XRay Report ---
XR chest 1V portable CLINICAL HISTORY: Chest pain, nonspecific COMPARISON STUDY: 04/17/2023 FINDINGS: Single view chest is unchanged demonstrating no acute cardiopulmonary process. Flattened di aphragms and mild bibasilar fibrotic changes are redemonstrated. There is no focal airspace opacity o r pleural effusion. There is no pneumothorax. The heart and pulmonary vascularity are unremarkable. IMPRESSION: Stable exam; no acute process ACT 112: Negative or not required by law. Electronically signed by: Ana Porras M.D. 11/18/2024 10:32 AM
[2024-11-18 10:36] LABS: Troponin I High Sensitivity 5.5 pg/ml (0-14)
[2024-11-18 10:42] LABS: Partial Thromboplastin Ratio 1.2; Partial Thromboplastin Time 31 Seconds (21-31)
[2024-11-18 11:40] LABS: HCO3 VBG 40 mmol/L; Oxygen Saturation VBG 61.6 %; PCO2 VBG 72 mmHg (38-50); PO2 VBG 34 mmHg; pH VBG 7.35 (7.36-7.41)
[2024-11-18 12:00] LABS: Adenovirus PCR Not Detected (NotDetected); Bordetella parapertussis PCR Not Detected (NotDetected); Bordetella pertussis PCR Not Detected (NotDetected); Chlamydia pneumoniae PCR Not Detected (NotDetected); Coronavirus 229E PCR Not Detected (NotDetected); Coronavirus CoV-2 (COVID19)PCR Not Detected (NotDetected); Coronavirus HKU1 PCR Not Detected (NotDetected); Coronavirus NL63 PCR Not Detected (NotDetected); Coronavirus OC43PCR Not Detected (NotDetected); Human Metapneumovirus PCR Not Detected (NotDetected); Influenza A PCR Not Detected (NotDetected); Influenza B PCR Not Detected (NotDetected); Mycoplasma pneumoniae PCR Not Detected (NotDetected); Parainfluenza Virus 1 PCR Not Detected (NotDetected); Parainfluenza Virus 2 PCR Not Detected (NotDetected); Parainfluenza Virus 3 PCR Not Detected (NotDetected); Parainfluenza Virus 4 PCR Not Detected (NotDetected); Respiratory Syncytial VirusPCR Not Detected (NotDetected); Rhinovirus/Enterovirus PCR Not Detected (NotDetected)
[2024-11-18] MEDS ORDERED: ACETAMINOPHEN 325 MG TAB PO PRN (12:58)
[2024-11-18] MEDS ORDERED: LORazepam 0.5 MG TAB PO PRN (12:58)
[2024-11-18] MEDS: AMOXICILLIN/CLAVULANATE 875 MG TAB PO SCH (13:09)
[2024-11-18] MEDS: ASPIRIN 81 MG CHEW PO SCH (13:09)
[2024-11-18 13:47] LABS: D Dimer 1180 ug/L FEU (0-500)
[2024-11-18] MEDS: OPTIRAY 320 125ml IV ONE (15:10)
--- NOTE | 2024-11-18 15:32 | CT Scan Report ---
CT ANGIOGRAPHY OF THE CHEST, PULMONARY EMBOLUS PROTOCOL CLINICAL HISTORY: Shortness of breath. Evaluate for pulmonary embolus. COMPARISON STUDY: Chest radiograph performed earlier today. Chest CT January 04, 2022. TECHNIQUE: Following IV administration of 120 mL of Optiray, helical axial images of the chest were o btained utilizing the pulmonary embolus protocol. Maximal intensity projections and sagittal and cor onal reformats were viewed on an independent 3D workstation. IV contrast was administered without co mplication. Automated exposure control was utilized for the study. A dose lowering technique was ut ilized adhering to the principles of ALARA. CT DOSE: 264.49 mGy.cm FINDINGS: No pulmonary emboli are identified. There is no thoracic aortic dissection. Size of the he art is normal. There is no pericardial effusion. No enlarged axillary, mediastinal or hilar lymph nod es are present. Emphysema is noted. There is no consolidation to suggest pneumonia. A few small pulmo nary nodules are unchanged since CT of January 04, 2022. These are likely benign. There are no suspicio us pulmonary nodules. Mild subpleural right lower lobe opacities favor atelectasis. IMPRESSION: 1. No pulmonary emboli identified. 2. No consolidation to suggest pneumonia. Mild subpleural right lower lobe opacities favor atelectasi s. 3. Emphysema. ACT 112: Negative or not required by law. Electronically signed by: Alfonso Simental M.D. 11/18/2024 3:30 PM
--- NOTE | 2024-11-18 17:26 | History & Physical Report ---
Date of Service November 18, 2024 Assessment & Plan (1) Acute exacerbation of chronic obstructive pulmonary disease: Plan: 74-year-old female with history of COPD, chronic respiratory failure on 2 L of O2, CAD, intermittent complete heart block, high risk for QT prolongation, IBS, GERD, anxiety, dermatomyositis on chronic prednisone, presenting with shortness of breath this evening. COPD exacerbation Acute Sinusitis Acute Bronchitis Chronic hypoxic and hypercapnic respiratory failure on 2 L of O2 BioFire: Negative Nasal MRSA swab: Ordered Serum culture: Ordered Chest x-ray no infiltrates CT angiogram chest: No PE Start Augmentin twice daily Solu-Medrol 40 mg IV every 8 hours Patient reports severe reaction to beta agonists, will hold off for now Not on maintenance inhaled bronchodilators as well Will consult pulmonology for further recommendations Reported bandlike pressure around her chest last night as well Likely secondary to ORDER BOOKER exacerbation Troponin x 1: Negative, trend troponins EKG: No acute ischemia or infarct Check echo D-dimer elevation CT angiogram chest negative for PE Check Doppler studies Other chronic medical problems: CAD- continue aspirin 81mg daily Intermittent complete heart block High risk for QT prolongation- has to be very careful with medications IBS GERD Anxiety-on Sertraline, As needed lorazepam Dermatomyositis- On prednisone 1 mg p.o. daily-hold for now in light of IV Solumedrol Multiple medication allergies-patient will take medications from home as she can only tolerate specific brands of medication DVT prophylaxis SCDs once DVT ruled out Conditional Code no Intubation Disposition lives at home with son plan of care discussed with patient and her son Nick at bedside in detail and at length all questions answered they are understanding, agreeable, comfortable with the plan of care Admission and Anticipated Discharge Date Admission Date: November 18, 2024 History of Present Illness Chief Complaint: Shortness of breath since last evening Primary Care Provider: Theron Ruvalcaba DO 74-year-old female with history of COPD, chronic respiratory failure on 2 L of O2, CAD, intermittent complete heart block, high risk for QT prolongation, IBS, GERD, anxiety, dermatomyositis on chronic prednisone, presenting with shortness of breath this evening. As per patient, she has noticed increased nasal drainage with yellow phlegm for the past few days as well as some sinus congestion. She has also noticed that progressive shortness of breath for the past few days. No fevers or chills. Last evening, patient was awake and because of shortness of breath and bandlike pressure sensation around her chest. No nausea vomiting, diaphoresis, dizziness. At the ER, blood pressure 153/79, heart rate 71, respiratory 22, 92% on 2 L of O2, afebrile. BioFire negative Chest x-ray no infiltrates or effusion Troponin negative x 2 EKG no signs of ischemia or infarct Patient given Solu-Medrol 125 mg IV. She declined nebulized treatments due to severe allergy bronchodilators On exam, patient seen resting in bed, on 2 L of O2 not in distress, not tachypneic, occasionally having some effort with speaking but speaks in sentences Allergies Allergy/AdvReac Type Severity Reaction Status Date / Time amitriptyline Allergy Severe PASSED OUT Verified 11/18/24 11:53 Milk Containing Products Allergy Severe difficulty Verified 11/18/24 13:16 (Dairy) breathing 24-36 hours after ingestion ciprofloxacin Allergy Intermediate HIVES Verified 11/18/24 11:53 diphenhydramine Allergy Intermediate "gets me Verified 11/18/24 11:53 too hyper" metronidazole Allergy Intermediate IRREGULAR Verified 11/18/24 11:53 HEART BEAT nitrofurantoin Allergy Intermediate DIZZY, Verified 11/18/24 11:53 IREGULAR HEARTBEAT propoxyphene Allergy Intermediate SPINNING, Verified 11/18/24 11:53 HALLUCINATIONS Quinolones Allergy Intermediate Hives Verified 11/18/24 11:53 epinephrine Allergy Mild heart Verified 11/18/24 11:53 beats fast and has twitches latex Allergy Mild thrush Verified 11/18/24 11:53 Methacrylate Analogues Allergy Mild THRUSH Verified 11/18/24 13:16 bacitracin Allergy Unknown Unknown Verified 11/18/24 11:53 cephalexin Allergy Unknown UNKNOWN Verified 11/18/24 11:53 Cephalosporins Allergy Unknown Unknown Verified 11/18/24 11:53 Cipro Allergy Unknown HIVES Verified 11/12/16 15:36 codeine Allergy Unknown Unknown Verified 11/18/24 11:53 Macrolide Antibiotics Allergy Unknown UNKNOWN Verified 11/18/24 11:53 neomycin Allergy Unknown Unknown Verified 11/18/24 11:53 polymyxin B Allergy Unknown Unknown Verified 11/18/24 11:53 Sulfa (Sulfonamide Allergy Unknown Unknown Verified 11/18/24 11:53 Antibiotics) tetracycline Allergy Unknown unknown Verified 11/18/24 11:53 Bactrim AdvReac Intermediate palpitation Verified 11/21/11 10:38 s morphine AdvReac Intermediate "affects Verified 11/18/24 11:53 BP" sulfamethoxazole AdvReac Intermediate palpitation Verified 11/18/24 11:53 s trimethoprim AdvReac Intermediate palpitation Verified 11/18/24 11:53 s erythromycin base AdvReac Mild agitation Verified 11/18/24 11:53 Home Medications Medication Instructions Recorded Confirmed Type sertraline 50 mg tablet (Zoloft) 50 mg PO QAM 07/02/19 11/18/24 History clobetasol 0.05 % scalp solution 1 applic topical BID PRN flare 11/18/24 5 History clobetasol 0.05 % topical ointment 1 applic topical BID Rash on legs 11/18/24 11/18/24 History lorazepam 0.5 mg tablet 0.5 mg PO Q8H PRN Anxiety 11/18/24 11/18/24 History prednisone 1 mg tablet 1 mg PO QAM 11/18/24 11/18/24 History Past Med/Surg History Problem List (Updated 11/18/24 @ 17:34 by Pj Glass MD) Shortness of breath (Acute) Chest pain (Acute) Acute respiratory failure with hypoxia and hypercarbia (Acute) Acute exacerbation of chronic obstructive pulmonary disease (Acute) Hypercapnic respiratory failure Pulmonary nodule COPD (chronic obstructive pulmonary disease) Colon cancer screening Encounter for pre-operative examination COPD exacerbation (Acute) Hypoxia Influenza (Acute) Influenza A Sensorineural hearing loss (Chronic Unknown) Bronchitis (Chronic) Pneumonia (Chronic) Urinary problem (Chronic) Medical History IBS (irritable bowel syndrome) On home oxygen therapy 1.5 LITERS ----- 24/7 Chronic obstructive pulmonary disease Hx of bronchitis Surgical History History of open reduction and internal fixation (ORIF) procedure left radius fx repair--hardware in place History of colonoscopy History of thumb surgery History of dental surgery 2 POST FOR DENTURES History of tonsillectomy and adenoidectomy Hx of section X1 Hx of carpal tunnel repair RIGHT AND LEFT Hx of cataract surgery bilt Family History Daughter Family history of reaction to anesthesia gets nauseated Uncle Family hx of colon cancer Uncle Family hx of colon cancer Other No significant family history Social History Smoking Status: Former smoker Tobacco Type: Cigarettes Smoking End Date: 2018; Second Hand Exposure: No; Do You Dip or Chew Tobacco: No; Tobacco Cessation Education Requested by Patient: No Hx Alcohol Use: No Hx Substance Use: Yes Last Used Substance Other:: 4 months ago Substance Use Type Other:: gummies Preferred Language: Cameroonian Communication Ability: Effective Kindergarten Prep Teacher Required: No Beliefs That Will Affect Care: None Current Living Situation: Family Current Living Situation Comment: son daughter and inlaws Other Information That Helps Us Care for You: No Feels Safe at Home: Yes Safety Concerns: Feels Safe At This Time Assistive Devices: Denture - Upper, Glasses and Oxygen - Continuous Assistive Devices Comment: partial lower Review of Systems Review of Systems: all noted and negative except for above Physical Exam Physical Exam: General- oriented x 3, not in distress, speaks in sentences with no effort or accessory muscle use Head- atraumatic Eyes- PERRL, EOMI, anicteric ENT- oropharynx clear Neck- supple, no JVD, no adenopathy, no thyromegaly; carotids +2/2, no bruits appreciated Lungs- Diminished breath sounds bilaterally, no wheezing Heart- normal rate, regular rhythm; no murmur, no gallop, no rub appreciated Abdomen- normal bowel sounds, nondistended, soft, no tenderness Extremities- no pretibial edema, no calf tenderness; peripheral pulses intact Neuro- alert, oriented x 3; CN 2-12 grossly intact; motor 5/5 bilaterally;sensation 100% on all extremities; no other gross focal neurologic deficits Skin- warm & dry Results & Data Results & Data Vital Signs (Past 12 Hours) Vital Signs Temp Pulse Pulse Resp BP BP Pulse Ox 11/18/24 16:04 11/18/24 16:04 36.7 C 85 20 155/70 H 92 11/18/24 13:03 78 16 11/18/24 13:00 134/74 11/18/24 12:57 85 21 11/18/24 12:36 73 15 11/18/24 12:30 139/78 11/18/24 12:12 78 17 11/18/24 12:00 156/79 H 11/18/24 12:00 156/79 H 11/18/24 12:00 156/79 H 11/18/24 11:54 75 24 89 L 11/18/24 11:30 68 19 92 11/18/24 11:30 159/78 H 11/18/24 11:30 159/78 H 11/18/24 11:18 69 23 93 11/18/24 11:00 141/85 H 11/18/24 11:00 141/85 H 11/18/24 11:00 141/85 H 11/18/24 10:39 71 20 95 11/18/24 10:30 70 19 92 11/18/24 10:30 149/81 H 11/18/24 10:03 71 22 11/18/24 10:00 153/79 H 11/18/24 10:00 153/79 H 11/18/24 09:40 70 11/18/24 09:40 98 11/18/24 09:33 156/77 H 11/18/24 09:13 36.0 C L 69 24 141/70 H 91 O2 Del Method O2 Flow Rate 11/18/24 16:04 Nasal Cannula 2.5 11/18/24 16:04 Nasal Cannula 2.5 11/18/24 13:03 11/18/24 13:00 11/18/24 12:57 11/18/24 12:36 11/18/24 12:30 11/18/24 12:12 11/18/24 12:00 11/18/24 12:00 11/18/24 12:00 11/18/24 11:54 11/18/24 11:30 11/18/24 11:30 11/18/24 11:30 11/18/24 11:18 11/18/24 11:00 11/18/24 11:00 11/18/24 11:00 11/18/24 10:39 11/18/24 10:30 11/18/24 10:30 11/18/24 10:03 11/18/24 10:00 11/18/24 10:00 11/18/24 09:40 11/18/24 09:40 Nasal Cannula 2 11/18/24 09:33 11/18/24 09:13 Nasal Cannula 2 all noted and reviewed including below Code Status & VTE Plan VTE Prophylaxis Plan VTE Prophylaxis will be ordered: Yes
--- NOTE | 2024-11-18 17:46 | Ultrasound Report ---
Clinical History: Elevated d-dimer Technique: Venous ultrasound evaluation was performed utilizing grayscale, color Doppler and wave form evaluation. Images were also obtained with and without compression Findings: The bilateral common femoral, superficial femoral, popliteal, and visualized calf veins demonstrate normal anechoic lumens with full compressibility. Normal flow is seen on color Doppler images. Expected waveforms were produced with augmentation maneuvers Impression: No evidence of deep venous thrombosis Electronically signed by Geoff Zaragoza 11-18-2024 5:46 PM
[2024-11-18] MEDS ORDERED: methylPREDNISolone 125 MG/2 ML VIAL IV ONE (18:00)
[2024-11-18] MEDS ORDERED: CHLORPHENIRAMINE 4 MG PO PRN (18:41)
[2024-11-18] MEDS: methylPREDNISolone 40 MG in SYRINGE 0 ML IV SCH (20:24)
[2024-11-18] MEDS: CLOBETASOL 0.05% EXT SCH (21:04)
--- NOTE | 2024-11-19 05:59 | Electrocardiogram Report ---
Test Reason : Blood Pressure : */* mmHG Vent. Rate : 68 BPM Atrial Rate : 68 BPM P-R Int : 150 ms QRS Dur : 88 ms QT Int : 358 ms P-R-T Axes : 86 82 61 degrees QTcB Int : 380 ms Normal sinus rhythm Anterior infarct (cited on or before 17-Apr-2023) Abnormal ECG When compared with ECG of 17-Apr-2023 10:40, No significant change was found Confirmed by Hola Gannon ([id number]) on 11/19/2024 5:59:21 AM Referred By: REFERRED SELF Confirmed By: Hola Gannon
[2024-11-19 06:06] LABS: Hematocrit (blood only) 33.7 % (37.0-47.0); Hemoglobin 10.6 g/dl (12.0-16.0); Mean Corpuscular Hgb Conc 31.5 g/dL (32.0-36.0); Mean Corpuscular Volume 85.8 fL (80.0-100.0); Mean Platelet Volume 9.3 fL (9.4-12.4); Platelet Count 213 K/uL (130-400); RDW Coefficient of Variation 12.7 % (11.5-14.5); RDW Standard Deviation 39.8 fL (36.4-46.3); Red Blood Count 3.93 M/uL (4.20-5.40)
[2024-11-19 06:26] LABS: BUN Creatinine Ratio 22.2 (10-20); Calcium 8.8 mg/dl (8.6-10.3); Creatinine Clr Calc Pharmacy 113.3 ml/min; Potassium 4.5 mmol/L (3.5-5.1)
[2024-11-19 07:27] LABS: Basophilic Stippling 1+; Polychromasia 1+; Stomatocytes 1+
[2024-11-19 07:28] LABS: Lymphocytes # (auto) 0.36 K/uL (1.20-3.40); Lymphocytes % (auto) 25.7 %; Monocytes # (auto) 0.11 K/uL (0.11-0.59); Monocytes % (auto) 7.9 %; Neutrophils # (auto) 0.93 K/uL (1.40-6.50); Neutrophils % (auto) 66.4 %
[2024-11-19 08:08] VITALS: RESP 20
[2024-11-19] MEDS: SERTRALINE 50 MG PO SCH (09:00)
[2024-11-19] MEDS ORDERED: CLOBETASOL 0.05% EXT SCH (09:00)
[2024-11-19] MEDS: ASPIRIN 325 MG PO SCH (09:02)
[2024-11-19] MEDS: LORAZEPAM 0.5 MG PO PRN (09:36)
--- NOTE | 2024-11-19 11:39 | Pulmonary Consultation ---
Date of Consultation November 19, 2024 Assessment & Plan (1) Shortness of breath: Patient's shortness of breath is mediated by her severe deconditioning and COPD. She needs outpatient PFTs. She is refusing to use nebulizers or inhalers for COPD as she is noting that they are contraindicated in prolonged QT syndrome. I offered a referral to cardiology to have a discussion with them regarding her prolonged QT and the use of inhalers. Patient again adamantly refuses the use of any COPD inhalers or nebulizer therapy which is the gold standard for treatment of COPD. Her QT on EKG from 11/19/2024 was 409 ms. (2) COPD (chronic obstructive pulmonary disease): Again our treatment options are limited given the patient's refusal of nebulizers [facility]. I also offered referral to pulmonary rehab which the patient is uncertain about. Fortunately she has quit smoking. I would recomme nd low-dose CT chest imaging as an outpatient for screening purposes of lung cancer. I would also recommend an outpatient PFT. She sees a pulmonary group for [facility] which can follow-up on the studies. (3) Chronic respiratory failure with hypercapnia: Patient has evidence of chronic hypercapnia based on VBG and elevated serum bicarbonate. Patient notes that she does not think she would tolerate an AVAPS machine or any kind of noninvasive ventilator. She wants to be discharged home today and is not interested in pursuing an behavioral analyst ABG tomorrow. She would like to pursue this as an outpatient. This could be pursued with her outpatient pulmonary provider, Romelia Wright. (4) Pulmonary cachexia due to chronic obstructive pulmonary disease: Recommend a dietitian consultation consultation with palliative care medicine given her reluctance to try different medications for COPD and her advanced symptoms. Plan Pulmonary sign off at this time. Please call with questions. History of Present Illness Reason for Consultation: "COPD exacerbation, chronic respiratory failure" Attending Physician: Sarah Meng MD History of Present Illness 74-year-old female with history of COPD. No prior PFTs available for review. Patient has extensive smoking history. She has a history of "congenital and acquired prolonged QTc syndrome" and notes that she follows with Dr. Aviles of electrophysiology. Patient notes that she uses no inhalers due to concerns of provoking her prolonged QT. She also notes that she had a prior sleep study which did not reveal apnea. She is not sure that she would tolerate BiPAP for CO2 retention and cannot give me a specific reason. She denies any shortness of breath at rest, but does endorse shortness of breath with exertion. She has occasional cough. No fevers or chills at this time. She endorses profound weakness in all her joints and muscle groups which she relates is secondary to dermatomyositis and is chronically on prednisone for. She lives at home with her son. She is no longer smoking. Right now she is on amoxicillin and not on any nebulizer or inhaler treatments. Chest CTA this admission revealed no consolidation concerning for pneumonia. Mild subpleural right lower lobe opacities favoring atelectasis. No evidence of pulmonary embolism and severe emphysema noted. Patient leukopenic on white count and mildly anemic. Patient also appears to be mildly neutropenic. Respiratory viral panel was negative. She is chronically on 1.5 L of oxygen at home for the past 6 years. Allergies Allergy/AdvReac Type Severity Reaction Status Date / Time amitriptyline Allergy Severe PASSED OUT Verified 11/18/24 11:53 Milk Containing Products Allergy Severe difficulty Verified 11/18/24 13:16 (Dairy) breathing 24-36 hours after ingestion ciprofloxacin Allergy Intermediate HIVES Verified 11/18/24 11:53 diphenhydramine Allergy Intermediate "gets me Verified 11/18/24 11:53 too hyper" metronidazole Allergy Intermediate IRREGULAR Verified 11/18/24 11:53 HEART BEAT nitrofurantoin Allergy Intermediate DIZZY, Verified 11/18/24 11:53 IREGULAR HEARTBEAT propoxyphene Allergy Intermediate SPINNING, Verified 11/18/24 11:53 HALLUCINATIONS Quinolones Allergy Intermediate Hives Verified 11/18/24 11:53 epinephrine Allergy Mild heart Verified 11/18/24 11:53 beats fast and has twitches latex Allergy Mild thrush Verified 11/18/24 11:53 Methacrylate Analogues Allergy Mild THRUSH Verified 11/18/24 13:16 bacitracin Allergy Unknown Unknown Verified 11/18/24 11:53 cephalexin Allergy Unknown UNKNOWN Verified 11/18/24 11:53 Cephalosporins Allergy Unknown Unknown Verified 11/18/24 11:53 Cipro Allergy Unknown HIVES Verified 11/12/16 15:36 codeine Allergy Unknown Unknown Verified 11/18/24 11:53 Macrolide Antibiotics Allergy Unknown UNKNOWN Verified 11/18/24 11:53 neomycin Allergy Unknown Unknown Verified 11/18/24 11:53 polymyxin B Allergy Unknown Unknown Verified 11/18/24 11:53 Sulfa (Sulfonamide Allergy Unknown Unknown Verified 11/18/24 11:53 Antibiotics) tetracycline Allergy Unknown unknown Verified 11/18/24 11:53 Bactrim AdvReac Intermediate palpitation Verified 11/21/11 10:38 s morphine AdvReac Intermediate "affects Verified 11/18/24 11:53 BP" sulfamethoxazole AdvReac Intermediate palpitation Verified 11/18/24 11:53 s trimethoprim AdvReac Intermediate palpitation Verified 11/18/24 11:53 s erythromycin base AdvReac Mild agitation Verified 11/18/24 11:53 Home Medications Medication Instructions Recorded Confirmed Type sertraline 50 mg tablet (Zoloft) 50 mg PO QAM 07/02/19 11/18/24 History clobetasol 0.05 % scalp solution 1 applic topical BID PRN flare 11/18/24 11/18/24 History clobetasol 0.05 % topical ointment 1 applic topical BID Rash on legs 11/18/24 11/18/24 History lorazepam 0.5 mg tablet 0.5 mg PO Q8H PRN Anxiety 11/18/24 11/18/24 History prednisone 1 mg tablet 1 mg PO QAM 11/18/24 11/18/24 History Patient History Medical History IBS (irritable bowel syndrome) On home oxygen therapy 1.5 LITERS ----- 24/ Chronic obstructive pulmonary disease Hx of bronchitis Surgical History History of open reduction and internal fixation (ORIF) procedure left radius fx repair--hardware in place History of colonoscopy History of thumb surgery History of dental surgery 2 POST FOR DENTURES History of tonsillectomy and adenoidectomy Hx of section X1 Hx of carpal tunnel repair RIGHT AND LEFT Hx of cataract surgery bilt Family History Daughter Family history of reaction to anesthesia gets nauseated Uncle Family hx of colon cancer Uncle Family hx of colon cancer Other No significant family history Social History Smoking Status: Former smoker Tobacco Type: Cigarettes Smoking End Date: 2018; Second Hand Exposure: No; Do You Dip or Chew Tobacco: No; Tobacco Cessation Education Requested by Patient: No Hx Alcohol Use: No Hx Substance Use: Yes Last Used Substance Other:: 4 months ago Substance Use Type Other:: gummies Preferred Language: Sami Communication Ability: Effective Company Manager Required: No Beliefs That Will Affect Care: None Current Living Situation: Family Current Living Situation Comment: son daughter and inlaws Other Information That Helps Us Care for You: No Feels Safe at Home: Yes Safety Concerns: Feels Safe At This Time Assistive Devices: Oxygen - Continuous Assistive Devices Comment: partial lower Review of Systems Review of Systems: All systems reviewed & are unremarkable except as noted in HPI & below Physical Exam Physical Exam: Constitutional: Patient appears to be of their stated age. Cachectic and frail appearing. Eyes: Pupils are equal round and reactive to light. Conjunctivae are normal. Anicteric sclera. Ears nose, mouth and throat: No perioral cyanosis. Neck: Trachea is midline. Visual inspection is normal. Respiratory: Prolonged phase of exhalation. Mild crackles at the bases. No wheezes. No increased work of breathing. Cardiovascular: Regular rate and rhythm. No murmurs. No edema. Gastrointestinal: Normal bowel sounds, soft, nontender and nondistended. No hepatosplenomegaly noted. Musculoskeletal: No cyanosis. Patient is able to move all extremities. Strength is 5 out of 5 in the upper and lower extremities. Skin: No rashes, warm dry and intact. Neurologic: No obvious focal neurological deficits seen. Psychiatric: Alert and oriented x3 with an anxious and depressed mood. Results & Data Results & Data Vital Signs (Past 12 Hours) Vital Signs Temp Pulse Pulse Resp BP Pulse Ox O2 Del Method 11/19/24 08:07 36.3 C L 60 20 103/59 L 94 Nasal Cannula 11/19/24 08:01 65 11/19/24 08:00 Nasal Cannula 11/19/24 03:09 36.7 C 84 14 115/60 93 Nasal Cannula O2 Flow Rate FiO2 11/19/24 08:07 2 11/19/24 08:01 11/19/24 08:00 2.5 11/19/24 03:09 2.5 PG Care Time/CCT Total # of Minutes Spent Total Time Spent with Patient: Total time spent is greater than 50% in coordination of care (as documented) at patient's floor/unit and/or counseling patient: Coding Level of Care Code 49704 INT INP/OBS CARE 75MIN Diagnoses Shortness of breath R06.02 COPD (chronic obstructive pulmonary disease) J44.9 Chronic respiratory failure with hypercapnia J96.12 Pulmonary cachexia due to chronic obstructive pulmonary disease R64; J44.9
[2024-11-19 12:02] VITALS: BP 127/68; PULSE 63; TEMP 97.9; O2SAT 90
--- NOTE | 2024-11-19 12:35 | Discharge Summary ---
Date of Service November 19, 2024 Admission HPI Per Admitting Provider 74-year-old female with history of COPD, chronic respiratory failure on 2 L of O2, CAD, intermittent complete heart block, high risk for QT prolongation, IBS, GERD, anxiety, dermatomyositis on chronic prednisone, presenting with shortness of breath this evening. As per patient, she has noticed increased nasal drainage with yellow phlegm for the past few days as well as some sinus congestion. She has also noticed that progressive shortness of breath for the past few days. No fevers or chills. Last evening, patient was awake and because of shortness of breath and bandlike pressure sensation around her chest. No nausea vomiting, diaphoresis, dizziness. At the ER, blood pressure 153/79, heart rate 71, respiratory 22, 92% on 2 L of O2, afebrile. BioFire negative Chest x-ray no infiltrates or effusion Troponin negative x 2 EKG no signs of ischemia or infarct Patient given Solu-Medrol 125 mg IV. She declined nebulized treatments due to severe allergy bronchodilators On exam, patient seen resting in bed, on 2 L of O2 not in distress, not tachypneic, occasionally having some effort with speaking but speaks in sentences Admission Exam Per Admitting Provider General- oriented x 3, not in distress, speaks in sentences with no effort or accessory muscle use Head- atraumatic Eyes- PERRL, EOMI, anicteric ENT- oropharynx clear Neck- supple, no JVD, no adenopathy, no thyromegaly; carotids +2/2, no bruits appreciated Lungs- Diminished breath sounds bilaterally, no wheezing Heart- normal rate, regular rhythm; no murmur, no gallop, no rub appreciated Abdomen- normal bowel sounds, nondistended, soft, no tenderness Extremities- no pretibial edema, no calf tenderness; peripheral pulses intact Neuro- alert, oriented x 3; CN 2-12 grossly intact; motor 5/5 bilaterally;sensation 100% on all extremities; no other gross focal neurologic deficits Skin- warm & dry Principal Diagnosis COPD exacerbation Chronic hypoxic and hypercapnic respiratory failure on 2 L of oxygen Discharge Exam General- oriented x 3, not in distress, speaks in sentences with no effort or accessory muscle use Head- atraumatic Eyes- PERRL, EOMI, anicteric ENT- oropharynx clear Neck- supple, no JVD, no adenopathy, no thyromegaly; carotids +2/2, no bruits appreciated Lungs- Diminished breath sounds bilaterally, no wheezing Heart- normal rate, regular rhythm; no murmur, no gallop, no rub appreciated Abdomen- normal bowel sounds, nondistended, soft, no tenderness Extremities- no pretibial edema, no calf tenderness; peripheral pulses intact Neuro- alert, oriented x 3; CN 2-12 grossly intact; motor 5/5 bi laterally;sensation 100% on all extremities; no other gross focal neurologic deficits Skin- warm & dry Discharge Data Allergies Allergy/AdvReac Type Severity Reaction Status Date / Time amitriptyline Allergy Severe PASSED OUT Verified 11/18/24 11:53 Milk Containing Products Allergy Severe difficulty Verified 11/18/24 13:16 (Dairy) breathing 24-36 hours after ingestion ciprofloxacin Allergy Intermediate HIVES Verified 11/18/24 11:53 diphenhydramine Allergy Intermediate "gets me Verified 11/18/24 11:53 too hyper" metronidazole Allergy Intermediate IRREGULAR Verified 11/18/24 11:53 HEART BEAT nitrofurantoin Allergy Intermediate DIZZY, Verified 11/18/24 11:53 IREGULAR HEARTBEAT propoxyphene Allergy Intermediate SPINNING, Verified 11/18/24 11:53 HALLUCINATIONS Quinolones Allergy Intermediate Hives Verified 11/18/24 11:53 epinephrine Allergy Mild heart Verified 11/18/24 11:53 beats fast and has twitches latex Allergy Mild thrush Verified 11/18/24 11:53 Methacrylate Analogues Allergy Mild THRUSH Verified 11/18/24 13:16 bacitracin Allergy Unknown Unknown Verified 11/18/24 11:53 cephalexin Allergy Unknown UNKNOWN Verified 11/18/24 11:53 Cephalosporins Allergy Unknown Unknown Verified 11/18/24 11:53 Cipro Allergy Unknown HIVES Verified 11/12/16 15:36 codeine Allergy Unknown Unknown Verified 11/18/24 11:53 Macrolide Antibiotics Allergy Unknown UNKNOWN Verified 11/18/24 11:53 neomycin Allergy Unknown Unknown Verified 11/18/24 11:53 polymyxin B Allergy Unknown Unknown Verified 11/18/24 11:53 Sulfa (Sulfonamide Allergy Unknown Unknown Verified 11/18/24 11:53 Antibiotics) tetracycline Allergy Unknown unknown Verified 11/18/24 11:53 Bactrim AdvReac Intermediate palpitation Verified 11/21/11 10:38 s morphine AdvReac Intermediate "affects Verified 11/18/24 11:53 BP" sulfamethoxazole AdvReac Intermediate palpitation Verified 11/18/24 11:53 s trimethoprim AdvReac Intermediate palpitation Verified 11/18/24 11:53 s erythromycin base AdvReac Mild agitation Verified 11/18/24 11:53 Consultations 11/18/24 11:29 ED Decision to Admit Stat 11/18/24 20:42 Consult Pulmonology Routine Ordered Studies 11/18/24 13:47 CT angio chest PE protocol Stat 11/18/24 16:40 US venous doppler LE Routine Hospital Course (1) Acute exacerbation of chronic obstructive pulmonary disease: Per prior attending w/ addendum: 74-year-old female with history of COPD, chronic respiratory failure on 2 L of O2, CAD, intermittent complete heart block, high risk for QT prolongation, IBS, GERD, anxiety, dermatomyositis on chronic prednisone, presenting with shortness of breath this evening. COPD exacerbation Acute Sinusitis Acute Bronchitis Chronic hypoxic and hypercapnic respiratory failure on 2 L of O2 BioFire: Negative Nasal MRSA swab: Ordered Serum culture: Ordered Chest x-ray no infiltrates CT angiogram chest: No PE Start Augmentin twice daily Solu-Medrol 40 mg IV every 8 hours Patient reports severe reaction to beta agonists, will hold off for now Not on maintenance inhaled bronchodilators as well Will consult pulmonology for further recommendations Reported bandlike pressure around her chest last night as well Likely secondary to [employer] exacerbation Troponin x 1: Negative, trend troponins EKG: No acute ischemia or infarct Check echo D-dimer elevation CT angiogram chest negative for PE Check Doppler studies Other chronic medical problems: CAD- continue aspirin 81mg daily Intermittent complete heart block High risk for QT prolongation- has to be very careful with medications IBS GERD Anxiety-on Sertraline, As needed lorazepam Dermatomyositis- On prednisone 1 mg p.o. daily-hold for now in light of IV Solumedrol Multiple medication allergies-patient will take medications from home as she can only tolerate specific brands of medication DVT prophylaxis SCDs once DVT ruled out Conditional Code no Intubation Disposition lives at home with son plan of care discussed with patient and her son Nick at bedside in detail and at length all questions answered they are understanding, agreeable, comfortable with the plan of care Addendum 11/19/2024: Patient was seen and examined at bedside as a follow-up of COPD exacerbation. Patient reports improvement in her bandlike pressure around her chest and reports feeling back to her baseline. Will continue her antibiotic and prednisone taper. Pulmonology evaluated, discussed with pulmonology, patient refusing all sorts of treatment. Refer to pulmonology note. Patient was met again at bedside with patient's daughter at bedside, they understand that they are limited on treatment options and would like to pursue palliative care as an outpatient. Pt w/ chronic leucopenia, she is aware, she was advised to establish w/ hematology as OP, she voiced understanding. Pt wants to be discharged home today. Patient is being discharged to home with following instructions at the point of discharge: Follow-up with your primary care physician within a week time and likely you will need labs CBC/CMP/magnesium/phosphorus. You were admitted for COPD exacerbation, you will be discharged on Augmentin for 5 days course. You will be discharged on tapering dose of prednisone. You were evaluated by pulmonology while inpatient, you were recommended trial of Trelegy which you have declined. Recommend that you establish with pulmonary rehab upon discharge. You will benefit from pulmonary function test in 6 weeks time upon discharge, coordinate with your PCP office to set up the test. Follow-up with the pulmonology in 2 to 4 weeks time upon discharge. Follow-up with your cardiology as prior. You will benefit from low-dose CT scan screening of the lung for the purposes of lung cancer screening, coordinate with your PCP office to set up the test. Establish and follow-up with palliative care as an outpatient for ongoing evaluation/discussion of goals of care and symptoms management. Recommend that you follow-up with dietitian as an outpatient. Recommend that you increase protein content in your diet. Recommend low-sodium diet. For your chronic low white cell count, recommend you establish with hematology as an outpatient for further evaluation and management. Take your medications as prescribed. Please make sure that you are able to get your medications today by calling your pharmacy before you leave the hospital so that your treatment continuity is not broken. [facility] Attestation I certify that this patient is under my care and that I, or a physicians operations assistant working with me, had a face to-face encounter that meets the [id number] encounter requirements with this patient. The encounter with the patient was in whole, or in part, for the following medical condition, which is the primary reason for home health care (list medical condition): I certify that, based on my findings, the following services are medically necessary home health services: My clinical findings support the need for the above services because: Further, I certify that my clinical findings support that this patient is homebound (i.e. absences from home require considerable and taxing effort and are for medical reasons or gnosticist services or infrequently or of short dura tion when for other reasons) because: Certification for Home Health Services: Based on the above findings, I certify that this patient is confined to the home and needs intermittent senior care care, physical therapy and/or speech therapy or continues to need occupational therapy. The patient is under my care, and I have initiated the establishment of the plan of care. This patient will be followed by a physician who will periodically review the plan of care. Total Time Total Time Spent Total Time Spent (In Minutes): 50 Discharge Plan Discharge Items Patient Disposition: Home - Self-Care Reason For Visit: CHEST PAIN Discharge Diagnosis: COPD exacerbation Chronic hypoxic and hypercapnic respiratory failure on 2 L of oxygen Activity: Resume your previous activity Non-emergency contact: Primary Care Provider Call non-emergency contact if: you have any medication questions Follow-up/Referrals: Theron Ruvalcaba DO [Primary Care Provider] - (Date & Time 11/25/2024 1:40 PM Provider: Theron Ruvalcaba DO [facility] ) Diet: Heart Healthy and Lactose Intolerant Addtl Attending Provider Instructions: Follow-up with your primary care physician within a week time and likely you will need labs CBC/CMP/magnesium/phosphorus. You were admitted for COPD exacerbation, you will be discharged on Augmentin for 5 days course. You will be discharged on tapering dose of prednisone. You were evaluated by pulmonology while inpatient, you were recommended trial of Trelegy which you have declined. Recommend that you establish with pulmonary rehab upon discharge. You will benefit from pulmonary function test in 6 weeks time upon discharge, coordinate with your PCP office to set up the test. Follow-up with the pulmonology in 2 to 4 weeks time upon discharge. Follow-up with your cardiology as prior. You will benefit from low-dose CT scan screening of the lung for the purposes of lung cancer screening, coordinate with your PCP office to set up the test. Establish and follow-up with palliative care as an outpatient for ongoing evaluation/discussion of goals of care and symptoms management. Recommend that you follow-up with dietitian as an outpatient. Recommend that you increase protein content in your diet. Recommend low-sodium diet. For your chronic low white cell count, recommend you establish with hematology as an outpatient for further evaluation and management. Take your medications as prescribed. Please make sure that you are able to get your medications today by calling your pharmacy before you leave the hospital so that your treatment continuity is not broken. Pending Studies at Discharge: No Stand-Alone Forms: My [facility] [employer] Smoking Cessation Medications and DC Order Prescriptions: New amoxicillin-pot clavulanate 875-125 mg Tablet 1 tab PO BIDM 4 Days Qty: 8 0RF prednisone 20 mg tablet 20 mg PO UD Qty: 9 0RF Rx Instructions: 40 mg daily x 3 days, then 20 mg daily x 3 days. then stop. Continued sertraline [Zoloft] 50 mg Tablet 50 mg PO QAM lorazepam 0.5 mg tablet 0.5 mg PO Q8H PRN (Reason: Anxiety) prednisone 1 mg tablet 1 mg PO QAM clobetasol 0.05 % ointment 1 applic TOPICAL BID clobetasol 0.05 % solution 1 applic TOPICAL BID PRN (Reason: flare) Discharge Orders: Discharge Order (Routine); Ordered 11/19/24 Ordered By: Sarah Meng Admission Data Admit Date/Time: 11/18/24 12:05 Attending Provider: Sarah Meng Admit Provider: Shahid Muller Primary Care Provider: Theron Ruvalcaba Other Providers: Shahid Muller; Isai Keller
--- NOTE | 2024-11-20 06:50 | Electrocardiogram Report ---
Test Reason : Blood Pressure : */* mmHG Vent. Rate : 67 BPM Atrial Rate : 67 BPM P-R Int : 164 ms QRS Dur : 84 ms QT Int : 388 ms P-R-T Axes : 87 86 84 degrees QTcB Int : 409 ms Poor data quality, interpretation may be adversely affected Normal sinus rhythm Normal ECG When compared with ECG of 18-Nov-2024 09:26, Criteria for Anterior infarct are no longer Present Confirmed by Hola Gannon ([id number]) on 11/20/2024 6:49:40 AM Referred By: REFERRED SELF Confirmed By: Hola Gannon
--- NOTE | 2024-11-25 13:16 | Coding Query ---
A supporting diagnosis is required for the test/procedure performed on this patient in order for us to be reimbursed by the patient's insurance. Please provide a supporting diagnosis for the following test/procedure listed below next to the test name. *If there is no additional diagnosis for this patient that would support the following test/procedure please document that below next to the test/procedure. Test(s)/Procedure(s) that require a supporting diagnosis: * [id number] US VENOUS DOPPLER LE BI DIAGNOSIS: D dimer elevation, r/o Deep Venous Thrombosis DATE OF SERVICE: 11/18/24 Thank you Raman [facility] Information Management Once completed, please kindly fax back to [phone] For questions please call [phone] [facility]
== END 2024-11-19 14:09 | disposition home or self-care (01) ==
LOC: EDINP 09:09 → ED 09:09 → SUATTDRO 12:05 → EDINP 14:35 → 2S 15:49